=== PATIENT | male | born 1950 | race Hispanic/Latino ===

== ENCOUNTER 2018-10-06 06:53 | Emergency (ER) | payer MEDICARE ==
--- OUTSIDE RECORDS SUMMARY | 2018-10-06 06:57 | XMS REPORT ---
:1950 [facility] Address [address] [place] [address] Care Team Providers Name Role Phone Unavailable Unavailable Unavailable Payers Payer Name Policy Type Policy Number Effective Date Expiration Date Problems This patient has no known problems. Allergies, Adverse Reactions, Alerts Allergy Allergy Status Severity Reaction(s) Onset Inactive Treating Comments Name Type Date Date Clinician No Known DA Active U 2018-08 Allergies 00:00:0 0 Medications This patient has no known medications. Results Test Description Test Time Test Comments Text Results Atomic Results Result Comments COMPREHENSIVE METABOLIC PANEL 2018-09-27 14:09:00 Test Item Value Reference Range Comments SODIUM (test code=NA) 132 mEq/L 134-147 POTASSIUM (test code=K) 4.2 mEq/L 3.4-5.0 CHLORIDE (test code=CL) 102 mEq/L 100-108 CARBON DIOXIDE (test code=CO2) 24 mEq/L 21-33 ANION GAP (test code=GAP) 10 0-20 GLUCOSE (test code=GLU) 121 mg/dL 70-110 BLOOD UREA NITROGEN (test code=BUN) 12 mg/dL 7-18 GLOMERULAR FILTRATION RATE (test 74.1 80-90 Units of measure=ml/min/1.73 code=GFR) m2 CREATININE (test code=CREAT) 1.0 mg/dL 0.6-1.3 TOTAL PROTEIN (test code=PROT) 6.2 g/dL 6.4-8.2 ALBUMIN (test code=ALB) 2.30 g/dL 3.4-5.0 CALCIUM (test code=CA) 8.1 mg/dL 8.0-10.5 BILIRUBIN TOTAL (test code=BILT) 0.50 mg/dL 0.0-1.0 SGOT/AST (test code=AST) 46 IUnit/L 15-37 SGPT/ALT (test code=ALT) 76 IUnit/L 15-65 ALKALINE PHOSPHATASE TOTAL (test 128 IUnit/L 20-125 code=ALKP) COMPREHENSIVE METABOLIC [id number] 14:05:00 Test Item Value Reference Range Comments SODIUM (test code=NA) 132 mEq/L 134-147 POTASSIUM (test code=K) 4.2 mEq/L 3.4-5.0 CHLORIDE (test code=CL) 102 mEq/L 100-108 CARBON DIOXIDE (test code=CO2) 24 mEq/L 21-33 ANION GAP (test code=GAP) 10 0-20 GLUCOSE (test code=GLU) 121 mg/dL 70-110 BLOOD UREA NITROGEN (test 12 mg/dL 7-18 code=BUN) GLOMERULAR FILTRATION RATE 74.1 80-90 Units of (test code=GFR) measure=ml/min/1.73 m2 CREATININE (test code=CREAT) 1.0 mg/dL 0.6-1.3 TOTAL PROTEIN (test code=PROT) g/dL 6.4-8.2 ALBUMIN (test code=ALB) 2.30 g/dL 3.4-5.0 CALCIUM (test code=CA) 8.1 mg/dL 8.0-10.5 BILIRUBIN TOTAL (test mg/dL 0.0-1.0 code=BILT) SGOT/AST (test code=AST) 46 IUnit/L 15-37 SGPT/ALT (test code=ALT) 76 IUnit/L 15-65 ALKALINE PHOSPHATASE TOTAL IUnit/L 20-125 (test code=ALKP) CBC W/AUTO [id number] 13:55:00 Test Item Value Reference Range Comments WHITE BLOOD CELL (test code=WBC) 14.28 x10 3/uL 4.5-11.0 RED BLOOD CELL (test code=RBC) 4.54 x10 6/uL 4.00-5.60 HEMOGLOBIN (test code=HGB) 12.7 g/dL 12.5-16.9 HEMATOCRIT (test code=HCT) 39.6 % 37.5-50.7 MEAN CELL VOLUME (test code=MCV) 87.2 fL 81.0-99.0 MEAN CELL HGB (test code=MCH) 28.0 pg 27.0-33.0 MEAN CELL HGB CONCETRATION (test code=MCHC) 32.1 g/dL 33.0-37.0 RED CELL DISTRIBUTION WIDTH CV (test 13.0 % 11.5-14.5 code=RDW) RED CELL DISTRIBUTION WIDTH SD (test 41.3 fL 37.0-54.0 code=RDW-SD) PLATELET COUNT (test code=PLT) 378 x10 3/uL 150-400 MEAN PLATELET VOLUME (test code=MPV) 9.2 fL 7.0-9.0 NEUTROPHIL % (test code=NT%) 75.7 % 56.0-77.0 IMMATURE GRANULOCYTE % (test code=IG%) 1.1 % 0.0-2.0 LYMPHOCYTE % (test code=LY%) 10.8 % 14.0-32.0 MONOCYTE % (test code=MO%) 10.7 % 4.8-9.0 EOSINOPHIL % (test code=EO%) 1.1 % 0.3-3.7 BASOPHIL % (test code=BA%) 0.6 % 0.0-2.0 NUCLEATED RBC % (test code=NRBC%) 0.0 % 0-0 NEUTROPHIL # (test code=NT#) 10.82 x10 3/uL 2.0-7.6 IMMATURE GRANULOCYTE # (test code=IG#) 0.16 x10 3/uL 0.00-0.03 LYMPHOCYTE # (test code=LY#) 1.54 x10 3/uL 1.0-3.8 MONOCYTE # (test code=MO#) 1.53 x10 3/uL 0.1-0.8 EOSINOPHIL # (test code=EO#) 0.15 x10 3/uL 0.0-0.2 BASOPHIL # (test code=BA#) 0.08 x10 3/uL 0.0-0.2 NUCLEATED RBC # (test code=NRBC#) 0.00 x10 3/uL 0.0-0.1 MANUAL DIFF REQUIRED (test code=MDIFF) NO LACTIC ACID [id number] 14:05:00 Test Item Value Reference Range Comments LACTIC ACID POC (test 0.7 MMOL/L 0.90-1.70 Performed by certified code=LACTP) upset operator at [facility] PROTHROMBIN [id number] 13:52:00 Test Item Value Reference Range Comments PROTHROMBIN TIME PATIENT 12.9 SECONDS 9.3-12.9 (test code=PTP) INTERNATIONAL NORMAL RATIO 1.1 0.8-1.2 TARGET INR BY (test code=INR) INDICATION Indication INR1. Prophylaxis of venous thrombosis 2.0 - 3.0 (orthopedic surgery), Prophylaxis of venous thrombosis (other than high-risk surgery), Treatment of Deep Vein Thrombosis/Pulmonary Embolism, Prevention of systemic embolism - Tissue heart valves, Acute Myocardial Infarction (to prevent systemic embolism), Valvular heart disease, Atrial Fibrillation, Bileaflet mechanical valve in aortic position.2. Mechanical prosthetic valves (high risk), 2.5 - 3.5 Presence of Lupus Anticoagulant or Antiphospholipid Antibodies, Prevention of systemic embolism - Acute Myocardial Infarction (to prevent recurrent infarct). THROMBOPLASTIN TIME [id number] 13:52:00 Test Item Value Reference Range Comments THROMBOPLASTIN TIME PARTIAL 29.8 Seconds 25.0-39.5 Therapeutic Range: (test code=PTT) 50.4 - 88.3 Seconds Effective 09/14/2018 - XR HAND 3 + V [id number] 13:46:00 FAX: Gerber Casillas III [place]: St: REG FAX: Mariza Gallego [phone] --- Name: JONAS CASTELLANO [facility] : 1950 Age/S: 68/M [address] [place] [address] Unit #: [id number] Loc: [place] [address] Phys: Mariza Gallego Acct: [id number] Dis Date: Status: REG ER PHONE #: [phone] Exam Date: 09/25/2018 1319 FAX #: [phone] Reason: pain swelling hand EXAMS: CPT CODE: [id number] XR HAND 3 + [place] [id number] RIGHT HAND SERIES 09/25/2018 AT 1308 HOURS. CLINICAL HISTORY: Right hand pain and swelling. COMPARISONS: None. FINDINGS: 3 AP, lateral and oblique views of the right hand were obtained showing diffuse circumferential soft tissue swelling on a background of diffuse osteopenia and moderate to severe polyarticular osteoarthritis. No fracture, dislocation ordestructive bone lesions. No bony erosions. No soft tissue calcinosis, air or radiopaque foreign body. IMPRESSION: 1. Diffuse soft tissue edema and or cellulitis involving the right hand. 2. 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 SL: GUMEH at 2537 Reportedand signed by: Ham Xiong M.D. CC: Gerber Martin III, MD ; Mariza Gallego Technologist: Mary Castillo RT(R) Trnscrd Date/Time/By: 09/25/2018(0997) : By: [email or web address] Orig Print D/T: S: 09/25/2018 (1251) PAGE 1 Signed ReportBASIC METABOLIC [id number] 13:45:00 Test Item Value Reference Range Comments SODIUM (test code=NA) 136 mEq/L 134-147 POTASSIUM (test code=K) 3.9 mEq/L 3.4-5.0 CHLORIDE (test code=CL) 104 mEq/L 100-108 CARBON DIOXIDE (test code=CO2) 27 mEq/L 21-33 ANION GAP (test code=GAP) 9 0-20 GLUCOSE (test code=GLU) 158 mg/dL 70-110 BLOOD UREA NITROGEN (test 21 mg/dL 7-18 code=BUN) GLOMERULAR FILTRATION RATE 95.8 80-90 Units of measure=ml/min/1.73 (test code=GFR) m2 CREATININE (test code=CREAT) 0.8 mg/dL 0.6-1.3 CALCIUM (test code=CA) 8.7 mg/dL 8.0-10.5 URIC [id number] 13:45:00 Test Item Value Reference Range Comments URIC ACID (test code=URIC) 4.4 mg/dL 2.6-7.2 CBC W/AUTO [id number] 13:38:00 Test Item Value Reference Range Comments WHITE BLOOD CELL (test code=WBC) 11.82 x10 3/uL 4.5-11.0 RED BLOOD CELL (test code=RBC) 4.59 x10 6/uL 4.00-5.60 HEMOGLOBIN (test code=HGB) 12.7 g/dL 12.5-16.9 HEMATOCRIT (test code=HCT) 38.7 % 37.5-50.7 MEAN CELL VOLUME (test code=MCV) 84.3 fL 81.0-99.0 MEAN CELL HGB (test code=MCH) 27.7 pg 27.0-33.0 MEAN CELL HGB CONCETRATION (test code=MCHC) 32.8 g/dL 33.0-37.0 RED CELL DISTRIBUTION WIDTH CV (test 12.6 % 11.5-14.5 code=RDW) RED CELL DISTRIBUTION WIDTH SD (test 38.6 fL 37.0-54.0 code=RDW-SD) PLATELET COUNT (test code=PLT) 374 x10 3/uL 150-400 MEAN PLATELET VOLUME (test code=MPV) 9.4 fL 7.0-9.0 NEUTROPHIL % (test code=NT%) 74.1 % 56.0-77.0 IMMATURE GRANULOCYTE % (test code=IG%) 1.5 % 0.0-2.0 LYMPHOCYTE % (test code=LY%) 12.9 % 14.0-32.0 MONOCYTE % (test code=MO%) 9.6 % 4.8-9.0 EOSINOPHIL % (test code=EO%) 1.4 % 0.3-3.7 BASOPHIL % (test code=BA%) 0.5 % 0.0-2.0 NUCLEATED RBC % (test code=NRBC%) 0.0 % 0-0 NEUTROPHIL # (test code=NT#) 8.75 x10 3/uL 2.0-7.6 IMMATURE GRANULOCYTE # (test code=IG#) 0.18 x10 3/uL 0.00-0.03 LYMPHOCYTE # (test code=LY#) 1.52 x10 3/uL 1.0-3.8 MONOCYTE # (test code=MO#) 1.14 x10 3/uL 0.1-0.8 EOSINOPHIL # (test code=EO#) 0.17 x10 3/uL 0.0-0.2 BASOPHIL # (test code=BA#) 0.06 x10 3/uL 0.0-0.2 NUCLEATED RBC # (test code=NRBC#) 0.00 x10 3/uL 0.0-0.1 MANUAL DIFF REQUIRED (test code=MDIFF) NO
[2018-10-06] MEDS ORDERED: NA CHLORIDE 0.9% 0 ML ONE (07:46)
[2018-10-06 08:21] LABS: Absolute Lymphocytes (CBC) 1.1 K/uL (0.7-4.9); Absolute Monocytes 1.4 K/uL (0.1-1.3); Absolute Neutrophil 12.3 K/uL (1.8-8.0); Basophils % 0.5 % (0-1.3); Eosinophils % 0.1 % (0-4.4); Hematocrit 41.2 % (39.6-49.0); Lymphocytes % 7.5 % (15.3-44.8); MPV 7.9 fL (7.6-11.3); Monocytes % 9.2 % (3.3-12.3); RBC Red Blood Cell Count 4.92 M/uL (4.33-5.43)
[2018-10-06] MEDS ORDERED: NA CHLORIDE 0.9% 1,000 ML ONE ×2 (08:23→08:25)
[2018-10-06] MEDS ORDERED: ONDANSETRON 4 MG/2 ML VIAL ONE (08:36)
[2018-10-06 08:38] LABS: Protime INR 1.13
[2018-10-06 08:55] LABS: ALT/SGPT 77 U/L (12-78); AST/SGOT 36 U/L (15-37); Albumin 2.6 g/dL (3.4-5.0); Alkaline Phosphatase 146 U/L (45-117); BUN Blood Urea Nitrogen 19 mg/dL (7-18); Bicarbonate 25 mmol/L (21-32); Bilirubin Direct 0.2 mg/dL (0-0.2); Bilirubin Total 0.7 mg/dL (0.2-1.0); CKMB Creatine Kinase MB < 1.0 ng/mL (0.3-3.6); Creatine Phosphokinase 16 U/L (39-308); Glucose Level 93 mg/dL (74-106); Lipase 142 U/L (73-393); Potassium 4.4 mmol/L (3.5-5.1); Protein, Total 7.3 g/dL (6.4-8.2); Sodium Level 132 mmol/L (136-145); Troponin (Emerg Dept Use Only) < 0.02 ng/mL (0.0-0.045)
[2018-10-06 09:00] LABS: Urine Bacteria <20 /HPF (NONE SEEN); Urine Culture Reflex Order NOT NEEDED; Urine Mucus 3+ /HPF (NONE SEEN); Urine RBC <5 /HPF (NONE SEEN)
[2018-10-06 09:45] LABS: Urine Blood NEGATIVE (NEG); Urine Glucose NEGATIVE (NEG); Urine Protein 1+ (NEG); Urine pH 6.5 (5.0-7.0)
[2018-10-06] MEDS ORDERED: PIPER/TAZO/NS 3.375gm 3.375 GM/100 ML BAG ONE (10:03)
--- NOTE | 2018-10-06 10:29 | RAD REPORT ---
EXAM DESCRIPTION: Tessa Single View10/06/2018 7:55 am CLINICAL HISTORY: Weight loss COMPARISON: July 2017 FINDINGS: Mild bilateral reticular lung opacities. The heart is normal size IMPRESSION: Mild bilateral reticular lung opacities may indicate pneumonitis/pneumonia
--- NOTE | 2018-10-06 10:34 | RAD REPORT ---
EXAM DESCRIPTION: CT - Abdomen Pelvis W Contrast - 10/06/2018 10:11 am CLINICAL HISTORY: Abdominal pain, unexplained weight loss COMPARISON: None. TECHNIQUE: Biphasic, helical CT imaging of the abdomen and pelvis was performed following 100 ml non -ionic IV contrast. Oral contrast was given. All CT scans are performed using dose optimization technique as appropriate and may include automated exposure control or mA/KV adjustment according to patient size. FINDINGS: No large mass or consolidation. Reticulonodular opacities present in the lower right lung field. No pericardial effusion. [place] of the distal esophagus are thickened. Multiple lymph nodes are seen near the GE junction up to 2.7 cm in size. Several are centrally lucent. Liver size is normal. A 5 centimeter thin-walled homogeneous fluid attenuation mass in the medial rig ht lower lobe has the appearance of a benign incidental cyst. In the inferior most aspect right lobe there is a 15 millimeter rounded low-density mass not meeting strict cyst criteria. Spleen and pancreas show no suspicious findings. Gallbladder and biliary tree are also without suspic ious finding. Gallstones can be occult. Renal function is symmetric. There is mild left-sided hydronephrosis present without an obstructing c alculus, mass or other acute finding identifiable. No pyelonephritis or acute parenchymal process. No bladder abnormalities. Right adrenal mass is present 2.5 cm in size. This does not meet benign adeno ma diagnostic criteria. Stomach is only partially filled with contrast. No gross evidence for gastric wall mass. No dilated s mall bowel loops. [place] of the terminal ileum appear thickened. Patient has numerous lymph nodes in t he right lower quadrant and periappendiceal region up to 15 mm in size. Many of these are centrally h ypodense. In the midline abdomen (image 47/103) there is a 3.5 x 2.3 centimeter mass or large lymph n ode. Another 2.1 centimeter mass or lymph node is present in the left anterior abdomen mesenteric a ( image 43/103). These mesenteric lymph nodes have a similar imaging characteristics to the GE junction region lymph nodes. The dominant mid abdomen 3.5 centimeter mass does not have calcifications. No ca lcifications in the mesenteries. No free air, pneumatosis or free fluid. There is sigmoid diverticulosis without diverticulitis. Large fat only right inguinal hernia present. No suspicious bony findings. IMPRESSION: No bowel obstruction, free air or surgically emergent finding. Patient has multiple abnormal lymph nodes at the GE junction, central mesentery, right lower quadrant and periappendiceal region. Largest mass in the central mesenteric does not contain calcifications. [place] of the terminal ileum are thickened but no other bowel mass or focal abnormality. Appendix is n ormal in appearance. Distal esophagus de la cruz are thickened. Nonspecific reticulonodular opacities in the right lower lobe that have a infectious/inflammatory tiana earance. Malignancy is suspected rather than reactive lymphadenopathy. Carcinoid would be a possibility. Lymph carol is possible as well. A definitive primary malignancy is not identifiable.
--- NOTE | 2018-10-06 10:39 | EKG ---
Test Date: 2018-10-06 Test Time: 07:46:30 Jewel Bearing Turner: ROSA MEASUREMENT RESULTS: Intervals: Rate: 121 VT: 128 QRSD: 74 QT: 306 QTc: 434 [place]: P: 78 VT: 128 QRS: 24 T: 56 INTERPRETIVE STATEMENTS: Sinus tachycardia Otherwise normal ECG Compared to ECG 04/29/1998 17:39:00 ST (T wave) deviation no longer present Electronically Signed On 10-06-18 10:38:58 CDT by Javier Dolan
--- NOTE | 2018-10-06 11:33 | ER ---
Nurse's Notes [facility] Name: Manjit Delong Age: 68 yrs Sex: Male : 1950 Arrival Date: 10/06/2018 Time: 07:00 Bed 15 Private MD: Diagnosis: Weakness;Abnormal weight loss;Malignant etiology of unknown origin;Fever, unspecified Presentation: 10/06 07:11 Presenting complaint: Patient states: R arm pain x 1 month, decreased appetite and ss weight loss x 3 weeks. Pt reports a total weight loss of 20 lbs, recently. Has been seen in [place] [facility] and [place] [facility] and was told he has a low blood count and arthritis to his R arm. Transition of care: patient was not received from another setting of care. Onset of symptoms was August 2018. Risk Assessment: Do you want to hurt yourself or someone else? Patient reports no desire to harm self or others. Initial Sepsis Screen: Does the patient meet any 2 criteria? No. Patient's initial sepsis screen is negative. Does the patient have a suspected source of infection? No. Patient's initial sepsis screen is negative. Care prior to arrival: None. 07:11 Method Of Arrival: Ambulatory ss 07:11 Acuity: DARLYN 2 ph 07:12 Risk Assessment: Do you want to hurt yourself or someone else? Patient reports no ph desire to harm self or others. Historical: - Allergies: 07:13 No Known Allergies; ph - PMHx: 07:13 Hypertension; ph - PSHx: 07:13 None; ph - Immunization history:: Adult Immunizations up to date. - Social history:: Smoking status: Patient/guardian denies using tobacco, but has a distant history of tobacco abuse. - Ebola Screening: : No symptoms or risks identified at this time. Screenin:12 Abuse screen: Denies threats or abuse. Denies injuries from another. Nutritional ph screening: No deficits noted. Tuberculosis screening: No symptoms or risk factors identified. Fall Risk None identified. Assessment: 07:30 General: Appears in no apparent distress. comfortable, slender, well groomed, Behavior ph is calm, cooperative, appropriate for age, Reports fever for > 3 days, intermittent. Pain: Complains of pain in right hand. Neuro: Level of Consciousness is awake, alert, obeys commands, Oriented to person, place, time, situation, Reports numbness in dorsal aspect of distal phalanx of right index finger, dorsal aspect of middle phalanx of right index finger, dorsal aspect of proximal phalanx of right index finger, dorsal aspect of distal phalanx of right middle finger, dorsal aspect of middle phalanx of right middle finger, dorsal aspect of proximal phalanx of right middle finger and right index fingernail weakness in " all over" Denies dizziness, difficulty swallowing. Cardiovascular: Reports fatigue, lightheadedness, Denies chest pain, nausea, shortness of breath, vomiting, Capillary refill < 3 seconds in bilateral fingers Patient's skin is warm and dry. Respiratory: Airway is patent Respiratory effort is even, unlabored, Respiratory pattern is regular, symmetrical, Denies cough, shortness of breath. GI: Abdomen is flat, non-distended, Patient currently denies abdominal pain, diarrhea, nausea, vomiting. : Reports urinary frequency, Denies burning with urination. Derm: Skin is intact, Skin is pink, warm \\T\\ dry. Musculoskeletal: Circulation, motion, and sensation intact. Range of motion: intact in all extremities. 08:30 Reassessment: Patient appears in no apparent distress at this time. Patient and/or ph family updated on plan of care and expected duration. Pain level reassessed. Patient is alert, oriented x 3, equal unlabored respirations, skin warm/dry/pink. Pt completed PO contrast CT notified. 09:30 Reassessment: Patient appears in no apparent distress at this time. Patient and/or ph family updated on plan of care and expected duration. Pain level reassessed. Patient is alert, oriented x 3, equal unlabored respirations, skin warm/dry/pink. Pt resting quietly, awaiting CT scan, family at bedside. 10:30 Reassessment: Patient and/or family updated on plan of care and expected duration. Pain aj1 level reassessed. General: Appears in no apparent distress. comfortable, Behavior is calm, cooperative, appropriate for age. Neuro: Level of Consciousness is awake, alert, obeys commands. Cardiovascular: Patient's skin is warm and dry. Respiratory: Airway is patent Respiratory effort is even, unlabored, Respiratory pattern is regular, symmetrical. GI: Abdomen is flat, non-distended. Derm: Skin is pink, warm \\T\\ dry. normal. Musculoskeletal: Circulation, motion, and sensation intact. 11:30 Reassessment: Patient appears in no apparent distress at this time. No changes from aj1 previously documented assessment. Patient and/or family updated on plan of care and expected duration. Pain level reassessed. Patient is alert, oriented x 3, equal unlabored respirations, skin warm/dry/pink. 12:30 Reassessment: Patient states that he feels very hot, patient appears flushed. Notified aj1 Javier Funk NP that patient is presently flushed, febrile. Orders received. 13:30 Reassessment: Patient states that he is feeling a bit better since administration of aj1 Motrin. 14:22 Reassessment:. aj1 14:39 Reassessment: Patient and/or family updated on plan of care and expected duration. Pain aj1 level reassessed. General: Appears in no apparent distress. comfortable, Behavior is calm, cooperative, appropriate for age. Neuro: Level of Consciousness is awake, alert, obeys commands. Cardiovascular: Patient's skin is warm and dry. Respiratory: Airway is patent Respiratory effort is even, unlabored, Respiratory pattern is regular, symmetrical. GI: Abdomen is flat, non-distended. Derm: Skin is pink, warm \\T\\ dry. normal. Musculoskeletal: Circulation, motion, and sensation intact. 15:42 Reassessment: Patient appears in no apparent distress at this time. No changes from aj1 previously documented assessment. Patient and/or family updated on plan of care and expected duration. Pain level reassessed. Patient is alert, oriented x 3, equal unlabored respirations, skin warm/dry/pink. Vital Signs: 07:11 Weight 68.04 kg; Height 5 ft. 6 in. (167.64 cm); ss 07:23 BP 142 / 81; Pulse 122; Resp 20; Temp 99.6; Pulse Ox 98% on R/A; Weight 68.04 kg; ph 08:25 BP 144 / 71; Pulse 112; Resp 18; Temp 99.6(TE); Pulse Ox 98% on R/A; mh5 09:38 BP 140 / 72; Pulse 109; Resp 18; Temp 98.6(O); Pulse Ox 99% on R/A; mh5 10:42 BP 147 / 72; Pulse 112; Resp 17; Temp 98.9; Pulse Ox 97% on R/A; mh5 11:45 BP 144 / 69; Pulse 118; Resp 20; Pulse Ox 99% on R/A; aj1 12:24 BP 157 / 75; Pulse 122; Resp 20; Temp 102.6(O); Pulse Ox 99% on R/A; mh5 13:14 BP 153 / 67; Pulse 118; Resp 20; Temp 101.8(O); Pulse Ox 98% ; mh5 14:07 BP 135 / 73; Pulse 117; Resp 20; Temp 98.6; Pulse Ox 97% on R/A; aj1 15:42 BP 143 / 56; Pulse 102; Resp 20; Temp 98.4(O); Pulse Ox 98% on R/A; aj1 07:23 Body Mass Index 24.21 (68.04 kg, 167.64 cm) ph ED Course: 07:00 Patient arrived in ED. es 07:06 [facility]C [facility] snw 07:06 Jarrett Lei MD is Attending Physician. snw 07:11 Kathya Meeks, CARLENE is Primary Nurse. ph 07:11 Arm band placed on right wrist. ss 07:13 Triage completed. ss 07:24 Served as a staff auditor during rectal exam. ph 07:46 EKG done, by endo tech. reviewed by Annika DAVIDSON. at1 07:50 Inserted saline lock: 20 gauge in right antecubital area, using aseptic technique. mh5 Blood collected. 07:54 X-ray completed. Portable x-ray completed in exam room. Patient tolerated procedure kw well. 07:55 Chest Single View XRAY In Process Unspecified. EDMS 08:05 Initial lab(s) drawn, by ks, sent to lab. First set of blood cultures drawn by me, [facility] Second set of blood cultures drawn by me, T\\T\\S collected, blood band applied to patient. 08:15 Patient has correct armband on for positive identification. Placed in gown. Bed in low mh5 position. Call light in reach. Side rails up X 1. Adult w/ patient. Warm blanket given. Pulse ox on. NIBP on. 08:28 Liver (Hepatic) Function Sent. mh5 08:28 Creatine Phosphokinase Sent. mh5 08:28 CKMB Creatine Kinase MB Sent. mh5 08:28 Occult Blood--Ancillary Sent. mh5 08:28 Basic Metabolic Panel Sent. mh5 08:28 Blood Culture Sent. mh5 08:28 Type and Screen Sent. mh5 08:28 C-Reactive Protein Sent. mh5 08:29 T\\T\\S Sent. mh5 08:29 C-Reactive Protein Sent. 5 08:29 Bilirubin, Direct Sent. mh5 08:29 Basic Metabolic Panel Sent. mh5 08:29 Blood Culture Adult (2) Sent. 5 08:29 CBC with Diff Sent. 5 08:30 Ckmb Sent. 5 08:30 CPK Sent. 5 08:30 Lactate Sent. 5 08:30 Lipase Sent. 5 08:30 Procalcitonin Sent. 5 08:30 Protime (+inr) Sent. 5 08:31 Ptt, Activated Sent. 5 08:31 Troponin (emerg Dept Use Only) Sent. [facility] 10:00 CT completed. Patient moved to CT via wheelchair. jg6 10:11 CT Abd/Pelvis - W/Contrast In Process Unspecified. EDMS 11:30 Louisa Krishna MD is Hospitalizing Provider. snw 14:21 Report given to CARLENE Larsen at [facility]. aj1 15:42 Patient transferred, IV remains in place. aj1 Administered Medications: 08:20 Drug: NS 0.9% (30 ml/kg) 30 ml/kg Route: IV; Rate: bolus; Site: right antecubital; ph 10:38 Follow up: Response: No adverse reaction; IV Status: Completed infusion; IV Intake: ph 2000ml 08:31 Drug: Zofran 4 mg Route: IVP; Site: right antecubital; ph 10:37 Follow up: Response: No adverse reaction; Nausea is decreased ph 11:17 Drug: Zosyn 3.375 grams Route: IVPB; Infused Over: 60 mins; Site: right antecubital; aj1 12:15 Follow up: IV Status: Completed infusion; IV Intake: 100ml aj1 12:59 Drug: Motrin 600 mg Route: PO; aj1 14:40 Follow up: Response: No adverse reaction aj1 Point of Care Testing: Blood Glucose: 08:15 Blood Glucose: 104 mg/dL; [facility] Ranges: Intake: 10:38 IV: 2000ml; Total: 2000ml. ph 12:15 IV: 100ml; Total: 2100ml. aj1 Outcome: 11:33 Decision to Hospitalize by Provider. snw 14:14 ER care complete, transfer ordered by . snw 15:43 [facility]red by ground EMS to [facility]. aj1 15:43 Condition: stable 15:43 Discharge instructions given to patient, family, Instructed on the need for admit, Demonstrated understanding of instructions. 16:05 Patient left the ED. aj1 Signatures: Dispatcher [employer] EDGosia Burroughs RN RN aj1 Annika Funk, CURVE SAW OPERATOR-C CURVE SAW OPERATOR-Csnw Nikia Alarcon Shelby, RN RN Mary Sharif Amanda, pickling solution maker EKG Tat1 Kathya Meeks RN RN Keyana Chadwick [facility] Alonzo, Tamanna 6 Corrections: (The following items were deleted from the chart) 07:24 07:11 Acuity: DARLYN 3 ss ph
--- NOTE | 2018-10-06 11:34 | EDPHYS ---
Physician Documentation [facility] Name: Manjit Delong Age: 68 yrs Sex: Male : 1950 Arrival Date: 10/06/2018 Time: 07:00 Bed 15 Private MD: ED Physician Jarrett Lei HPI: 10/06 07:37 This 68 yrs old Male presents to ER via Ambulatory with complaints of snw Weakness, Decreased Appetite. 07:37 The patient presents to the emergency department with weakness of the entire body, snw generalized weakness, that is moderate. Onset: The symptoms/episode began/occurred gradually, 1 month(s) ago, and became worse and became persistent. Context: occurred at home. Associated signs and symptoms: Pertinent positives: paresthesias, to right shoulder, elbow, hand. Severity of symptoms: At their worst the symptoms were moderate. Current symptoms: malaise, fatigue. The patient has not experienced similar symptoms in the past. multiple different providers that have given medication for "skin infection" and then "arthritis", pt was told he was anemic. Historical: - Allergies: 07:13 No Known Allergies; ph - PMHx: 07:13 Hypertension; ph - PSHx: 07:13 None; ph - Immunization history:: Adult Immunizations up to date. - Social history:: Smoking status: Patient/guardian denies using tobacco, but has a distant history of tobacco abuse. - Ebola Screening: : No symptoms or risks identified at this time. ROS: 07:36 Eyes: Negative for injury, pain, redness, and discharge, ENT: Negative for injury, snw pain, and discharge, Neck: Negative for injury, pain, and swelling, Cardiovascular: Negative for chest pain, palpitations, and edema, Respiratory: Negative for shortness of breath, cough, wheezing, and pleuritic chest pain, Back: Negative for injury and pain, : Negative for injury, bleeding, discharge, and swelling, MS/Extremity: Negative for injury and deformity, Skin: Negative for injury, rash, and discoloration, Neuro: Negative for headache, weakness, numbness, tingling, and seizure, Psych: Negative for depression, anxiety, suicide ideation, homicidal ideation, and hallucinations. 07:36 Constitutional: Positive for body aches, fatigue, malaise, poor PO intake, weight loss. 07:36 Abdomen/GI: Positive for anorexia, 20# wt loss in 3wks. Exam: 07:32 Head/Face: Normocephalic, atraumatic. snw 07:32 ENT: Nares patent. No nasal discharge, no septal abnormalities noted. Tympanic membranes are normal and external auditory canals are clear. Oropharynx with no redness, swelling, or masses, exudates, or evidence of obstruction, uvula midline. Mucous membranes moist. Neck: Trachea midline, no thyromegaly or masses palpated, and no cervical lymphadenopathy. Supple, full range of motion without nuchal rigidity, or vertebral point tenderness. No Meningismus. Chest/axilla: Normal chest wall appearance and motion. Nontender with no deformity. No lesions are appreciated. 07:32 Respiratory: Lungs have equal breath sounds bilaterally, clear to auscultation and percussion. No rales, rhonchi or wheezes noted. No increased work of breathing, no retractions or nasal flaring. Abdomen/GI: Soft, non-tender, with normal bowel sounds. No distension or tympany. No guarding or rebound. No evidence of tenderness throughout. Back: No spinal tenderness. No costovertebral tenderness. Full range of motion. 07:32 MS/ Extremity: Pulses equal, no cyanosis. Neurovascular intact. Full, normal range of motion. Neuro: Awake and alert, GCS 15, oriented to person, place, time, and situation. Cranial nerves II-XII grossly intact. Motor strength 5/5 in all extremities. Sensory grossly intact. Cerebellar exam normal. Normal gait. 07:32 Constitutional: The patient appears alert, awake, anxious, frail, clothes too big 07:32 Eyes: Conjunctiva: normal, Sclera: icterus, is present, mild. 07:32 Cardiovascular: Rate: tachycardic, Heart sounds: normal, JVD: is noted on left, to 2 cm.. 07:32 Skin: Appearance: Color: dusky, pale. 07:32 Psych: Behavior/mood is pleasant, cooperative, anxious. 07:49 ECG was reviewed by the Attending Physician. snw Vital Signs: 07:11 Weight 68.04 kg; Height 5 ft. 6 in. (167.64 cm); ss 07:23 BP 142 / 81; Pulse 122; Resp 20; Temp 99.6; Pulse Ox 98% on R/A; Weight 68.04 kg; ph 08:25 BP 144 / 71; Pulse 112; Resp 18; Temp 99.6(TE); Pulse Ox 98% on R/A; mh5 09:38 BP 140 / 72; Pulse 109; Resp 18; Temp 98.6(O); Pulse Ox 99% on R/A; mh5 10:42 BP 147 / 72; Pulse 112; Resp 17; Temp 98.9; Pulse Ox 97% on R/A; mh5 11:45 BP 144 / 69; Pulse 118; Resp 20; Pulse Ox 99% on R/A; aj1 12:24 BP 157 / 75; Pulse 122; Resp 20; Temp 102.6(O); Pulse Ox 99% on R/A; mh5 13:14 BP 153 / 67; Pulse 118; Resp 20; Temp 101.8(O); Pulse Ox 98% ; mh5 14:07 BP 135 / 73; Pulse 117; Resp 20; Temp 98.6; Pulse Ox 97% on R/A; aj1 15:42 BP 143 / 56; Pulse 102; Resp 20; Temp 98.4(O); Pulse Ox 98% on R/A; aj1 07:23 Body Mass Index 24.21 (68.04 kg, 167.64 cm) ph MDM: 07:06 Patient medically screened. snw 11:33 Data reviewed: vital signs, nurses notes. Data interpreted: Pulse oximetry: on room air snw is 97 %. Interpretation: normal. Counseling: I had a detailed discussion with the patient and/or guardian regarding: the historical points, exam findings, and any diagnostic results supporting the discharge/admit diagnosis, lab results, radiology results, the need for further work-up and treatment in the hospital. Physician consultation: Citlaly Araujo MD was called at 11:33, was contacted at 11:33, regarding admission, to the medical/surgical unit. 12:09 ED course: Dr. Krishna has spoken with general surgery, GI specialist x 2, and Dr. Krishnamurthy. snw Request pt be transferred to higher level of care for EUS/FNA. 12:36 Physician consultation: Dr. Bruce was called at 12:36, was contacted at 12:36, snw regarding regarding transfer, to [facility]. 12:38 Physician consultation: Dr. Kamara was called at 12:38, was contacted at 12:38, [facility] regarding consult, patient's condition, Dr. Kamara kindly accepts consult. Hospitalist will call back shortly.. 10/06 07:28 Order name: Urine Culture [facility] 10/06 07:28 Order name: T\\T\\S [facility] 10/06 07:28 Order name: C-Reactive Protein [facility] 10/06 07:28 Order name: Bilirubin, Direct [facility] 10/06 07:28 Order name: Basic Metabolic Panel [facility] 10/06 07:28 Order name: Blood Culture Adult (2) [facility] 10/06 07:28 Order name: CBC with Diff [facility] 10/06 07:28 Order name: Ckmb [facility] 10/06 07:28 Order name: CPK [facility] 10/06 07:28 Order name: Lactate; Complete Time: 08:40 snw 10/06 07:28 Order name: LFT's [facility] 10/06 07:28 Order name: Lipase; Complete Time: 09:03 snw 10/06 07:28 Order name: Procalcitonin; Complete Time: 09:38 snw 10/06 07:28 Order name: Protime (+inr); Complete Time: 09:03 snw 10/06 07:28 Order name: Ptt, Activated; Complete Time: 09:03 snw 10/06 07:28 Order name: Troponin (emerg Dept Use Only); Complete Time: 09:03 snw 10/06 07:28 Order name: Urine Microscopic Only; Complete Time: 09:03 snw 10/06 07:29 Order name: Urine Culture [facility] 10/06 07:29 Order name: Type and Screen; Complete Time: 09:38 EDMS 10/06 07:29 Order name: C-Reactive Protein; Complete Time: 09:03 EDMS 10/06 07:29 Order name: Basic Metabolic Panel; Complete Time: 09:03 EDMS 10/06 07:29 Order name: Blood Culture [facility] 10/06 07:29 Order name: CBC with Automated Diff; Complete Time: 08:28 EDMS 10/06 07:29 Order name: Occult Blood--Ancillary; Complete Time: 09:38 bd 10/06 07:29 Order name: CKMB Creatine Kinase MB; Complete Time: 09:03 EDMS 10/06 07:29 Order name: Creatine Phosphokinase; Complete Time: 09:03 EDMS 10/06 07:30 Order name: Liver (Hepatic) Function; Complete Time: 09:03 EDMS 10/06 07:46 Order name: Urine Dipstick--Ancillary (enter results); Complete Time: 09:46 bd 08 08:13 Order name: Glucose, Ancillary Testing; Complete Time: 08:21 EDMS 10/06 07:28 Order name: Chest Single View XRAY; Complete Time: 10:31 snw 10/06 07:28 Order name: Cardiac monitoring; Complete Time: 07:40 snw 10/06 07:28 Order name: EKG - Nurse/Tech; Complete Time: 08:08 snw 10/06 07:28 Order name: IV Saline Lock - Large Bore; Complete Time: 08:08 snw 10/06 07:28 Order name: Labs collected and sent; Complete Time: 08:08 snw 10/06 07:28 Order name: O2 Per Protocol; Complete Time: 07:40 snw 10/06 07:28 Order name: O2 Sat Monitoring; Complete Time: 07:40 snw 10/06 07:28 Order name: Urine Dipstick-Ancillary (obtain specimen); Complete Time: 07:40 snw 10/06 07:28 Order name: CT Abd/Pelvis - W/Contrast; Complete Time: 10:41 snw 08 10:10 Order name: EKG Electrocardiogram EDMS 10/06 12:33 Order name: Flu; Complete Time: 13:41 snw EC:49 Rate is 121 beats/min. Rhythm is regular. QRS Wink is Normal. AL interval is normal. snw QRS interval is normal. QT interval is normal. No Q waves. T waves are Normal. No ST changes noted. Clinical impression: Sinus tachycardia and with biphasic p wave. Administered Medications: 08:20 Drug: NS 0.9% (30 ml/kg) 30 ml/kg Route: IV; Rate: bolus; Site: right antecubital; ph 10:38 Follow up: Response: No adverse reaction; IV Status: Completed infusion; IV Intake: ph 2000ml 08:31 Drug: Zofran 4 mg Route: IVP; Site: right antecubital; ph 10:37 Follow up: Response: No adverse reaction; Nausea is decreased ph 11:17 Drug: Zosyn 3.375 grams Route: IVPB; Infused Over: 60 mins; Site: right antecubital; [facility] 12:15 Follow up: IV Status: Completed infusion; IV Intake: 100ml [facility] 12:59 Drug: Motrin 600 mg Route: PO; aj 14:40 Follow up: Response: No adverse reaction aj Point of Care Testing: Blood Glucose: 08:15 Blood Glucose: 104 mg/dL; mh5 Ranges: Critical Glucose Levels:Adult <50 mg/dl or >400 mg/dl <40 mg/dl or >180 mg/dl Disposition: 10/07 06:56 Co-signature as Attending Physician, Jarrett Lei MD I agree with the assessment and kdr plan of care. Disposition: 10/06/18 14:14 Transfer ordered to [facility]. Diagnosis are Weakness, Abnormal weight loss, Malignant etiology of unknown origin, Fever, unspecified. - Reason for transfer: Higher level of care. - Accepting physician is Dr. Bruce. - Condition is Stable. - Problem is new. - Symptoms have worsened. Signatures: Dispatcher [employer] [facility] Gosia Smith RN RN aj1 Jarrett Lei MD MD [facility] Annika Funk, LINEN ATTENDANT-C LINEN ATTENDANT-Csnw Emerita Forte RN RN Kathya Meeks RN RN ph Corrections: (The following items were deleted from the chart) 10/06 07:30 07:29 Bilirubin Direct ordered. [facility] 12:09 11:33 Hospitalization Ordered by Louisa Krishna MD for Inpatient Admission. Preliminary snw diagnosis is Weakness; Abnormal weight loss; Inflammatory disease of abdomen - + CT findings for malignant etiology. Bed requested for Telemetry/MedSurg (Inpatient). Status is Inpatient Admission. Condition is Stable. Problem is new. Symptoms are unchanged. UTI on Admission? No. snw 14:22 13:25 Physician consultation: Dr. Bruce was called at 13:25, was contacted at 13:25, [facility] regarding regarding transfer, Dr. Bruce kindly accepts pt in transfer sn 16:05 14:14 10/06/2018 14:14 Transfer ordered to [facility]. Diagnosis is aj1 Weakness; Abnormal weight loss; Malignant etiology of unknown origin; Fever, unspecified. Reason for transfer: Higher level of care. Accepting physician is Dr. Bruce. Condition is Stable. Problem is new. Symptoms have worsened. snw
--- NOTE | 2018-10-06 12:43 | P.CNS ---
Date of Consult: 10/06/18 Consultation Requested by ER for hospitalization. 68-year-old male with significant history presented to the ED complaining of having some generalized weakness on intentional weight loss just not feeling well for past 3 weeks. Patient stated that over time he has been having worsening of his symptoms and thus decided to come to the ER. In the ER patient had extensive workup done which included CBC CMP abdominal CT and chest x-ray. CBC was consistent with elevated white count [id number] along with elevated CRP of 276. Patient also was tachycardic with a heart rate of 120. Patient abdominal CT was consistent with marked lymphadenopathy in the distal esophagus area along with the mesenteric [place]. Abdominal CT was concerning for carcinoid tumor versus lymphoma rather than infectious etiology. ED the consulted hospital is an general surgery for admission the patient for medical management and surgical procedure. After reviewing the case thoroughly looking at all the imaging and lab work and discussing the case with GI, general surgery , oncology patient at this time will require tissue biopsy for starting medical management for carcinoid tumor versus lymphoma. Abdominal CT did not have any lymph nodes that were able to be biopsied in the colon are a colonoscopy at this time would not be beneficial for diagnosis. Patient however can't get and notes biopsy that were present in the distal esophagus area and requires EUS- FNA the biopsy and get a tissue diagnosis for the patient. At that time PA in the ER was notified regarding the need to transfer the patient to a higher level of care for further treatment. Patient can have a colonoscopy done along with the [place] at the tertiary care centers well. ED physician was also notified that patient did also have lab work done there to achieve the final diagnosis. At this time for the consultation with GI, general surgery, oncology hospitalist team recommends the patient be transferred to a tertiary center for further care to 1st get a tissue biopsy if an appropriate diagnosis for medical management. If the patient seen in the ER for and okay with the tertiary center patient can have workup done outpatient however we will leave it up to the tertiary care doctor to make that decision.
[2018-10-06] MEDS ORDERED: IBUPROFEN 400 MG TAB ONE (13:00)
[2018-10-06] MEDS ORDERED: IBUPROFEN 200 MG TAB PO ONE ×2 (13:01→13:07)
== END 2018-10-06 16:05 | disposition short-term general hospital (02) ==
LOC: ER 06:53
DX: C80.1 Malignant (primary) neoplasm, unspecified (principal); R63.4 Abnormal weight loss; R50.9 Fever, unspecified; I10 Essential (primary) hypertension
CPT/HCPCS: 96365; 96367; 93005; 87040 ×2; 87088; 85025; 80048; 36415; 86900; 86850; 82550; 85610; 86901; 82962; 80076; 83605; 85730; 82272; 84484; 82553; 83690; 84145; 86140; 87804 ×2; 74177; 71045; 96375; 99285; 96366; Q9967; J2543; J7030 ×2; J2405; 81003; 81015; 87086

== ENCOUNTER 2024-06-14 10:02 | Inpatient (IN) | payer MEDICARE, OTHER ==
--- OUTSIDE RECORDS SUMMARY | 2024-06-14 10:12 | XMS REPORT | Continuity of Care Document ---
Author Name Unknown Address [address] [facility] [address] [place] [address] [facility] thconnect Address [address] [facility] [place] [address] Care Team Providers Care Charting Clerk Name Role Phone Nodal_J Attending Clinician Unavailable Michael_Carlos Attending Clinician Unavailable EMMETT ANDREW Attending Clinician Unavailabl e Nodal_J Admitting Clinician Unavailable Michael_Carlos Admitting Clinician Unavailable GINNY SMITH Admitting Clinician Unavailab le Payers Payer Name Policy Type Policy Number Effective Date Expirati on Date Source [facility] (MEDICARE REPLACEMENT HMO) [id number] 2020 00:00:00 Problems Condition Name Condition Details Condition Category Status Onset Date Resolution Date Last Treatment Date Treating Clinician Comments Source Esophageal thickening Esophageal thickening Disease Active 10-06 00:00: 00 [facility] Lymphadeno mandi, abdominal Lymphadeno mandi, abdominal Disease Active 10-06 00:00: 00 [facility] Fever of unknown origin (FUO) Fever of unknown origin (FUO) Disease Active 10-06 00:00: 00 [facility] Arthralgia of right hand Arthralgia of right hand Disease Active 10-06 00:00: 00 [facility] Allergies, Adverse Reactions, Alerts Allergy Name Allergy Type Status Severity Reaction(s) Onset Date Inactive Date Treating Clinician Comments Source No Known Allergie s DA Active U 09-25 00:00: 00 [facility] NO KNOWN ALLERGIE S Allergy Active [facility] Social History Social Habit Start Date Stop Date Quantity Comments Source Tobacco use and exposure 2018-10-15 00:00:00 2018-10-15 00:00:00 Former user [facility] Sex Assigned At 1950 00:00:00 1950 00:00:00 [facility] Smoking Status Start Date Stop Date Source Former smoker 2018-10-15 00:00:00 2018-10-15 00:00:00 [facility] Medications Ordered Medication Name Filled Medication Name Start Date Stop Date Current Medication? Ordering Clinician Indication Dosage Frequency Signature (SIG) Comments Components Source acetaminoph en (TYLENOL) 325 MG tablet 10-28 21:58: 09 Yes 650mg Take 650 mg by mouth every 6 (six) hours as needed for Pain. [facility] Encounters Start Date/Time End Date/Time Encounter Type Admission Type Attending Clinicians Care Facility Care Department Encounter ID Source 2022-04-03 11:42:10 2022-04-03 11:42:10 Outpatient [facility] [id number] [facility] 2021-12-17 11:06:00 2021-12-17 11:06:00 [place]odal[place] [facility] [place] [id number] 2021-12-17 00:00:00 2021-12-17 00:00:00 [place]patient [place]odal[place] [facility] [id number] 2021-12-13 07:13:00 2021-12-13 07:13:00 Outpatient Trevino[facility]M [facility] [id number] [facility] 2021-07-12 06:55:00 2021-07-12 06:55:00 [place] [facility] [place] [id number] Results Test Description Test Time Test Comments Results Result Co mments Source HEMOGLOBIN [id number] 03:35:35* Test Item Value Reference Range Interpretation Comme nts HEMOGLOBIN A1c (test code = 99499) 5.7 % 4.2-5.6 H LIPID [id number] 03:34:08* Test Item Value Reference Range Interpretation Comme nts CHOLESTEROL (test code = 2210) 213 MG/DL <200 H TRIGLYCERIDES (test code = 2232) 116 MG/DL <150 HDL CHOLESTEROL (test code = 2220) 45 MG/DL >39 CALC LDL CHOL (test code = 7) 145 MG/DL <100 H NOTE: CALCULATED LDL IS BASED ON PADMINI-BUITRAGO METHOD WHICHINCLUDES ADJUSTABLE TRIGLYCERIDE:VLDL CHOLESTEROL RATIO.THIS FACTOR VARIES BY MEASURED TRIGLYCERIDE AND NON-HDLCHOLESTEROL CONCENTRATIONS WITH INCREASED CALCULATED LDL SEENIN HIGHER TRIGLYCERIDE OR LOWER NON-HDL SPECIMENS. FOR MOREINFORMATION, SEE CLIENT ANNOUNCEMENT AT [email or web address] RISK RATIO LDL/HDL (test code = 2237) 3.22 RATIO <3.55 COMPREHENSIVE METABOLIC [id number] 03:34:08* Test Item Value Reference Range Interpretation Comme nts GLUCOSE (test code = 2216) 98 MG/DL 70-99 BUN (test code = 2207) 25 MG/DL 8-23 H CREATININE (test code = 2213) 1.29 MG/DL 0.80-1.40 eGFR (2020 CKD-EPI) (test code = 40031) 59 ML/MIN/1.73 >60 L CALC BUN/CREAT (test code = 2235) 19 RATIO 6-28 SODIUM (test code = 2230) 141 MEQ/L 133-146 POTASSIUM (test code = 2228) 4.4 MEQ/L 3.5-5.4 CHLORIDE (test code = 2215) 105 MEQ/L 95-107 CARBON DIOXIDE (test code = 2206) 21 MEQ/L 19-31 CALCIUM (test code = 220) 9.2 MG/DL 8.5-10.5 PROTEIN, TOTAL (test code = 2228) 6.9 G/DL 6.1-8.3 ALBUMIN (test code = 2200) 4.5 G/DL 3.5-5.2 CALC GLOBULIN (test code = 2240) 2.4 G/DL 1.9-3.7 CALC A/G RATIO (test code = 2234) 1.9 RATIO 1.0-2.6 BILIRUBIN, TOTAL (test code = 2207) 0.6 MG/DL See_Comment [Automated me ssage] The system which generated this result transmitted reference range: <=1.2. The reference range was not used to interpret this result as normal/abnormal. ALKALINE PHOSPHATASE (test code = 2204) 65 U/L 40-125 AST (test code = 2218) 13 U/L 9-50 ALT (test code = 2219) 15 U/L 5-50 HIV 1/2 4TH GEN, RFLX [id number] 03:18:56* Test Item Value Reference Range Interpretation Comme nts HIV 1/2 4TH GEN, RFLX CONF ( test code = 3514) NON-REACTIVE NON-REACTIVE HEPATITIS PANEL, [id number] 03:18:56* Test Item Value Reference Range Interpretation Comme nts HEPATITIS A IgM (test code = 25871) NON-REACTIVE NON-REACTIVE HEPATITIS B CORE IgM (test code = 4644) NON-REACTIVE NON-REACTIVE HEPATITIS B SURF AG (test code = 2739) NON-REACTIVE NON-REACTIVE HEPATITIS C ANTIBODY (test code = 4675) NON-REACTIVE NON-REACTIVE INTERPRETATION HEPATITIS A: (test code = 2552) (NOTE) Hepatitis A sero logy shows no evidence of acute hepatitis A. INTERPRETATION HEPATITIS B: (test code = 97346) (NOTE) Hepatitis B sero logy shows no evidence of acute hepatitis B andno indication of exposure to hepatitis B virus in the previous giancarlo eight months. INTERPRETATION HEPATITIS C: (test code = 27153) (NOTE) Hepatitis C sero logy shows no evidence of exposure to hepatitisC virus at this time. It can take up to 12 months after exposure tothe hepatitis C virus for antibodies to become detectable in the blood in certain patients. UNLESS OTHERWISE INDICATED, ALL TESTING PERFORMED [facility] [address] [place] [address] CERTIFIED SURGICAL FIRST ASSISTANT: SHELDON ALVAREZ M.D. CLIA NUMBER [id number] [facility] [place]. [id number] CBC W/AUTO DIFF WITH [id number] 02:35:43* Test Item Value Reference Range Interpretation Comme nts WBC (test code = 1001) 7.8 K/UL 3.5-11.0 RBC (test code = 1002) 5.33 M/UL 4.50-6.10 HEMOGLOBIN (test code = 1003) 15.1 G/DL 13.5-17.0 HEMATOCRIT (test code = 1004) 44.2 % 40.0-51.0 MCV (test code = 1005) 82.9 fL 80.0-99.0 MCH (test code = 1006) 28.3 PG 25.0-33.0 MCHC (test code = 1007) 34.2 G/DL 31.0-36.0 RDW (test code = 1038) 12.8 % 11.5-15.0 NEUTROPHILS (test code = 1008) 68.1 % LYMPHOCYTES (test code = 1010) 17.6 % MONOCYTES (test code = 1011) 7.7 % EOSINOPHILS (test code = 1012) 4.8 % BASOPHILS (test code = 1013) 1.3 % IMMATURE GRANULOCYTES (test code = 1036) 0.5 % NUCLEATED RBCS (test code = 1065) 0.0 /100 WBC'S See_Comment [Automated [employer]] The system which generated this result transmitted reference range: 0.0. The reference range was not used to interpret this result as normal/abnormal. PLATELET COUNT (test code = 1015) 272 K/UL 130-400 ABSOLUTE NEUTROPHILS (test code = 1066) 5.34 K/UL 1.50-7.50 ABSOLUTE LYMPHOCYTES (test code = 1067) 1.38 K/UL 1.00-4.00 ABSOLUTE MONOCYTES (test code = 1068) 0.60 K/UL 0.20-1.00 ABSOLUTE EOSINOPHILS (test code = 1040) 0.38 K/UL 0.00-0.50 ABSOLUTE BASOPHILS (test code = 1069) 0.10 K/UL 0.00-0.20 ABS IMMATURE GRANULOCYTES (test code = 1020) 0.04 K/UL 0.00-0.10 ABS NUCLEATED RBCS (test code = 67489) 0.00 K/UL 0.00-0.11 AFB CULTURE + [id number] 20:26:00* Test Item Value Reference Range Interpretation Comme nts CULTURE (BEAKER) (test code = 1095) A Same organism trevizo s been isolated from cultures(s) of the same body site collected on a prior date. Repeat identification and susceptibility testing performed only after consultation with the clinical microbiology laboratory.Refer to previous culture ofMycobacterium tuberculosis complex AFB SMEAR (BEAKER) (test code = 994) 1+ acid fast bacilli seen AFB CULTURE + [id number] 20:25:00* Test Item Value Reference Range Interpretation Comments CULTURE (BEAKER) (test code = 1095) MYCOBACTERIUM TUBERCULOSIS COMPLEX AA Mycobacterium tuberculosis complexIdentification and susceptibility performed by:[facility], [facility], [facility] [address] Isoniazid (test code = 61) S AFB SMEAR (BEAKER) (test code = 994) 1+ acid fast bacilli seen Organism Identified by [employer] [facility] MALDI-TOFThe [employer] MALDI-TOF is approved by the U.S. Food and Drug Administration (FDA). It's performance characteristics have been determined by the [facility].[employer] MS results should be interpreted in relation to the patient's clinical picture, other diagnostic findings, and epidemiological data.AFB CULTURE + [id number] 11:39:00* Test Item Value Reference Range Interpretation Comme nts CULTURE (BEAKER) (test code = 1095) No acid-fast bacilli isolated in 42 days AFB SMEAR (BEAKER) (test code = 994) No acid fast bacilli seen AFB CULTURE + [id number] 11:39:00* Test Item Value Reference Range Interpretation Comme nts CULTURE (BEAKER) (test code = 1095) No acid-fast bacilli isolated in 42 days AFB SMEAR (BEAKER) (test code = 994) No acid fast bacilli seen BLOOD CULTURE, AFB [id number] 11:28:00* Test Item Value Reference Range Interpretation Comme nts CULTURE (BEAKER) (test code = 1095) No acid-fast bacilli isolated in 42 days FUNGUS CULTURE + [id number] 18:55:00* Test Item Value Reference Range Interpretation Comme nts CULTURE (BEAKER) (test code = 1095) No fungus isolated in 28 days FUNGUS SMEAR (BEAKER) (test code = 1406) No fungi seen BRUCELLA [id number] 14:20:00* Test Item Value Reference Range Interpretation Comme nts CULTURE (BEAKER) (test code = 1095) No Brucella species isolated FUNGUS CULTURE, BLOOD (ISOLATOR)2018-10-29 08:09:00* Test Item Value Reference Range Interpretation Comme nts CULTURE (BEAKER) (test code = 1095) No fungus isolated BASIC METABOLIC [id number] 06:38:00* Test Item Value Reference Range Interpretation Comme nts SODIUM (BEAKER) (test code = 381) 130 meq/L 136-145 L POTASSIUM (BEAKER) (test code = 379) 4.3 meq/L 3.5-5.1 CHLORIDE (BEAKER) (test code = 382) 101 meq/L 98-107 CO2 (BEAKER) (test code = 355) 23 meq/L 22-29 BLOOD UREA NITROGEN (BEAKER) (test code = 354) 15 mg/dL 7-21 CREATININE (BEAKER) (test code = 358) 0.63 mg/dL 0.57-1.25 GLUCOSE RANDOM (BEAKER) (test code = 652) 96 mg/dL 70-105 CALCIUM (BEAKER) (test code = 697) 7.7 mg/dL 8.4-10.2 L EGFR (BEAKER) (test code = 1092) 126 mL/min/1.73 sq m ESTIMATED GFR IS NOT ACCURATE CREATININE CLEARANCE IN PREDICTING GLOMERULAR FILTRATION RATE. ESTIMATED GFR IS NOT APPLICABLE FOR DIALYSIS PATIENTS. HEPATIC FUNCTION [id number] 06:35:00* Test Item Value Reference Range Interpretation Comme nts TOTAL PROTEIN (BEAKER) (test code = 770) 4.9 gm/dL 6.0-8.3 L ALBUMIN (BEAKER) (test code = 1145) 2.3 g/dL 3.5-5.0 L BILIRUBIN TOTAL (BEAKER) (te st code = 377) 0.5 mg/dL 0.2-1.2 BILIRUBIN DIRECT (BEAKER) (t est code = 706) 0.3 mg/dL 0.1-0.5 ALKALINE PHOSPHATASE (BEAKER ) (test code = 346) 210 U/L 40-150 H AST (SGOT) (BEAKER) (test co de = 353) 22 U/L 5-34 ALT (SGPT) (BEAKER) (test co de = 347) 53 U/L 6-55 CBC W/PLT COUNT & AUTO [id number] 06:19:00* Test Item Value Reference Range Interpretation Comme nts WHITE BLOOD CELL COUNT (BEAK ER) (test code = 775) 5.2 K/ L 3.5-10.5 RED BLOOD CELL COUNT (BEAKER ) (test code = 761) 3.63 M/ L 4.63-6.08 L HEMOGLOBIN (BEAKER) (test co de = 410) 9.6 GM/DL 13.7-17.5 L HEMATOCRIT (BEAKER) (test co de = 411) 31.7 % 40.1-51.0 L MEAN CORPUSCULAR VOLUME (BAO KER) (test code = 753) 87.3 fL 79.0-92.2 MEAN CORPUSCULAR HEMOGLOBIN (BEAKER) (test code = 751) 26.4 pg 25.7-32.2 MEAN CORPUSCULAR HEMOGLOBIN CONC (BEAKER) (test code = 752) 30.3 GM/DL 32.3-36.5 L RED CELL DISTRIBUTION WIDTH (BEAKER) (test code = 412) 14.3 % 11.6-14.4 PLATELET COUNT (BEAKER) (shaunna t code = 756) 314 K/CU MM 150-450 MEAN PLATELET VOLUME (BEAKER ) (test code = 754) 8.9 fL 9.4-12.4 L NUCLEATED RED BLOOD CELLS (BEAKER) (test code = 413) 0 /100 WBC 0-0 NEUTROPHILS RELATIVE PERCENT (BEAKER) (test code = 429) 66 % LYMPHOCYTES RELATIVE PERCENT (BEAKER) (test code = 430) 18 % MONOCYTES RELATIVE PERCENT (BEAKER) (test code = 431) 10 % EOSINOPHILS RELATIVE PERCENT (BEAKER) (test code = 432) 1 % BASOPHILS RELATIVE PERCENT (BEAKER) (test code = 437) 1 % NEUTROPHILS ABSOLUTE COUNT (BEAKER) (test code = 670) 3.41 K/ L 1.78-5.38 LYMPHOCYTES ABSOLUTE COUNT (BEAKER) (test code = 414) 0.93 K/ L 1.32-3.57 L MONOCYTES ABSOLUTE COUNT (BE IVA) (test code = 415) 0.54 K/ L 0.30-0.82 EOSINOPHILS ABSOLUTE COUNT (BEAKER) (test code = 416) 0.03 K/ L 0.04-0.54 L BASOPHILS ABSOLUTE COUNT (BE IVA) (test code = 417) 0.05 K/ L 0.01-0.08 IMMATURE GRANULOCYTES-RELATI VE PERCENT (BEAKER) (test code = 2801) 4 % 0-1 H HEPATITIS PANEL, [id number] 04:47:00* Test Item Value Reference Range Interpretation Comme nts HEPATITIS A IGM ANTIBODY (BE IVA) (test code = 498) Nonreactive Nonreactive HEPATITIS B CORE IGM ANTIBOD Y (BEAKER) (test code = 645) Nonreactive Nonreactive HEPATITIS C ANTIBODY (BEAKER ) (test code = 367) Nonreactive Nonreactive HEPATITIS B SURFACE ANTIGEN (2) (BEAKER) (test code = 2585) Nonreactive Nonreactive HEPATIC FUNCTION [id number] 04:25:00* Test Item Value Reference Range Interpretation Comme nts TOTAL PROTEIN (BEAKER) (test code = 770) 4.9 gm/dL 6.0-8.3 L ALBUMIN (BEAKER) (test code = 1145) 2.3 g/dL 3.5-5.0 L BILIRUBIN TOTAL (BEAKER) (te st code = 377) 0.6 mg/dL 0.2-1.2 BILIRUBIN DIRECT (BEAKER) (t est code = 706) 0.3 mg/dL 0.1-0.5 ALKALINE PHOSPHATASE (BEAKER ) (test code = 346) 243 U/L 40-150 H AST (SGOT) (BEAKER) (test co de = 353) 27 U/L 5-34 ALT (SGPT) (BEAKER) (test co de = 347) 62 U/L 6-55 H MISCELLANEOUS LAB [id number] 20:55:00* Test Item Value Reference Range Interpretation Comme nts SCAN RESULT (test code = 7501101) MTB DNA Detected SPIN/CONCENTRATION [id number] 16:12:00* Test Item Value Reference Range Interpretation Comme nts CONCENTRATION CHARGED (BEAKE R) (test code = 2657) Done SPIN/CONCENTRATION [id number] 11:59:00* Test Item Value Reference Range Interpretation Comme nts CONCENTRATION CHARGED (BEAKE R) (test code = 2657) Done CBC W/PLT COUNT & AUTO [id number] 11:32:00* Test Item Value Reference Range Interpretation Comme nts WHITE BLOOD CELL COUNT (BEAK ER) (test code = 775) 7.0 K/ L 3.5-10.5 RED BLOOD CELL COUNT (BEAKER ) (test code = 761) 3.49 M/ L 4.63-6.08 L HEMOGLOBIN (BEAKER) (test co de = 410) 9.4 GM/DL 13.7-17.5 L HEMATOCRIT (BEAKER) (test co de = 411) 29.9 % 40.1-51.0 L MEAN CORPUSCULAR VOLUME (BAO KER) (test code = 753) 85.7 fL 79.0-92.2 MEAN CORPUSCULAR HEMOGLOBIN (BEAKER) (test code = 751) 26.9 pg 25.7-32.2 MEAN CORPUSCULAR HEMOGLOBIN CONC (BEAKER) (test code = 752) 31.4 GM/DL 32.3-36.5 L RED CELL DISTRIBUTION WIDTH (BEAKER) (test code = 412) 14.2 % 11.6-14.4 PLATELET COUNT (BEAKER) (shaunna t code = 756) 271 K/CU MM 150-450 MEAN PLATELET VOLUME (BEAKER ) (test code = 754) 9.2 fL 9.4-12.4 L NUCLEATED RED BLOOD CELLS (BEAKER) (test code = 413) 0 /100 WBC 0-0 (CELLAVISION MANUAL DIFF)2018-10-26 11:32:00* Test Item Value Reference Range Interpretation Comme nts NEUTROPHILS - REL (CELLAVISION)(BEAKER) (test code = 2816) 85 % LYMPHOCYTES - REL (CELLAVISION)(BEAKER) (test code = 2817) 7 % MONOCYTES - REL (CELLAVISION)(BEAKER) (test code = 2818) 6 % EOSINOPHILS - REL (CELLAVISION)(BEAKER) (test code = 2819) 1 % MYELOCYTES - REL (CELLAVISION)(BEAKER) (test code = 2822) 1 % 0-0 H NEUTROPHILS - ABS (CELLAVISION)(BEAKER) (test code = 2830) 5.95 K/ul 1.78-5.38 H LYMPHOCYTES - ABS (CELLAVISION)(BEAKER) (test code = 2831) 0.49 K/ul 1.32-3.57 L MONOCYTES - ABS (CELLAVISION)(BEAKER) (test code = 2832) 0.42 K/uL 0.30-0.82 EOSINOPHILS - ABS (CELLAVISION)(BEAKER) (test code = 2834) 0.07 K/uL 0.04-0.54 MYELOCYTES-ABS (CELLAVISION)(BEAKER) (test code = 2837) 0.07 K/uL 0.00-0.00 H TOTAL COUNTED (BEAKER) (test code = 1351) 100 WBC MORPHOLOGY (BEAKER) (shaunna t code = 487) Normal PLT MORPHOLOGY (BEAKER) (shaunna t code = 486) Normal ANISOCYTOSIS (BEAKER) (test code = 961) 1+ few MICROCYTES (BEAKER) (test co de = 965) 1+ few ARTIFACT (CELLAVISION)(BEAKE R) (test code = 3432) Present PLATELET CONCENTRATION (CELLAVISION)(BEAKER) (test code = 3438) Adequate Received comment: User comments: Slide comments:BASIC METABOLIC [id number] 06:42:00* Test Item Value Reference Range Interpretation Comme nts SODIUM (BEAKER) (test code = 381) 131 meq/L 136-145 L POTASSIUM (BEAKER) (test code = 379) 4.4 meq/L 3.5-5.1 CHLORIDE (BEAKER) (test code = 382) 101 meq/L 98-107 CO2 (BEAKER) (test code = 355) 21 meq/L 22-29 L BLOOD UREA NITROGEN (BEAKER) (test code = 354) 19 mg/dL 7-21 CREATININE (BEAKER) (test code = 358) 0.69 mg/dL 0.57-1.25 GLUCOSE RANDOM (BEAKER) (test code = 652) 88 mg/dL 70-105 CALCIUM (BEAKER) (test code = 697) 7.9 mg/dL 8.4-10.2 L EGFR (BEAKER) (test code = 1092) 114 mL/min/1.73 sq m ESTIMATED GFR IS NOT ACCURATE CREATININE CLEARANCE IN PREDICTING GLOMERULAR FILTRATION RATE. ESTIMATED GFR IS NOT APPLICABLE FOR DIALYSIS PATIENTS. [id number] 06:37:00* Test Item Value Reference Range Interpretation Comme nts MAGNESIUM (BEAKER) (test cod e = 627) 1.7 mg/dL 1.6-2.6 BASIC METABOLIC [id number] 07:43:00* Test Item Value Reference Range Interpretation Comme nts SODIUM (BEAKER) (test code = 381) 130 meq/L 136-145 L POTASSIUM (BEAKER) (test code = 379) 4.3 meq/L 3.5-5.1 CHLORIDE (BEAKER) (test code = 382) 101 meq/L 98-107 CO2 (BEAKER) (test code = 355) 23 meq/L 22-29 BLOOD UREA NITROGEN (BEAKER) (test code = 354) 20 mg/dL 7-21 CREATININE (BEAKER) (test code = 358) 0.61 mg/dL 0.57-1.25 GLUCOSE RANDOM (BEAKER) (test code = 652) 96 mg/dL 70-105 CALCIUM (BEAKER) (test code = 697) 7.8 mg/dL 8.4-10.2 L EGFR (BEAKER) (test code = 1092) 131 mL/min/1.73 sq m ESTIMATED GFR IS NOT ACCURATE CREATININE CLEARANCE IN PREDICTING GLOMERULAR FILTRATION RATE. ESTIMATED GFR IS NOT APPLICABLE FOR DIALYSIS PATIENTS. [id number] 07:38:00* Test Item Value Reference Range Interpretation Comme nts MAGNESIUM (BEAKER) (test cod e = 627) 1.6 mg/dL 1.6-2.6 HEPATIC FUNCTION [id number] 07:38:00* Test Item Value Reference Range Interpretation Comme nts TOTAL PROTEIN (BEAKER) (test code = 770) 4.7 gm/dL 6.0-8.3 L ALBUMIN (BEAKER) (test code = 1145) 2.2 g/dL 3.5-5.0 L BILIRUBIN TOTAL (BEAKER) (te st code = 377) 0.5 mg/dL 0.2-1.2 BILIRUBIN DIRECT (BEAKER) (t est code = 706) 0.3 mg/dL 0.1-0.5 ALKALINE PHOSPHATASE (BEAKER ) (test code = 346) 263 U/L 40-150 H AST (SGOT) (BEAKER) (test co de = 353) 72 U/L 5-34 H ALT (SGPT) (BEAKER) (test co de = 347) 103 U/L 6-55 H CBC W/PLT COUNT & AUTO [id number] 07:09:00* Test Item Value Reference Range Interpretation Comme nts WHITE BLOOD CELL COUNT (BEAK ER) (test code = 775) 7.7 K/ L 3.5-10.5 RED BLOOD CELL COUNT (BEAKER ) (test code = 761) 3.54 M/ L 4.63-6.08 L HEMOGLOBIN (BEAKER) (test co de = 410) 9.3 GM/DL 13.7-17.5 L HEMATOCRIT (BEAKER) (test co de = 411) 30.1 % 40.1-51.0 L MEAN CORPUSCULAR VOLUME (BAO KER) (test code = 753) 85.0 fL 79.0-92.2 MEAN CORPUSCULAR HEMOGLOBIN (BEAKER) (test code = 751) 26.3 pg 25.7-32.2 MEAN CORPUSCULAR HEMOGLOBIN CONC (BEAKER) (test code = 752) 30.9 GM/DL 32.3-36.5 L RED CELL DISTRIBUTION WIDTH (BEAKER) (test code = 412) 13.8 % 11.6-14.4 PLATELET COUNT (BEAKER) (shaunna t code = 756) 247 K/CU MM 150-450 MEAN PLATELET VOLUME (BEAKER ) (test code = 754) 9.5 fL 9.4-12.4 NUCLEATED RED BLOOD CELLS (BEAKER) (test code = 413) 0 /100 WBC 0-0 NEUTROPHILS RELATIVE PERCENT (BEAKER) (test code = 429) 71 % LYMPHOCYTES RELATIVE PERCENT (BEAKER) (test code = 430) 15 % MONOCYTES RELATIVE PERCENT (BEAKER) (test code = 431) 8 % EOSINOPHILS RELATIVE PERCENT (BEAKER) (test code = 432) 1 % BASOPHILS RELATIVE PERCENT (BEAKER) (test code = 437) 1 % NEUTROPHILS ABSOLUTE COUNT (BEAKER) (test code = 670) 5.47 K/ L 1.78-5.38 H LYMPHOCYTES ABSOLUTE COUNT (BEAKER) (test code = 414) 1.12 K/ L 1.32-3.57 L MONOCYTES ABSOLUTE COUNT (BE IVA) (test code = 415) 0.63 K/ L 0.30-0.82 EOSINOPHILS ABSOLUTE COUNT (BEAKER) (test code = 416) 0.05 K/ L 0.04-0.54 BASOPHILS ABSOLUTE COUNT (BE IVA) (test code = 417) 0.06 K/ L 0.01-0.08 IMMATURE GRANULOCYTES-RELATI VE PERCENT (BEAKER) (test code = 2801) 4 % 0-1 H BLOOD [id number] 02:00:00* Test Item Value Reference Range Interpretation Comme nts CULTURE (BEAKER) (test code = 1095) No growth in 5 days SPIN/CONCENTRATION [id number] 12:34:00* Test Item Value Reference Range Interpretation Comme nts CONCENTRATION CHARGED (BEAKE R) (test code = 2657) Done HEPATIC FUNCTION [id number] 10:54:00* Test Item Value Reference Range Interpretation Comme nts TOTAL PROTEIN (BEAKER) (test code = 770) 5.8 gm/dL 6.0-8.3 L Specimen sligh tly hemolyzed ALBUMIN (BEAKER) (test code = 1145) 2.6 g/dL 3.5-5.0 L Specimen slightl y hemolyzed BILIRUBIN TOTAL (BEAKER) (test code = 377) 1.0 mg/dL 0.2-1.2 Specimen slightl y hemolyzed BILIRUBIN DIRECT (BEAKER) (test code = 706) 0.7 mg/dL 0.1-0.5 H Specimen slightl y hemolyzed ALKALINE PHOSPHATASE (BEAKER) (test code = 346) 322 U/L 40-150 H AST (SGOT) (BEAKER) (test code = 353) 94 U/L 5-34 H Specimen sligh tly hemolyzed ALT (SGPT) (BEAKER) (test code = 347) 119 U/L 6-55 H Specimen sligh tly hemolyzed CBC W/PLT COUNT & AUTO [id number] 08:50:00* Test Item Value Reference Range Interpretation Comme nts WHITE BLOOD CELL COUNT (BEAK ER) (test code = 775) 8.8 K/ L 3.5-10.5 RED BLOOD CELL COUNT (BEAKER ) (test code = 761) 3.75 M/ L 4.63-6.08 L HEMOGLOBIN (BEAKER) (test co de = 410) 10.1 GM/DL 13.7-17.5 L HEMATOCRIT (BEAKER) (test co de = 411) 31.4 % 40.1-51.0 L MEAN CORPUSCULAR VOLUME (BAO KER) (test code = 753) 83.7 fL 79.0-92.2 MEAN CORPUSCULAR HEMOGLOBIN (BEAKER) (test code = 751) 26.9 pg 25.7-32.2 MEAN CORPUSCULAR HEMOGLOBIN CONC (BEAKER) (test code = 752) 32.2 GM/DL 32.3-36.5 L RED CELL DISTRIBUTION WIDTH (BEAKER) (test code = 412) 14.3 % 11.6-14.4 PLATELET COUNT (BEAKER) (shaunna t code = 756) 270 K/CU MM 150-450 MEAN PLATELET VOLUME (BEAKER ) (test code = 754) 10.3 fL 9.4-12.4 NUCLEATED RED BLOOD CELLS (BEAKER) (test code = 413) 0 /100 WBC 0-0 NEUTROPHILS RELATIVE PERCENT (BEAKER) (test code = 429) 81 % LYMPHOCYTES RELATIVE PERCENT (BEAKER) (test code = 430) 9 % MONOCYTES RELATIVE PERCENT (BEAKER) (test code = 431) 6 % EOSINOPHILS RELATIVE PERCENT (BEAKER) (test code = 432) 1 % BASOPHILS RELATIVE PERCENT (BEAKER) (test code = 437) 1 % NEUTROPHILS ABSOLUTE COUNT (BEAKER) (test code = 670) 7.12 K/ L 1.78-5.38 H LYMPHOCYTES ABSOLUTE COUNT (BEAKER) (test code = 414) 0.79 K/ L 1.32-3.57 L MONOCYTES ABSOLUTE COUNT (BE IVA) (test code = 415) 0.56 K/ L 0.30-0.82 EOSINOPHILS ABSOLUTE COUNT (BEAKER) (test code = 416) 0.04 K/ L 0.04-0.54 BASOPHILS ABSOLUTE COUNT (BE IVA) (test code = 417) 0.04 K/ L 0.01-0.08 IMMATURE GRANULOCYTES-RELATI VE PERCENT (BEAKER) (test code = 2801) 3 % 0-1 H [id number] 02:38:00* Test Item Value Reference Range Interpretation Comme nts MAGNESIUM (BEAKER) (test cod e = 627) 1.7 mg/dL 1.6-2.6 BASIC METABOLIC [id number] 02:38:00* Test Item Value Reference Range Interpretation Comme nts SODIUM (BEAKER) (test code = 381) 131 meq/L 136-145 L POTASSIUM (BEAKER) (test code = 379) 4.5 meq/L 3.5-5.1 CHLORIDE (BEAKER) (test code = 382) 98 meq/L 98-107 CO2 (BEAKER) (test code = 355) 26 meq/L 22-29 BLOOD UREA NITROGEN (BEAKER) (test code = 354) 26 mg/dL 7-21 H CREATININE (BEAKER) (test code = 358) 0.65 mg/dL 0.57-1.25 GLUCOSE RANDOM (BEAKER) (test code = 652) 98 mg/dL 70-105 CALCIUM (BEAKER) (test code = 697) 8.0 mg/dL 8.4-10.2 L EGFR (BEAKER) (test code = 1092) 122 mL/min/1.73 sq m ESTIMATED GFR IS NOT ACCURATE CREATININE CLEARANCE IN PREDICTING GLOMERULAR FILTRATION RATE. ESTIMATED GFR IS NOT APPLICABLE FOR DIALYSIS PATIENTS. [id number] 07:10:00* Test Item Value Reference Range Interpretation Comme nts MAGNESIUM (BEAKER) (test cod e = 627) 1.7 mg/dL 1.6-2.6 BASIC METABOLIC [id number] 07:10:00* Test Item Value Reference Range Interpretation Comme nts SODIUM (BEAKER) (test code = 381) 129 meq/L 136-145 L POTASSIUM (BEAKER) (test code = 379) 4.3 meq/L 3.5-5.1 CHLORIDE (BEAKER) (test code = 382) 99 meq/L 98-107 CO2 (BEAKER) (test code = 355) 23 meq/L 22-29 BLOOD UREA NITROGEN (BEAKER) (test code = 354) 25 mg/dL 7-21 H CREATININE (BEAKER) (test code = 358) 0.62 mg/dL 0.57-1.25 GLUCOSE RANDOM (BEAKER) (test code = 652) 97 mg/dL 70-105 CALCIUM (BEAKER) (test code = 697) 8.0 mg/dL 8.4-10.2 L EGFR (BEAKER) (test code = 1092) 129 mL/min/1.73 sq m ESTIMATED GFR IS NOT ACCURATE CREATININE CLEARANCE IN PREDICTING GLOMERULAR FILTRATION RATE. ESTIMATED GFR IS NOT APPLICABLE FOR DIALYSIS PATIENTS. CBC W/PLT COUNT & AUTO [id number] 07:08:00* Test Item Value Reference Range Interpretation Comme nts WHITE BLOOD CELL COUNT (BEAK ER) (test code = 775) 11.1 K/ L 3.5-10.5 H RED BLOOD CELL COUNT (BEAKER ) (test code = 761) 3.72 M/ L 4.63-6.08 L HEMOGLOBIN (BEAKER) (test co de = 410) 10.0 GM/DL 13.7-17.5 L HEMATOCRIT (BEAKER) (test co de = 411) 31.1 % 40.1-51.0 L MEAN CORPUSCULAR VOLUME (BAO KER) (test code = 753) 83.6 fL 79.0-92.2 MEAN CORPUSCULAR HEMOGLOBIN (BEAKER) (test code = 751) 26.9 pg 25.7-32.2 MEAN CORPUSCULAR HEMOGLOBIN CONC (BEAKER) (test code = 752) 32.2 GM/DL 32.3-36.5 L RED CELL DISTRIBUTION WIDTH (BEAKER) (test code = 412) 14.0 % 11.6-14.4 PLATELET COUNT (BEAKER) (shaunna t code = 756) 238 K/CU MM 150-450 MEAN PLATELET VOLUME (BEAKER ) (test code = 754) 9.8 fL 9.4-12.4 NUCLEATED RED BLOOD CELLS (BEAKER) (test code = 413) 0 /100 WBC 0-0 NEUTROPHILS RELATIVE PERCENT (BEAKER) (test code = 429) 82 % LYMPHOCYTES RELATIVE PERCENT (BEAKER) (test code = 430) 9 % MONOCYTES RELATIVE PERCENT (BEAKER) (test code = 431) 6 % EOSINOPHILS RELATIVE PERCENT (BEAKER) (test code = 432) 1 % BASOPHILS RELATIVE PERCENT (BEAKER) (test code = 437) 0 % NEUTROPHILS ABSOLUTE COUNT (BEAKER) (test code = 670) 9.10 K/ L 1.78-5.38 H LYMPHOCYTES ABSOLUTE COUNT (BEAKER) (test code = 414) 0.97 K/ L 1.32-3.57 L MONOCYTES ABSOLUTE COUNT (BE IVA) (test code = 415) 0.70 K/ L 0.30-0.82 EOSINOPHILS ABSOLUTE COUNT (BEAKER) (test code = 416) 0.06 K/ L 0.04-0.54 BASOPHILS ABSOLUTE COUNT (BE IVA) (test code = 417) 0.05 K/ L 0.01-0.08 IMMATURE GRANULOCYTES-RELATI VE PERCENT (BEAKER) (test code = 2801) 2 % 0-1 H SPIN/CONCENTRATION [id number] 14:01:00* Test Item Value Reference Range Interpretation Comme nts CONCENTRATION CHARGED (BEAKE R) (test code = 2657) Done BASIC METABOLIC [id number] 05:22:00* Test Item Value Reference Range Interpretation Comme nts SODIUM (BEAKER) (test code = 381) 128 meq/L 136-145 L POTASSIUM (BEAKER) (test code = 379) 4.0 meq/L 3.5-5.1 CHLORIDE (BEAKER) (test code = 382) 98 meq/L 98-107 CO2 (BEAKER) (test code = 355) 22 meq/L 22-29 BLOOD UREA NITROGEN (BEAKER) (test code = 354) 30 mg/dL 7-21 H CREATININE (BEAKER) (test code = 358) 0.71 mg/dL 0.57-1.25 GLUCOSE RANDOM (BEAKER) (test code = 652) 103 mg/dL 70-105 CALCIUM (BEAKER) (test code = 697) 7.9 mg/dL 8.4-10.2 L EGFR (BEAKER) (test code = 1092) 110 mL/min/1.73 sq m ESTIMATED GFR IS NOT ACCURATE CREATININE CLEARANCE IN PREDICTING GLOMERULAR FILTRATION RATE. ESTIMATED GFR IS NOT APPLICABLE FOR DIALYSIS PATIENTS. [id number] 05:18:00* Test Item Value Reference Range Interpretation Comme nts MAGNESIUM (BEAKER) (test cod e = 627) 1.6 mg/dL 1.6-2.6 CBC W/PLT COUNT & AUTO [id number] 05:10:00* Test Item Value Reference Range Interpretation Comme nts WHITE BLOOD CELL COUNT (BEAK ER) (test code = 775) 12.8 K/ L 3.5-10.5 H RED BLOOD CELL COUNT (BEAKER ) (test code = 761) 3.58 M/ L 4.63-6.08 L HEMOGLOBIN (BEAKER) (test co de = 410) 9.6 GM/DL 13.7-17.5 L HEMATOCRIT (BEAKER) (test co de = 411) 29.2 % 40.1-51.0 L MEAN CORPUSCULAR VOLUME (BAO KER) (test code = 753) 81.6 fL 79.0-92.2 MEAN CORPUSCULAR HEMOGLOBIN (BEAKER) (test code = 751) 26.8 pg 25.7-32.2 MEAN CORPUSCULAR HEMOGLOBIN CONC (BEAKER) (test code = 752) 32.9 GM/DL 32.3-36.5 RED CELL DISTRIBUTION WIDTH (BEAKER) (test code = 412) 13.9 % 11.6-14.4 PLATELET COUNT (BEAKER) (shaunna t code = 756) 229 K/CU MM 150-450 MEAN PLATELET VOLUME (BEAKER ) (test code = 754) 9.7 fL 9.4-12.4 NUCLEATED RED BLOOD CELLS (BEAKER) (test code = 413) 0 /100 WBC 0-0 NEUTROPHILS RELATIVE PERCENT (BEAKER) (test code = 429) 88 % LYMPHOCYTES RELATIVE PERCENT (BEAKER) (test code = 430) 6 % MONOCYTES RELATIVE PERCENT (BEAKER) (test code = 431) 5 % EOSINOPHILS RELATIVE PERCENT (BEAKER) (test code = 432) 0 % BASOPHILS RELATIVE PERCENT (BEAKER) (test code = 437) 0 % NEUTROPHILS ABSOLUTE COUNT (BEAKER) (test code = 670) 11.18 K/ L 1.78-5.38 H LYMPHOCYTES ABSOLUTE COUNT (BEAKER) (test code = 414) 0.76 K/ L 1.32-3.57 L MONOCYTES ABSOLUTE COUNT (BE IVA) (test code = 415) 0.57 K/ L 0.30-0.82 EOSINOPHILS ABSOLUTE COUNT (BEAKER) (test code = 416) 0.05 K/ L 0.04-0.54 BASOPHILS ABSOLUTE COUNT (BE IVA) (test code = 417) 0.03 K/ L 0.01-0.08 IMMATURE GRANULOCYTES-RELATI VE PERCENT (BEAKER) (test code = 2801) 1 % 0-1 TISSUE [id number] 17:07:00Surgical Pathology Report Case: [id number] Authorizing Provider: Estrella Pena Collected: 10/15/2018 1450 MD Grant Ordering Location: [address] Received: 10/18/2018 0808 Service Pathologist: Bassam Wiley MD Specimens: A) - Small Bowel, NOS, biopsy B) - Ulcer, esophageal ulcer C) - Biopsy, Mid-esophagus, BIOPSY NODULAR AREA Special stains for acid fast bacilli (AFB and NICKY stains) performed on blocks B1 and C1 (esophageal ulcer and mid esophageal nodular area respectively) are POSITIVE FOR ACID FAST BACILLI. Special stain for fungal organism (GMS) performed on block C1 is negative.This result was reported to Drs. Lucina Burns and Karen Gasca on 10/21/2018. Addendum electronically signed by Bassam Wiley MD on 10/21/2018 at 5:07 PMPART A SMALL INTESTINE, BIOPSY:SMALL INTESTINAL MUCOSA WITH FOCAL ACTIVE INFLAMMATION AND AREAS OF GASTRIC METAPLASIA.THE VILLOUS ARCHITECTURE IS PREDOMINANTLY PRESERVED.NO GRANULOMAS, DYSPLASIA, OR INVASIVE CARCINOMASEEN.PART B ESOPHAGEAL ULCER BIOPSY:SEVERE ACTIVE ESOPHAGITIS WITH ULCERATION.NEGATIVE FOR DYSPLASIA OR INVASIVE CARCINOMA.SPECIAL STAINS FOR FUNGAL ORGANISMS (GMS, PAS) ARE NEGATIVE.IMMUNOSTAINS FORCMV, HSV1, AND HSV2 ARE NEGATIVE.PART C MID-ESOPHAGEAL BIOPSY:SEVERE ACTIVE ESOPHAGITIS WITH ULCERATION.NEGATIVE FOR DYSPLASIA OR INVASIVE CARCINOMA.IMMUNOSTAINS FOR CMV, HSV1, AND HSV2 ARE NEGATIVE.Signing Pathologist Direct Phone Line: [phone] signed by Bassam Wiley MD on 10/20/2018 at 3:02 PMImmunohistochemical studies for cam 5.2 performed on blocks B1 and C1 arepositive in the normal epithelial layer. Immunostains for CD20 and CD3 performed on block B1 demonstrate a polymorphous mixture of B and T cells. Special stain for fungal organisms is pending for part C, an addendum report will follow. There is no morphologic evidence of malignancy in any of the biopsy specimens in this case. Intradepartmental consultation: Dr. Lal [id number], [id number], [id number], [id number]: EGD with EUSPre and postop diagnosis: abnormal findings of gastrointestinal tract.A. Small bowel, NOS biopsy; B. Esophageal ulcer; C. Mid esophagus biopsy, nodular areaThe specimen is received in three parts labeled with the patient's name (Manjit Delong) and accession number [id number] which corresponds to the accompanying requisition. Specimen A is received in a biohazard bag in a specimen container and in formalin labeled "small bowel, NOS" and consists of three irregular fr agments of fajardo tissue measuring 0.4 x 0.3 x 0.1 cm in aggregate which are submitted in toto in one cassette. Specimen B is received in the same biohazard bag in a specimen container and in formalin labeled "ulcer" and consists of multiple irregular fragments of fajardo-white tissue measuring 0.6 x 0.5 x 0.1 cm in aggregate which are submitted in toto in one cassette. Specimen C is .received in the same biohazard bag in a specimen container and in formalin labeled "biopsy mid esophagus" and consistsof two irregular fragments of fajardo tissue measuring 0.5 x 0.3 x 0.1 cm in aggregate which are submitted in toto in one cassette. AG/pl Performed. The interpretation of this case included the use of immunohistochemistry or special stains.BLOCK B1- PAS, GMS, CMV, HSV1, HSV2, CMV, CAM 5.2, CD20, [id number] C1- CAM 5.2, HSV1, HSV2, CMV, GMSControl Slides Examined: In-house known positive controls were evaluated along with the test tissue. These control slides run alongside of the patients sample show a ppropriate staining. Internal positive and negative controls when available are evaluated Immunohistochemistry technical testing was performed at [facility], Pathology Laboratory where it was developed and its performance characteristics were determined. It has not been cleared or approved by the U.S. Food and Drug Administration. The FDA has determined that such clearance or approval is not necessary. The test is used for clinical purposes. It should not be regarded as investigational or for research. This laboratory is certified under the Clinical Laboratory Improvement Amendments of 1988 (CLIA-88) as qualified to perform high complexity clinical laboratory testing.CBC W/PLT COUNT & AUTO [id number] 05:01:00* Test Item Value Reference Range Interpretation Comme nts WHITE BLOOD CELL COUNT (BEAK ER) (test code = 775) 14.8 K/ L 3.5-10.5 H RED BLOOD CELL COUNT (BEAKER ) (test code = 761) 3.64 M/ L 4.63-6.08 L HEMOGLOBIN (BEAKER) (test co de = 410) 9.7 GM/DL 13.7-17.5 L HEMATOCRIT (BEAKER) (test co de = 411) 30.2 % 40.1-51.0 L MEAN CORPUSCULAR VOLUME (BAO KER) (test code = 753) 83.0 fL 79.0-92.2 MEAN CORPUSCULAR HEMOGLOBIN (BEAKER) (test code = 751) 26.6 pg 25.7-32.2 MEAN CORPUSCULAR HEMOGLOBIN CONC (BEAKER) (test code = 752) 32.1 GM/DL 32.3-36.5 L RED CELL DISTRIBUTION WIDTH (BEAKER) (test code = 412) 13.9 % 11.6-14.4 PLATELET COUNT (BEAKER) (shaunna t code = 756) 226 K/CU MM 150-450 MEAN PLATELET VOLUME (BEAKER ) (test code = 754) 9.7 fL 9.4-12.4 NUCLEATED RED BLOOD CELLS (BEAKER) (test code = 413) 0 /100 WBC 0-0 NEUTROPHILS RELATIVE PERCENT (BEAKER) (test code = 429) 91 % LYMPHOCYTES RELATIVE PERCENT (BEAKER) (test code = 430) 5 % MONOCYTES RELATIVE PERCENT (BEAKER) (test code = 431) 3 % EOSINOPHILS RELATIVE PERCENT (BEAKER) (test code = 432) 0 % BASOPHILS RELATIVE PERCENT (BEAKER) (test code = 437) 0 % NEUTROPHILS ABSOLUTE COUNT (BEAKER) (test code = 670) 13.44 K/ L 1.78-5.38 H LYMPHOCYTES ABSOLUTE COUNT (BEAKER) (test code = 414) 0.69 K/ L 1.32-3.57 L MONOCYTES ABSOLUTE COUNT (BE IVA) (test code = 415) 0.45 K/ L 0.30-0.82 EOSINOPHILS ABSOLUTE COUNT (BEAKER) (test code = 416) 0.00 K/ L 0.04-0.54 L BASOPHILS ABSOLUTE COUNT (BE IVA) (test code = 417) 0.04 K/ L 0.01-0.08 IMMATURE GRANULOCYTES-RELATI VE PERCENT (BEAKER) (test code = 2801) 1 % 0-1 CBC W/PLT COUNT & AUTO [id number] 06:09:00* Test Item Value Reference Range Interpretation Comme nts WHITE BLOOD CELL COUNT (BEAK ER) (test code = 775) 16.9 K/ L 3.5-10.5 H RED BLOOD CELL COUNT (BEAKER ) (test code = 761) 3.90 M/ L 4.63-6.08 L HEMOGLOBIN (BEAKER) (test co de = 410) 10.4 GM/DL 13.7-17.5 L HEMATOCRIT (BEAKER) (test co de = 411) 32.3 % 40.1-51.0 L MEAN CORPUSCULAR VOLUME (BAO KER) (test code = 753) 82.8 fL 79.0-92.2 MEAN CORPUSCULAR HEMOGLOBIN (BEAKER) (test code = 751) 26.7 pg 25.7-32.2 MEAN CORPUSCULAR HEMOGLOBIN CONC (BEAKER) (test code = 752) 32.2 GM/DL 32.3-36.5 L RED CELL DISTRIBUTION WIDTH (BEAKER) (test code = 412) 13.7 % 11.6-14.4 PLATELET COUNT (BEAKER) (shaunna t code = 756) 248 K/CU MM 150-450 MEAN PLATELET VOLUME (BEAKER ) (test code = 754) 10.0 fL 9.4-12.4 NUCLEATED RED BLOOD CELLS (BEAKER) (test code = 413) 0 /100 WBC 0-0 NEUTROPHILS RELATIVE PERCENT (BEAKER) (test code = 429) 89 % LYMPHOCYTES RELATIVE PERCENT (BEAKER) (test code = 430) 5 % MONOCYTES RELATIVE PERCENT (BEAKER) (test code = 431) 4 % EOSINOPHILS RELATIVE PERCENT (BEAKER) (test code = 432) 0 % BASOPHILS RELATIVE PERCENT (BEAKER) (test code = 437) 0 % NEUTROPHILS ABSOLUTE COUNT (BEAKER) (test code = 670) 15.02 K/ L 1.78-5.38 H LYMPHOCYTES ABSOLUTE COUNT (BEAKER) (test code = 414) 0.82 K/ L 1.32-3.57 L MONOCYTES ABSOLUTE COUNT (BE IVA) (test code = 415) 0.69 K/ L 0.30-0.82 EOSINOPHILS ABSOLUTE COUNT (BEAKER) (test code = 416) 0.00 K/ L 0.04-0.54 L BASOPHILS ABSOLUTE COUNT (BE IVA) (test code = 417) 0.03 K/ L 0.01-0.08 IMMATURE GRANULOCYTES-RELATI VE PERCENT (BEAKER) (test code = 2801) 2 % 0-1 H U/S, ABDOMINAL, [id number] 03:56:00Reason for exam:->evaluation for hepatosplenomegalyFINAL REPORT Ultrasound of the Abdomen, complete Clinical History: evaluation for hepatosplenomegaly Discussion: Sonographic evaluation of the abdomen was performed. There is no prior study for direct comparison. Liver: 15 cm in length at the right midclavicular line. Mildly coarse liver echotexture. 4.5 x 3.9 x 4.4 cm simple cyst in the right hepatic lobe. Main portal vein is patent measuring 1 cm in diameter with hepatopetal flow. Biliary tree: Common duct 4 mm. No intrahepatic biliary ductal dilatation. Gallbladder: Small layering sludge. Tiny echogenic foci measuring up to 3 mm along the gallbladder wall, which may represent adherent sludge and/or polyps. No wall thickening. No pericholecystic fluid. Negative sonographic Pittman's sign. Pancreas: Partially visualized, unremarkable. Ascites: None seen Spleen: 10.1 cm in length. Kidneys: Right kidney 8.9 x 5.6 x 5.1 cm with cortical thickness of 1.2 cm. Left kidney 10.9 x 6.5 x 5.4 cm with cortical thickness of 1.5 cm. Normal cortical echogenicity. 6 mm echogenic focus in the left lower pole which may representa calyceal stone or parenchymal calcification. No hydrocephalus. IVC/Aorta: Segments partially seen. Unremarkable. Miscellaneous: Bilateral pleural effusions. Impression: Normal size spleen and liver.Mild coarse liver echotexture which may represent parenchymal disease. Correlate with LFTs.Small layering gallbladder sludge. Tiny echogenic foci along the gallbladder wall which may represent adherent sludge and/or polyps.Subcentimeter left renal calyceal stone or dystrophic parenchymal calcification.Bilateral pleural effusions. Signed: Doug Garcia MDRepparkland health center Verified Date/Time: 10/20/2018 03:56:51 Reading Location: [place] [id number] CT Body Reading Room RHEUMATOID FACTOR AB, REFLEX TO [id number] 11:58:00* Test Item Value Reference Range Interpretation Comme nts RHEUMATOID FACTOR (BEAKER) ( test code = 573) Negative ANTI-NUCLEAR ANTIBODY (EAN)2018-10-19 11:42:00* Test Item Value Reference Range Interpretation Comme nts ANTI-NUCLEAR ANTIBODY (EAN) (BEAKER) (test code = 418) Negative Negative Test performed by IFA method.Test performed by IFA method.[id number] 11:12:00 * Test Item Value Reference Range Interpretation Comme nts RPR SCREEN (BEAKER) (test co de = 420) Nonreactive Nonreactive BASIC METABOLIC [id number] 04:43:00* Test Item Value Reference Range Interpretation Comme nts SODIUM (BEAKER) (test code = 381) 128 meq/L 136-145 L POTASSIUM (BEAKER) (test code = 379) 3.4 meq/L 3.5-5.1 L CHLORIDE (BEAKER) (test code = 382) 98 meq/L 98-107 CO2 (BEAKER) (test code = 355) 21 meq/L 22-29 L BLOOD UREA NITROGEN (BEAKER) (test code = 354) 20 mg/dL 7-21 CREATININE (BEAKER) (test code = 358) 0.78 mg/dL 0.57-1.25 GLUCOSE RANDOM (BEAKER) (test code = 652) 108 mg/dL 70-105 H CALCIUM (BEAKER) (test code = 697) 7.8 mg/dL 8.4-10.2 L EGFR (BEAKER) (test code = 1092) 99 mL/min/1.73 sq m ESTIMATED GFR IS NOT ACCURATE CREATININE CLEARANCE IN PREDICTING GLOMERULAR FILTRATION RATE. ESTIMATED GFR IS NOT APPLICABLE FOR DIALYSIS PATIENTS. [id number] 04:31:00* Test Item Value Reference Range Interpretation Comme nts MAGNESIUM (BEAKER) (test cod e = 627) 1.7 mg/dL 1.6-2.6 CBC W/PLT COUNT & AUTO [id number] 04:12:00* Test Item Value Reference Range Interpretation Comme nts WHITE BLOOD CELL COUNT (BEAK ER) (test code = 775) 19.9 K/ L 3.5-10.5 H RED BLOOD CELL COUNT (BEAKER ) (test code = 761) 3.54 M/ L 4.63-6.08 L HEMOGLOBIN (BEAKER) (test co de = 410) 9.5 GM/DL 13.7-17.5 L HEMATOCRIT (BEAKER) (test co de = 411) 29.2 % 40.1-51.0 L MEAN CORPUSCULAR VOLUME (BAO KER) (test code = 753) 82.5 fL 79.0-92.2 MEAN CORPUSCULAR HEMOGLOBIN (BEAKER) (test code = 751) 26.8 pg 25.7-32.2 MEAN CORPUSCULAR HEMOGLOBIN CONC (BEAKER) (test code = 752) 32.5 GM/DL 32.3-36.5 RED CELL DISTRIBUTION WIDTH (BEAKER) (test code = 412) 13.4 % 11.6-14.4 PLATELET COUNT (BEAKER) (shaunna t code = 756) 211 K/CU MM 150-450 MEAN PLATELET VOLUME (BEAKER ) (test code = 754) 10.2 fL 9.4-12.4 NUCLEATED RED BLOOD CELLS (BEAKER) (test code = 413) 0 /100 WBC 0-0 NEUTROPHILS RELATIVE PERCENT (BEAKER) (test code = 429) 88 % LYMPHOCYTES RELATIVE PERCENT (BEAKER) (test code = 430) 4 % MONOCYTES RELATIVE PERCENT (BEAKER) (test code = 431) 4 % EOSINOPHILS RELATIVE PERCENT (BEAKER) (test code = 432) 0 % BASOPHILS RELATIVE PERCENT (BEAKER) (test code = 437) 0 % NEUTROPHILS ABSOLUTE COUNT (BEAKER) (test code = 670) 17.57 K/ L 1.78-5.38 H LYMPHOCYTES ABSOLUTE COUNT (BEAKER) (test code = 414) 0.76 K/ L 1.32-3.57 L MONOCYTES ABSOLUTE COUNT (BE IVA) (test code = 415) 0.81 K/ L 0.30-0.82 EOSINOPHILS ABSOLUTE COUNT (BEAKER) (test code = 416) 0.00 K/ L 0.04-0.54 L BASOPHILS ABSOLUTE COUNT (BE IVA) (test code = 417) 0.06 K/ L 0.01-0.08 IMMATURE GRANULOCYTES-RELATI VE PERCENT (BEAKER) (test code = 2801) 4 % 0-1 H [id number] 16:16:00* Test Item Value Reference Range Interpretation Comme nts FERRITIN (BEAKER) (test code = 361) 6393 ng/mL 5-275 H BASIC METABOLIC [id number] 07:50:00* Test Item Value Reference Range Interpretation Comme nts SODIUM (BEAKER) (test code = 381) 130 meq/L 136-145 L POTASSIUM (BEAKER) (test code = 379) 3.4 meq/L 3.5-5.1 L CHLORIDE (BEAKER) (test code = 382) 98 meq/L 98-107 CO2 (BEAKER) (test code = 355) 21 meq/L 22-29 L BLOOD UREA NITROGEN (BEAKER) (test code = 354) 15 mg/dL 7-21 CREATININE (BEAKER) (test code = 358) 0.72 mg/dL 0.57-1.25 GLUCOSE RANDOM (BEAKER) (test code = 652) 98 mg/dL 70-105 CALCIUM (BEAKER) (test code = 697) 7.5 mg/dL 8.4-10.2 L EGFR (BEAKER) (test code = 1092) 108 mL/min/1.73 sq m ESTIMATED GFR IS NOT ACCURATE CREATININE CLEARANCE IN PREDICTING GLOMERULAR FILTRATION RATE. ESTIMATED GFR IS NOT APPLICABLE FOR DIALYSIS PATIENTS. [id number] 07:47:00* Test Item Value Reference Range Interpretation Comme nts MAGNESIUM (BEAKER) (test cod e = 627) 1.9 mg/dL 1.6-2.6 CBC (HEMOGRAM ONLY)2018-10-18 05:57:00* Test Item Value Reference Range Interpretation Comme nts WHITE BLOOD CELL COUNT (BEAK ER) (test code = 775) 22.4 K/ L 3.5-10.5 H RED BLOOD CELL COUNT (BEAKER ) (test code = 761) 4.09 M/ L 4.63-6.08 L HEMOGLOBIN (BEAKER) (test co de = 410) 10.9 GM/DL 13.7-17.5 L HEMATOCRIT (BEAKER) (test co de = 411) 33.9 % 40.1-51.0 L MEAN CORPUSCULAR VOLUME (BAO KER) (test code = 753) 82.9 fL 79.0-92.2 MEAN CORPUSCULAR HEMOGLOBIN (BEAKER) (test code = 751) 26.7 pg 25.7-32.2 MEAN CORPUSCULAR HEMOGLOBIN CONC (BEAKER) (test code = 752) 32.2 GM/DL 32.3-36.5 L RED CELL DISTRIBUTION WIDTH (BEAKER) (test code = 412) 13.4 % 11.6-14.4 PLATELET COUNT (BEAKER) (shaunna t code = 756) 259 K/CU MM 150-450 MEAN PLATELET VOLUME (BEAKER ) (test code = 754) 10.0 fL 9.4-12.4 NUCLEATED RED BLOOD CELLS (BEAKER) (test code = 413) 0 /100 WBC 0-0 LACTIC ACID, [id number] 18:24:00* Test Item Value Reference Range Interpretation Comme nts LACTATE BLOOD VENOUS (2) (BE IVA) (test code = 2872) 1.5 mmol/L 0.5-2.2 MR, EXTREMITY, UPPER, [id number] 08:29:00Reason for exam:->hand and wrist pain and swelling, synovitis, persistent fevers, lymphadenopathyFINAL REPORT MRI right hand with and without contrast. INDICATION: hand and wrist pain and swelling, synovitis, persistent fevers, lymphadenopathy COMPARISON: Radiograph dated October 09, 2018 TECHNIQUE: Multiplanar multisequence MRI examination of the right hand was performed withand without intravenous gadolinium. FINDINGS: Exam is mildly motion degraded. No evidence of acute f racture, or malalignment. Mild degenerative changes are noted at the right wrist and hand, no evidence of significant joint effusion. There are small foci of possible enhancing erosions in the carpalbones, not optimally evaluated on this exam. Marrow signal is otherwise normal. There is prominent enhancement of the flexor tenosynovium, without significant fluid collection. This is most prominentat the level of the wrist, and metacarpal, but also extending to the first and fifth fingers. The tendons appear normal, no evidence of disruption. Additionally, there is prominent synovial and periarticular soft tissue enhancement of the first interphalangeal joint, and fifth DIP joint. Hand muscul ature demonstrates normal bulk. There is patchy subcutaneous and muscle edema without clear drainable collection. IMPRESSION: Prominent flexor tenosynovial thickening and enhancement, extending alongthe first and fifth fingers. There are suspected small erosions in the carpal bones, superimposed on degenerative change. Nonspecific synovial and periarticular soft tissue enhancement is noted at the first interphalangeal joint, and fifth DIP joint. This constellation of findings may reflect inflammatory arthropathy, such as rheumatoid arthritis; indolent infection may also be considered in the appropriate clinical setting. Patchy soft tissue edema of the right wrist and hand. No large joint effusion or drainable collection identified. Motion degraded exam. Signed: Halima, Abi MDReport VerifiedDate/Time: 10/17/2018 08:29:29 Reading Location: [facility] C013V Neuro Reading Room TITIS C [id number] 06:24:00* Test Item Value Reference Range Interpretation Comme nts HEPATITIS C ANTIBODY (BEAKER ) (test code = 367) Nonreactive Nonreactive BASIC METABOLIC [id number] 06:18:00* Test Item Value Reference Range Interpretation Comme nts SODIUM (BEAKER) (test code = 381) 130 meq/L 136-145 L POTASSIUM (BEAKER) (test code = 379) 3.7 meq/L 3.5-5.1 CHLORIDE (BEAKER) (test code = 382) 98 meq/L 98-107 CO2 (BEAKER) (test code = 355) 24 meq/L 22-29 BLOOD UREA NITROGEN (BEAKER) (test code = 354) 21 mg/dL 7-21 CREATININE (BEAKER) (test code = 358) 0.79 mg/dL 0.57-1.25 GLUCOSE RANDOM (BEAKER) (test code = 652) 107 mg/dL 70-105 H CALCIUM (BEAKER) (test code = 697) 7.7 mg/dL 8.4-10.2 L EGFR (BEAKER) (test code = 1092) 97 mL/min/1.73 sq m ESTIMATED GFR IS NOT ACCURATE CREATININE CLEARANCE IN PREDICTING GLOMERULAR FILTRATION RATE. ESTIMATED GFR IS NOT APPLICABLE FOR DIALYSIS PATIENTS. [id number] 06:16:00* Test Item Value Reference Range Interpretation Comme nts MAGNESIUM (BEAKER) (test cod e = 627) 1.6 mg/dL 1.6-2.6 CBC (HEMOGRAM ONLY)2018-10-17 05:51:00* Test Item Value Reference Range Interpretation Comme nts WHITE BLOOD CELL COUNT (BEAK ER) (test code = 775) 15.3 K/ L 3.5-10.5 H RED BLOOD CELL COUNT (BEAKER ) (test code = 761) 3.69 M/ L 4.63-6.08 L HEMOGLOBIN (BEAKER) (test co de = 410) 10.0 GM/DL 13.7-17.5 L HEMATOCRIT (BEAKER) (test co de = 411) 30.6 % 40.1-51.0 L MEAN CORPUSCULAR VOLUME (BAO KER) (test code = 753) 82.9 fL 79.0-92.2 MEAN CORPUSCULAR HEMOGLOBIN (BEAKER) (test code = 751) 27.1 pg 25.7-32.2 MEAN CORPUSCULAR HEMOGLOBIN CONC (BEAKER) (test code = 752) 32.7 GM/DL 32.3-36.5 RED CELL DISTRIBUTION WIDTH (BEAKER) (test code = 412) 13.4 % 11.6-14.4 PLATELET COUNT (BEAKER) (shaunna t code = 756) 282 K/CU MM 150-450 MEAN PLATELET VOLUME (BEAKER ) (test code = 754) 9.7 fL 9.4-12.4 NUCLEATED RED BLOOD CELLS (BEAKER) (test code = 413) 0 /100 WBC 0-0 RESPIRATORY PANEL [id number] 09:06:00* Test Item Value Reference Range Interpretation Comme nts HUMAN METAPNEUMOVIRUS (BEAKER) (test code = 2683) Not detected Not detected, Equivocal RHINOVIRUS (BEAKER) (test code = 2684) Not detected Not detected, Equivocal INFLUENZA A (BEAKER) (test code = 2685) Not detected Not detected, Equivocal INFLUENZA A (NO SUBTYPE) (test code = 3606) Not detected, Equivocal INFLUENZA A SUBTYPE H1 (BEAKER) (test code = 2686) Not detected, Equivocal INFLUENZA A SUBTYPE H3 (BEAKER) (test code = 2687) Not detected, Equivocal INFLUENZA A SUBTYPE H1-2009 (BEAKER) (test code = 3198) Not detected, Equivocal INFLUENZA B (BEAKER) (test code = 2688) Not detected Not detected, Equivocal RESPIRATORY SYNCYTIAL VIRUS (BEAKER) (test code = 3199) Not detected Not detected, Equivocal PARAINFLUENZA VIRUS 1 (BEAKER) (test code = 2691) Not detected Not detected, Equivocal PARAINFLUENZA VIRUS 2 (BEAKER) (test code = 2692) Not detected Not detected, Equivocal PARAINFLUENZA VIRUS 3 (BEAKER) (test code = 2693) Not detected Not detected, Equivocal PARAINFLUENZA VIRUS 4 (BEAKER) (test code = 3200) Not detected Not detected, Equivocal ADENOVIRUS (BEAKER) (test code = 4984) Not detected Not detected, Equivocal CORONAVIRUS 229E (BEAKER) (test code = 3201) Not detected Not detected, Equivocal CORONAVIRUS HKU1 (BEAKER) (test code = 3202) Not detected Not detected, Equivocal CORONAVIRUS NL63 (BEAKER) (test code = 3203) Not detected Not detected, Equivocal CORONAVIRUS OC43 (BEAKER) (test code = 3204) Not detected Not detected, Equivocal BORDETELLA PERTUSSIS (BEAKER) (test code = 3205) Not detected Not detected, Equivocal CHLAMYDOPHILA PNEUMONIAE (BEAKER) (test code = 3206) Not detected Not detected, Equivocal MYCOPLASMA PNEUMONIAE (BEAKER) (test code = 3207) Not detected Not detected, Equivocal Other viruses and bacteria not targeted by this PCR panel cannot be excluded; therefore clinical correlation and follow up of serology, culture results, and other molecular studies is required. The results are not intended to be used as the sole means for clinical diagnosis or patient management decisions. This sample was tested at the [facility] Molecular Diagnostics Laboratory using the [employer] FilmArray Respiratory Panel. It is FDA cleared and has been verified and approved by the [facility] Molecular[facility] for clinical use on nasopharyngeal swab specimens.The performance of the FilmArray RP has not been established in individuals who received influenza vaccine. Recent administration of a nasal influenza vaccine may cause false positive results for Influenza A and/orInfluenza B.POCT-GLUCOSE [id number] 04:39:00* Test Item Value Reference Range Interpretation Comme [facility] POC-GLUCOSE METER (BEAKER) (test code = 1538) 148 mg/dL 70-110 H TESTED AT [facility] [address] [address] BASIC METABOLIC [id number] 04:34:00* Test Item Value Reference Range Interpretation Comme nts SODIUM (BEAKER) (test code = 381) 133 meq/L 136-145 L POTASSIUM (BEAKER) (test code = 379) 3.9 meq/L 3.5-5.1 CHLORIDE (BEAKER) (test code = 382) 101 meq/L 98-107 CO2 (BEAKER) (test code = 355) 22 meq/L 22-29 BLOOD UREA NITROGEN (BEAKER) (test code = 354) 17 mg/dL 7-21 CREATININE (BEAKER) (test code = 358) 0.68 mg/dL 0.57-1.25 GLUCOSE RANDOM (BEAKER) (test code = 652) 145 mg/dL 70-105 H CALCIUM (BEAKER) (test code = 697) 7.7 mg/dL 8.4-10.2 L EGFR (BEAKER) (test code = 1092) 116 mL/min/1.73 sq m ESTIMATED GFR IS NOT ACCURATE CREATININE CLEARANCE IN PREDICTING GLOMERULAR FILTRATION RATE. ESTIMATED GFR IS NOT APPLICABLE FOR DIALYSIS PATIENTS. [id number] 04:27:00* Test Item Value Reference Range Interpretation Comme nts MAGNESIUM (BEAKER) (test cod e = 627) 2.4 mg/dL 1.6-2.6 CBC (HEMOGRAM ONLY)2018-10-16 04:13:00* Test Item Value Reference Range Interpretation Comme nts WHITE BLOOD CELL COUNT (BEAK ER) (test code = 775) 15.0 K/ L 3.5-10.5 H RED BLOOD CELL COUNT (BEAKER ) (test code = 761) 3.86 M/ L 4.63-6.08 L HEMOGLOBIN (BEAKER) (test co de = 410) 10.4 GM/DL 13.7-17.5 L HEMATOCRIT (BEAKER) (test co de = 411) 32.2 % 40.1-51.0 L MEAN CORPUSCULAR VOLUME (BAO KER) (test code = 753) 83.4 fL 79.0-92.2 MEAN CORPUSCULAR HEMOGLOBIN (BEAKER) (test code = 751) 26.9 pg 25.7-32.2 MEAN CORPUSCULAR HEMOGLOBIN CONC (BEAKER) (test code = 752) 32.3 GM/DL 32.3-36.5 RED CELL DISTRIBUTION WIDTH (BEAKER) (test code = 412) 13.2 % 11.6-14.4 PLATELET COUNT (BEAKER) (shaunna t code = 756) 294 K/CU MM 150-450 MEAN PLATELET VOLUME (BEAKER ) (test code = 754) 9.8 fL 9.4-12.4 NUCLEATED RED BLOOD CELLS (BEAKER) (test code = 413) 0 /100 WBC 0-0 TISSUE [id number] 15:15:00Surgical Pathology Report Case: [id number] Authorizing Provider: Angel Burns MD Collected: 10/12/2018 1817 Ordering Location: [address] Received: 10/13/2018 0802 Service Pathologist: Ness Arzola MD Specimen: Supraclavicular SUPRACLAVICULAR LYMPH NODE, CORE BIOPSY: - MOSTLY FIBRINOPURULENT EXUDATES WITH SCANT LYMPHOID TISSUE - NEGATIVE FOR GRANULOMA - AE1/AE3 KERATIN IMMUNOSTAIN NEGATIVE - AFB AND GMS SPECIAL STAINS NEGATIVE FOR FUNGAL ORGANISM OR ACID FAST BACILLICC/pl Signing Pathologist Direct Phone Line: [phone] signed by Ness Arzola MD on 10/15/2018at 3:15 PMThe lymph node biopsy shows mostly fibrinopurulent exudates. The biopsy material may not be market survey representative of the entire lesion. Recommend additional studies if clinically indicated. [id number], [id number] C6Ugemtzhoa: core biopsyPre and postop diagnosis: Not providedLeft supraclavicular lymph node biopsy of lymph node measuring 4 x 4 cm approximately The specimen is received in one part labeled with the patient's name, Manjit Delong and accession number [id number] which corresponds to the accompanying requisition. The specimen is is received in a biohazard bag in a specimen container and in formalin labeled "supraclavicualr lymph node, left" and consists of three main cores of fajardo-white tissue ranging from 0.6 cm in length x 0.1 cm in diameter to 1.1 cm in length x 0.1 cm in diameter along with multiple irregular fragments of fajardo-white tissue measuring 0.3 x 0.3 x 0.1 cm in aggregate. The specimen is submitted in toto in one cassette. AG/pl The supraclavicular lymph node core biopsy consists of mainly small pieces of fibrinopurulent exudates admixed with small piece of lymphoid tissue and inflamed granulation tissue. The AE1/AE3 stain is negative, not supporting for metastatic carcinoma. AFB and GMS stains are all negative for acid fast bacilli and fungal organism.The interpretation of this case included the use of immunohistochemistry or special stains.Control Slides Examined: In-house known positive controls were evaluated along with the test tissue. These control slides run alongside of the patients sample show appropriate staining. Internal positive and negative controls when available are evaluated Immunohistochemistry technical testing was performed at [facility], Pathology Laboratory where it was developed and its performance characteristics were determined. It has not been cleared or approved by the U.S. Food and Drug Administration. The FDA has determined that such clearance or approval is not necessary. The test is used for clinical purposes. It should not be regarded as investigational or for research. This laboratory is certified under the Clinical Laboratory Improvement Amendments of 1988 (CLIA-88) as qualified to perform high complexity clinical laboratory testing.BODY FLUID CULTURE + GRAM [id number] 12:50:00* Test Item Value Reference Range Interpretation Comme nts CULTURE (BEAKER) (test code = 1095) No growth GRAM STAIN RESULT (BEAKER) (test code = 1123) <1+ WBCs GRAM STAIN RESULT (BEAKER) (test code = 53630) No organisms seen BASIC METABOLIC [id number] 06:19:00* Test Item Value Reference Range Interpretation Comme nts SODIUM (BEAKER) (test code = 381) 129 meq/L 136-145 L POTASSIUM (BEAKER) (test code = 379) 3.3 meq/L 3.5-5.1 L CHLORIDE (BEAKER) (test code = 382) 93 meq/L 98-107 L CO2 (BEAKER) (test code = 355) 25 meq/L 22-29 BLOOD UREA NITROGEN (BEAKER) (test code = 354) 16 mg/dL 7-21 CREATININE (BEAKER) (test code = 358) 0.74 mg/dL 0.57-1.25 GLUCOSE RANDOM (BEAKER) (test code = 652) 108 mg/dL 70-105 H CALCIUM (BEAKER) (test code = 697) 7.9 mg/dL 8.4-10.2 L EGFR (BEAKER) (test code = 1092) 105 mL/min/1.73 sq m ESTIMATED GFR IS NOT ACCURATE CREATININE CLEARANCE IN PREDICTING GLOMERULAR FILTRATION RATE. ESTIMATED GFR IS NOT APPLICABLE FOR DIALYSIS PATIENTS. [id number] 06:18:00* Test Item Value Reference Range Interpretation Comme nts MAGNESIUM (BEAKER) (test cod e = 627) 1.8 mg/dL 1.6-2.6 CBC (HEMOGRAM ONLY)2018-10-15 05:52:00* Test Item Value Reference Range Interpretation Comme nts WHITE BLOOD CELL COUNT (BEAK ER) (test code = 775) 16.7 K/ L 3.5-10.5 H RED BLOOD CELL COUNT (BEAKER ) (test code = 761) 3.95 M/ L 4.63-6.08 L HEMOGLOBIN (BEAKER) (test co de = 410) 10.7 GM/DL 13.7-17.5 L HEMATOCRIT (BEAKER) (test co de = 411) 32.7 % 40.1-51.0 L MEAN CORPUSCULAR VOLUME (BAO KER) (test code = 753) 82.8 fL 79.0-92.2 MEAN CORPUSCULAR HEMOGLOBIN (BEAKER) (test code = 751) 27.1 pg 25.7-32.2 MEAN CORPUSCULAR HEMOGLOBIN CONC (BEAKER) (test code = 752) 32.7 GM/DL 32.3-36.5 RED CELL DISTRIBUTION WIDTH (BEAKER) (test code = 412) 13.1 % 11.6-14.4 PLATELET COUNT (BEAKER) (shaunna t code = 756) 357 K/CU MM 150-450 MEAN PLATELET VOLUME (BEAKER ) (test code = 754) 9.4 fL 9.4-12.4 NUCLEATED RED BLOOD CELLS (BEAKER) (test code = 413) 0 /100 WBC 0-0 EBV VIRAL [id number] 13:27:00* Test Item Value Reference Range Interpretation Comme nts EBV VIRAL LOAD - NEGATIVE (BEAKER) (test code = 2559) Negative or below the linear range of the assay (<500 copies/mL) This assay was performed by real-time PCR for the detection of the Kevin-Ponce virus (EBV) gene EBNA-1. The test is composed of (1) DNA extraction from patient specimen, and (2) real-time PCR amplification and detection with DHAB-7-kwrqwbma primers and probes. A well-conserved region of the EBNA-1gene is targeted, along with an internal control sequence used to confirm PCR amplification. Asympto matic carriers and viral genetic variation, among other factors, can affect the accuracy of nucleicacid testing; therefore, results should be interpreted in light of clinical data.This test was developed and its performance characteristics determined by the [facility] Pathology Depar tment, Section of Molecular Pathology. It has not been cleared or approved by the U.S. Food and Drug Administration (FDA), since FDA approval is not required for clinical use of the test. Validation was done as required by The Clinical Laboratory Improvement Amendments of 1988.PERIPHERAL BLOOD SMEAR - PATHOLOGIST [id number] 08:56:00* Test Item Value Reference Range Interpretation Comme nts WBC MORPHOLOGY (BEAKER) (test code = 2847) Toxic Granulation PERIPHERAL SMR REVIEW (BEAKER) (test code = 5641) Cell counts confirmed. [id number] (BEAKER) (test code = 2849) Amy Oneal M.D. (electronic signature) [id number] 05:03:00* Test Item Value Reference Range Interpretation Comme nts MAGNESIUM (BEAKER) (test code = 627) 1.6 mg/dL 1.6-2.6 Specimen sligh tly hemolyzed BASIC METABOLIC [id number] 05:03:00* Test Item Value Reference Range Interpretation Comme nts SODIUM (BEAKER) (test code = 381) 129 meq/L 136-145 L POTASSIUM (BEAKER) (test code = 379) 3.7 meq/L 3.5-5.1 Specimen sligh tly hemolyzed CHLORIDE (BEAKER) (test code = 382) 95 meq/L 98-107 L CO2 (BEAKER) (test code = 355) 24 meq/L 22-29 BLOOD UREA NITROGEN (BEAKER) (test code = 354) 14 mg/dL 7-21 CREATININE (BEAKER) (test code = 358) 0.64 mg/dL 0.57-1.25 Specimen sligh tly hemolyzed GLUCOSE RANDOM (BEAKER) (test code = 652) 96 mg/dL 70-105 CALCIUM (BEAKER) (test code = 697) 8.0 mg/dL 8.4-10.2 L EGFR (BEAKER) (test code = 1092) 124 mL/min/1.73 sq m ESTIMATED GFR IS NOT ACCURATE CREATININE CLEARANCE IN PREDICTING GLOMERULAR FILTRATION RATE. ESTIMATED GFR IS NOT APPLICABLE FOR DIALYSIS PATIENTS. CMV PCR, [id number] 18:52:00* Test Item Value Reference Range Interpretation Comme nts CMV VIRAL LOAD - NEGATIVE (BEAKER) (test code = 2558) Negative or below the linear range of the assay (<375 copies/mL) Cytomegalovirus (CMV) infection can cause significant disease in immunosuppressed patients. However, it is common for CMV to manifest as a limited infection which is of no clinical significance in immunosuppressed patients or in healthy individuals.Viral load measurements are helpful to identify clinical CMV infection and to guide the pre-emptive management of antiviral therapy. For treatment of CMV infection due to reactivation in transplant recipients, a threshold between 4,000 and 5,000 copies/mL is suggested. For treatment of primary CMV infection, a lower threshold can be used.CMV infection may also be monitored using weekly serial measurements. Serial measurements of CMV DNA viral load can be evaluated by identifying a 10- fold change, as well as assessing the CMV DNA viral load and the clinical context for each patient.The plasma CMV DNA viral load was detected using quantitative polymerase chain reaction and fluorescent monitoring of a specific hybridized probe. Genetic variation and other factors can affect the accuracy of nucleic acid testing. Therefore, the results should be interpreted in light of clinical data. A negative result may not exclude the presence of CMV disea se.This test was developed and its performance characteristics determined by the [facility] Pathology Department, Section of Molecular Pathology. It has not been cleared or approved bythe U.S. Food and Drug Administration (FDA), since FDA approval is not required for clinical use ofthe test. Validation was done as required by The Clinical Laboratory Improvement Amendments of 1988.U/S, BIOPSY, THORAX/NECK, SOFT [id number] 18:07:00Reason for exam:->core biopsy of L supraclavicular lymph node seen on CT- path, bacterial, fungal, afb cultures. Discussed with surgery and ENT and recommend core biopsy by IR prior to excisional biopsyFINAL REPORT INDICATION:68-year-old male with left supraclavicular lymphadenopathy. Request for image guided percutaneous biopsy. COMPARISON:Chest CT October 08, 2018 TECHNIQUE:Ultrasound-guided core biopsy of left supraclavicular lymphadenopathy. FINDINGS: The procedure was explained to the patient and informed consent was signed. The patient was positioned supine and preliminary images confirmed a safe window to left supraclavicular valerie mass. Timeout was performed. The patie nt's skin was prepped and draped in standard sterile fashion. 2% lidocaine was used for local anesthesia. Using ultrasound guidance, a 18-gauge biopsy device was advanced into the left supraclavicular valerie mass. A core biopsy was obtained and placed in sterile saline to be sent to microbiology. Anadditional two core biopsies were acquired and placed in sterile saline. Lastly, an additional two core biopsies were acquired and placed in formalin for pathologic. Patient tolerated procedure well and was transferred back to his hospital room. IMPRESSION: Ultrasound-guided core biopsy of left supraclavicular lymphadenopathy. Core sent to microbiology in sterile saline and to pathology in formalin. Signed: João Vergara MDReport Verified Date/Time: 10/13/2018 18:07:34 Reading Location: [facility] [id number] Ortho Consult Reading Room (MANUAL DIFFERENTIAL)2018-10-13 17:03:00* Test Item Value Reference Range Interpretation Comme nts NEUTROPHILS - REL (DIFF) (BE IVA) (test code = 1359) 87 % LYMPHOCYTES - REL (DIFF) (BE IVA) (test code = 1360) 2 % MONOCYTES - REL (DIFF) (BEAK ER) (test code = 1361) 3 % BASOPHILS - REL (DIFF) (BEAK ER) (test code = 1363) 1 % BANDS - REL (DIFF) (BEAKER) (test code = 1348) 7 % 0-10 NEUTROPHILS - ABS (DIFF) (BE IVA) (test code = 1365) 12.70 K/ L 1.80-8.00 H LYMPHOCYTES - ABS (DIFF) (BE IVA) (test code = 1366) 0.29 K/ L 1.48-4.50 L MONOCYTES - ABS (DIFF) (BEAK ER) (test code = 1367) 0.44 K/ L 0.00-1.30 BASOPHILS - ABS (DIFF) (BEAK ER) (test code = 1369) 0.15 K/ L 0.00-0.20 BANDS-ABS (DIFF) (BEAKER) (t est code = 1349) 1.0 K/ L 0.0-0.8 H TOTAL COUNTED (BEAKER) (test code = 1351) 100 BANDS + SEGMENTED NEUTROPHIL S (BEAKER) (test code = 1352) 13.72 WBC MORPHOLOGY (BEAKER) (shaunna t code = 487) Normal PLT MORPHOLOGY (BEAKER) (shaunna t code = 486) Normal POIKILOCYTES (BEAKER) (test code = 966) 1+ few OSMOLALITY, [id number] 11:03:00* Test Item Value Reference Range Interpretation Comme nts OSMOLALITY, SERUM (BEAKER) ( test code = 615) 265 mOsm/kg 275-295 L [id number] 10:12:00* Test Item Value Reference Range Interpretation Comme nts CORTISOL, TOTAL (BEAKER) (te st code = 2755) 20.7 ug/dL 3.7-19.4 H [id number] 06:17:00* Test Item Value Reference Range Interpretation Comme nts MAGNESIUM (BEAKER) (test cod e = 627) 1.7 mg/dL 1.6-2.6 BASIC METABOLIC [id number] 06:17:00* Test Item Value Reference Range Interpretation Comme nts SODIUM (BEAKER) (test code = 381) 129 meq/L 136-145 L POTASSIUM (BEAKER) (test code = 379) 3.7 meq/L 3.5-5.1 CHLORIDE (BEAKER) (test code = 382) 95 meq/L 98-107 L CO2 (BEAKER) (test code = 355) 21 meq/L 22-29 L BLOOD UREA NITROGEN (BEAKER) (test code = 354) 15 mg/dL 7-21 CREATININE (BEAKER) (test code = 358) 0.65 mg/dL 0.57-1.25 GLUCOSE RANDOM (BEAKER) (test code = 652) 85 mg/dL 70-105 CALCIUM (BEAKER) (test code = 697) 8.3 mg/dL 8.4-10.2 L EGFR (BEAKER) (test code = 1092) 122 mL/min/1.73 sq m ESTIMATED GFR IS NOT ACCURATE CREATININE CLEARANCE IN PREDICTING GLOMERULAR FILTRATION RATE. ESTIMATED GFR IS NOT APPLICABLE FOR DIALYSIS PATIENTS. CBC W/PLT COUNT & AUTO [id number] 05:59:00* Test Item Value Reference Range Interpretation Comme nts WHITE BLOOD CELL COUNT (BEAK ER) (test code = 775) 14.6 K/ L 3.5-10.5 H RED BLOOD CELL COUNT (BEAKER ) (test code = 761) 4.17 M/ L 4.63-6.08 L HEMOGLOBIN (BEAKER) (test co de = 410) 11.3 GM/DL 13.7-17.5 L HEMATOCRIT (BEAKER) (test co de = 411) 34.7 % 40.1-51.0 L MEAN CORPUSCULAR VOLUME (BAO KER) (test code = 753) 83.2 fL 79.0-92.2 MEAN CORPUSCULAR HEMOGLOBIN (BEAKER) (test code = 751) 27.1 pg 25.7-32.2 MEAN CORPUSCULAR HEMOGLOBIN CONC (BEAKER) (test code = 752) 32.6 GM/DL 32.3-36.5 RED CELL DISTRIBUTION WIDTH (BEAKER) (test code = 412) 13.1 % 11.6-14.4 PLATELET COUNT (BEAKER) (shaunna t code = 756) 420 K/CU MM 150-450 MEAN PLATELET VOLUME (BEAKER ) (test code = 754) 9.5 fL 9.4-12.4 NUCLEATED RED BLOOD CELLS (BEAKER) (test code = 413) 0 /100 WBC 0-0 NEUTROPHILS RELATIVE PERCENT (BEAKER) (test code = 429) 87 % LYMPHOCYTES RELATIVE PERCENT (BEAKER) (test code = 430) 5 % MONOCYTES RELATIVE PERCENT (BEAKER) (test code = 431) 7 % EOSINOPHILS RELATIVE PERCENT (BEAKER) (test code = 432) 0 % BASOPHILS RELATIVE PERCENT (BEAKER) (test code = 437) 0 % NEUTROPHILS ABSOLUTE COUNT (BEAKER) (test code = 670) 12.71 K/ L 1.78-5.38 H LYMPHOCYTES ABSOLUTE COUNT (BEAKER) (test code = 414) 0.71 K/ L 1.32-3.57 L MONOCYTES ABSOLUTE COUNT (BE IVA) (test code = 415) 0.98 K/ L 0.30-0.82 H EOSINOPHILS ABSOLUTE COUNT (BEAKER) (test code = 416) 0.01 K/ L 0.04-0.54 L BASOPHILS ABSOLUTE COUNT (BE IVA) (test code = 417) 0.06 K/ L 0.01-0.08 IMMATURE GRANULOCYTES-RELATI VE PERCENT (BEAKER) (test code = 2801) 1 % 0-1 OSMOLALITY, [id number] 14:47:00* Test Item Value Reference Range Interpretation Comme nts OSMOLALITY URINE (BEAKER) (t est code = 614) 915 mOsm/kg 40-1,400 BLOOD [id number] 08:01:00* Test Item Value Reference Range Interpretation Comme nts CULTURE (BEAKER) (test code = 1095) No growth in 5 days CBC W/PLT COUNT & AUTO [id number] 07:26:00* Test Item Value Reference Range Interpretation Comme nts WHITE BLOOD CELL COUNT (BEAK ER) (test code = 775) 15.3 K/ L 3.5-10.5 H RED BLOOD CELL COUNT (BEAKER ) (test code = 761) 4.10 M/ L 4.63-6.08 L HEMOGLOBIN (BEAKER) (test co de = 410) 11.1 GM/DL 13.7-17.5 L HEMATOCRIT (BEAKER) (test co de = 411) 34.8 % 40.1-51.0 L MEAN CORPUSCULAR VOLUME (BAO KER) (test code = 753) 84.9 fL 79.0-92.2 MEAN CORPUSCULAR HEMOGLOBIN (BEAKER) (test code = 751) 27.1 pg 25.7-32.2 MEAN CORPUSCULAR HEMOGLOBIN CONC (BEAKER) (test code = 752) 31.9 GM/DL 32.3-36.5 L RED CELL DISTRIBUTION WIDTH (BEAKER) (test code = 412) 13.1 % 11.6-14.4 PLATELET COUNT (BEAKER) (shaunna t code = 756) 393 K/CU MM 150-450 MEAN PLATELET VOLUME (BEAKER ) (test code = 754) 9.5 fL 9.4-12.4 NUCLEATED RED BLOOD CELLS (BEAKER) (test code = 413) 0 /100 WBC 0-0 NEUTROPHILS RELATIVE PERCENT (BEAKER) (test code = 429) 85 % LYMPHOCYTES RELATIVE PERCENT (BEAKER) (test code = 430) 6 % MONOCYTES RELATIVE PERCENT (BEAKER) (test code = 431) 8 % EOSINOPHILS RELATIVE PERCENT (BEAKER) (test code = 432) 0 % BASOPHILS RELATIVE PERCENT (BEAKER) (test code = 437) 1 % NEUTROPHILS ABSOLUTE COUNT (BEAKER) (test code = 670) 12.94 K/ L 1.78-5.38 H LYMPHOCYTES ABSOLUTE COUNT (BEAKER) (test code = 414) 0.92 K/ L 1.32-3.57 L MONOCYTES ABSOLUTE COUNT (BE IVA) (test code = 415) 1.18 K/ L 0.30-0.82 H EOSINOPHILS ABSOLUTE COUNT (BEAKER) (test code = 416) 0.02 K/ L 0.04-0.54 L BASOPHILS ABSOLUTE COUNT (BE IVA) (test code = 417) 0.07 K/ L 0.01-0.08 IMMATURE GRANULOCYTES-RELATI VE PERCENT (BEAKER) (test code = 2801) 1 % 0-1 URINALYSIS W/ [id number] 07:05:00* Test Item Value Reference Range Interpretation Comme nts COLOR (BEAKER) (test code = 470) Yellow CLARITY (BEAKER) (test code = 469) Clear SPECIFIC GRAVITY UA (BEAKER) (test code = 468) 1.031 1.001-1.035 PH UA (BEAKER) (test code = 467) 6.5 5.0-8.0 PROTEIN UA (BEAKER) (test code = 464) 50 mg/dL Negative A GLUCOSE UA (BEAKER) (test code = 365) Negative Negative KETONES UA (BEAKER) (test code = 371) 80 mg/dL Negative A BILIRUBIN UA (BEAKER) (test code = 462) Negative Negative BLOOD UA (BEAKER) (test code = 461) Negative Negative NITRITE UA (BEAKER) (test code = 465) Negative Negative LEUKOCYTE ESTERASE UA (BEAKER) (test code = 466) Negative Negative UROBILINOGEN UA (BEAKER) (test code = 463) 4.0 mg/dL 0.2-1.0 H RBC UA (BEAKER) (test code = 519) 2 /HPF WBC UA (BEAKER) (test code = 520) 1 /HPF BACTERIA (BEAKER) (test code = 517) Occasional MUCUS (BEAKER) (test code = 7654) Few SOURCE(BEAKER) (test code = 2795) Urine, Clean Catch BASIC METABOLIC [id number] 07:02:00* Test Item Value Reference Range Interpretation Comme nts SODIUM (BEAKER) (test code = 381) 128 meq/L 136-145 L POTASSIUM (BEAKER) (test code = 379) 4.0 meq/L 3.5-5.1 Specimen sligh tly hemolyzed CHLORIDE (BEAKER) (test code = 382) 96 meq/L 98-107 L CO2 (BEAKER) (test code = 355) 21 meq/L 22-29 L BLOOD UREA NITROGEN (BEAKER) (test code = 354) 14 mg/dL 7-21 CREATININE (BEAKER) (test code = 358) 0.61 mg/dL 0.57-1.25 Specimen sligh tly hemolyzed GLUCOSE RANDOM (BEAKER) (test code = 652) 85 mg/dL 70-105 CALCIUM (BEAKER) (test code = 697) 8.2 mg/dL 8.4-10.2 L EGFR (BEAKER) (test code = 1092) 131 mL/min/1.73 sq m ESTIMATED GFR IS NOT ACCURATE CREATININE CLEARANCE IN PREDICTING GLOMERULAR FILTRATION RATE. ESTIMATED GFR IS NOT APPLICABLE FOR DIALYSIS PATIENTS. CREATININE, RANDOM [id number] 06:51:00* Test Item Value Reference Range Interpretation Comme nts CREATININE URINE (BEAKER) (t est code = 375) 165.7 mg/dL Reference Range: No NormalsSODIUM, RANDOM [id number] 06:51:00* Test Item Value Reference Range Interpretation Comme nts SODIUM URINE (BEAKER) (test code = 243) 129 meq/L Reference Range: No [id number] 06:48:00* Test Item Value Reference Range Interpretation Comme nts MAGNESIUM (BEAKER) (test code = 627) 1.6 mg/dL 1.6-2.6 Specimen sligh tly hemolyzed TISSUE [id number] 17:00:00Surgical Pathology Report Case: [id number] Authorizing Provider: aJsper Pathak, Collected: 10/07/2018 [id number] Ordering Location: [address] Received: 10/07/2018 1233 Service Pa thologist: Bassam Wiley MD Specimens: A) - Duodenal, biopsy B) - Biopsy, Gastric C) - Biopsy, Esophagus, esophageal mass PART A DUODENAL BIOPSY:DUODENAL MUCOSA WITH ULCERATION AND REGENERATIVE CHANGES.THE VILLOUS ARCHITECTURE IS PREDOMINANTLY PRESERVED.NO INCREASED EPITHELIAL LYMPHOCYTES, GRANULOMAS, DYSPLASIA OR INVASIVE CARCINOMA SEEN.SPECIAL STAINS FOR FUNGAL ORGANISMS (GMS, PAS) ARE NEGATIVE.IMMUNOSTAINS FOR CMV, HSV1, AND HSV2 ARE NEGATIVE.PART B GASTRIC BIOPSY:ACTIVE CHRONIC GASTRITIS WITH ULCERATION AND REGENERATIVE CHANGES.HELICOBACTER LIKE ORGANISMS ARE IDENTIFIED BY WARTHIN STARRY STAIN.IMMUNOSTAINS FOR CMV, HSV1, AND HSV2 ARE NEGATIVE.NEGATIVE FOR INTESTINAL METAPLASIA, DYSPLASIA, OR INVASIVE CARCINOMA.PART C ESOPHAGEAL BIOPSY FOR SUSPECTED MASS:PREDOMINANTLY DENUDED SQUAMOUS MUCOSA WITH GRANULATION TISSUE WITH FIBRINOPURULENT DEBRIS.IMMUNOSTAIN FOR CMV, HSV1, HSV2 ARE NEGATIVE.SPECIAL STAINS FOR FUNGAL ORGANISMS (GMS, PAS) ARE NEGATIVE.SPECIAL STAINS FOR ACID FAST BACILLI (AFB) ARE NEGATIVE.NO MORPHOLOGIC OR IMMUNOPHENOTYPIC EVIDENCE OF MALIGNANCY.SEE DIAGNOSTIC COMMENT. Signing Pathologist Direct Phone Line: [phone] signed by Bassam Wiley MD on 10/11/2018 at 5:00 PMPART C: Histological sections demonstrate portions of squamous mucosa with granulation tissue and marked fibropurulent exudate. Immunohistochemical studies for Cam 5.2 performed on block C1 highlight the epithelial layer. Immunohistochemical studies for CD20/PAX5 demonstrate scattered B cells. CD3 and CD5 highlight scattered T cells. There is no abnormal expression of CD20 and CD5. CD30 immunostain is negative.There is no morphologic or immunophenotypic evidence of a malignancy in the tissue studies, however the sampled material may not be fully market survey representative. The studies for infectious agents are negative on histology, however correlation with microbiological studies is recommended. If there is a strong clinical concern for a malignancy, additionaltissue based studies may be necessary. [id number], [id number], [id number], [id number] findings on imaging test. Esophageal massDuodenum; stomach, esophagusAll specimens are received with patient information, date of and medical record number matching the requisition form. Part A: Received in formalin labeled as "duodenal biopsy" are multiple pink-fajardo soft tissue ranging from 0.2 to 0.4 cm. The specimen is submitted in toto in one cassette. Part B : Received in formalin labeled as "gastric biopsy" are multiple pieces of pink-fajardo soft tissue ranging from 0.1 to 0.3 cm, submitted in toto in one cassette. Part C labeled as "esophageal mass biopsy" are four pieces of white-fajardo soft tissue ranging from 0.2 to 0.3 cm, submitted in toto in one cassette. [place]/plPerformed. The interpretation of this case included the use of immunohistochemistry or special stains.BLOCK A1- GMS, PAS, CMV, HSV1, [id number] B1- WARTHIN STARRY, CMV, HSV1, [id number] C1- GMS, PAS, CMV, HSV1, HSV2, CD30, PAX5, CD20, CD5, CD3, CAM 5.2Control Slides Examined: In-house known positive controls were evaluated along with the test tissue. These control slides run alongside of the patients sample show appropriate staining.Internal positive and negative controls when available are evaluated Immunohistochemistry technicaltesting was performed at [facility] Pathology Laboratory where it was developed and its performance characteristics were determined. It has not been cleared or approved by the U.S. Food and Drug Administration. The FDA has determined that such clearance or approval is not necessary. The test is used for clinical purposes. It should not be regarded as investigational or for research. This laboratory is certified under the Clinical Laboratory Improvement Amendments of 1988 (CLIA-88) as qualified to perform high complexity clinical laboratory testing.CRYPTOCOCCAL [id number] 14:31:00* Test Item Value Reference Range Interpretation Comme nts CRYPTOCOCCAL ANTIGEN, SERUM (BEAKER) (test code = 1828) Negative Negative, Interference FL, ESOPH, SWALLOW FUNCTION, WITH CINE OR [id number] 10:04:00Reason for exam:->evidence of chronic aspiration on CT, hx of lower esophageal mass (likely cancer)FINAL REPORT Modified barium swallow. CLINICAL HISTORY: evidence of chronic aspiration on CT, hx of lower esophageal mass (likely cancer). COMPARISON STUDY: None available. FINDINGS: Under the direction of patient's speech pathologist, the patient ingested thin barium, thick barium, barium-coated crackers and barium pur\\XE9\\e. No evidence of laryngeal penetration or aspiration seen with any of the consistencies. Please refer to the speech pathology notes for further discussion. Fluoroscopy time: 2.6 minutes. One image. Signed: Tera Gonsalez MDReport Verified Date/Time: 0 10/11/2018 10:04:52 Reading Location: [address] Reading Room BASIC METABOLIC [id number] 07:40:00* Test Item Value Reference Range Interpretation Comme nts SODIUM (BEAKER) (test code = 381) 128 meq/L 136-145 L POTASSIUM (BEAKER) (test code = 379) 4.0 meq/L 3.5-5.1 CHLORIDE (BEAKER) (test code = 382) 97 meq/L 98-107 L CO2 (BEAKER) (test code = 355) 21 meq/L 22-29 L BLOOD UREA NITROGEN (BEAKER) (test code = 354) 15 mg/dL 7-21 CREATININE (BEAKER) (test code = 358) 0.65 mg/dL 0.57-1.25 GLUCOSE RANDOM (BEAKER) (test code = 652) 91 mg/dL 70-105 CALCIUM (BEAKER) (test code = 697) 7.9 mg/dL 8.4-10.2 L EGFR (BEAKER) (test code = 1092) 122 mL/min/1.73 sq m ESTIMATED GFR IS NOT ACCURATE CREATININE CLEARANCE IN PREDICTING GLOMERULAR FILTRATION RATE. ESTIMATED GFR IS NOT APPLICABLE FOR DIALYSIS PATIENTS. [id number] 07:37:00* Test Item Value Reference Range Interpretation Comme nts MAGNESIUM (BEAKER) (test cod e = 627) 1.7 mg/dL 1.6-2.6 CBC W/PLT COUNT & AUTO [id number] 07:33:00* Test Item Value Reference Range Interpretation Comme nts WHITE BLOOD CELL COUNT (BEAK ER) (test code = 775) 14.1 K/ L 3.5-10.5 H RED BLOOD CELL COUNT (BEAKER ) (test code = 761) 3.99 M/ L 4.63-6.08 L HEMOGLOBIN (BEAKER) (test co de = 410) 10.9 GM/DL 13.7-17.5 L HEMATOCRIT (BEAKER) (test co de = 411) 33.9 % 40.1-51.0 L MEAN CORPUSCULAR VOLUME (BAO KER) (test code = 753) 85.0 fL 79.0-92.2 MEAN CORPUSCULAR HEMOGLOBIN (BEAKER) (test code = 751) 27.3 pg 25.7-32.2 MEAN CORPUSCULAR HEMOGLOBIN CONC (BEAKER) (test code = 752) 32.2 GM/DL 32.3-36.5 L RED CELL DISTRIBUTION WIDTH (BEAKER) (test code = 412) 13.0 % 11.6-14.4 PLATELET COUNT (BEAKER) (shaunna t code = 756) 350 K/CU MM 150-450 MEAN PLATELET VOLUME (BEAKER ) (test code = 754) 9.4 fL 9.4-12.4 NUCLEATED RED BLOOD CELLS (BEAKER) (test code = 413) 0 /100 WBC 0-0 NEUTROPHILS RELATIVE PERCENT (BEAKER) (test code = 429) 83 % LYMPHOCYTES RELATIVE PERCENT (BEAKER) (test code = 430) 6 % MONOCYTES RELATIVE PERCENT (BEAKER) (test code = 431) 10 % EOSINOPHILS RELATIVE PERCENT (BEAKER) (test code = 432) 0 % BASOPHILS RELATIVE PERCENT (BEAKER) (test code = 437) 1 % NEUTROPHILS ABSOLUTE COUNT (BEAKER) (test code = 670) 11.60 K/ L 1.78-5.38 H LYMPHOCYTES ABSOLUTE COUNT (BEAKER) (test code = 414) 0.85 K/ L 1.32-3.57 L MONOCYTES ABSOLUTE COUNT (BE IVA) (test code = 415) 1.38 K/ L 0.30-0.82 H EOSINOPHILS ABSOLUTE COUNT (BEAKER) (test code = 416) 0.03 K/ L 0.04-0.54 L BASOPHILS ABSOLUTE COUNT (BE IVA) (test code = 417) 0.07 K/ L 0.01-0.08 IMMATURE GRANULOCYTES-RELATI VE PERCENT (BEAKER) (test code = 2801) 1 % 0-1 HIV-1 ANTIGEN WITH HIV-1/2 [id number] 06:26:00* Test Item Value Reference Range Interpretation Comme nts HIV-1 ANTIGEN WITH HIV 1\\T\\2 ANTIBODY (2) (BEAKER) (test code = 2586) Nonreactive Nonreactive [id number] 06:01:00* Test Item Value Reference Range Interpretation Comme nts MAGNESIUM (BEAKER) (test cod e = 627) 1.6 mg/dL 1.6-2.6 BASIC METABOLIC [id number] 06:01:00* Test Item Value Reference Range Interpretation Comme nts SODIUM (BEAKER) (test code = 381) 132 meq/L 136-145 L POTASSIUM (BEAKER) (test code = 379) 3.8 meq/L 3.5-5.1 CHLORIDE (BEAKER) (test code = 382) 99 meq/L 98-107 CO2 (BEAKER) (test code = 355) 21 meq/L 22-29 L BLOOD UREA NITROGEN (BEAKER) (test code = 354) 14 mg/dL 7-21 CREATININE (BEAKER) (test code = 358) 0.66 mg/dL 0.57-1.25 GLUCOSE RANDOM (BEAKER) (test code = 652) 97 mg/dL 70-105 CALCIUM (BEAKER) (test code = 697) 8.4 mg/dL 8.4-10.2 EGFR (BEAKER) (test code = 1092) 120 mL/min/1.73 sq m ESTIMATED GFR IS NOT ACCURATE CREATININE CLEARANCE IN PREDICTING GLOMERULAR FILTRATION RATE. ESTIMATED GFR IS NOT APPLICABLE FOR DIALYSIS PATIENTS. HEPATIC FUNCTION [id number] 06:01:00* Test Item Value Reference Range Interpretation Comme nts TOTAL PROTEIN (BEAKER) (test code = 770) 5.6 gm/dL 6.0-8.3 L ALBUMIN (BEAKER) (test code = 1145) 2.6 g/dL 3.5-5.0 L BILIRUBIN TOTAL (BEAKER) (te st code = 377) 0.5 mg/dL 0.2-1.2 BILIRUBIN DIRECT (BEAKER) (t est code = 706) 0.3 mg/dL 0.1-0.5 ALKALINE PHOSPHATASE (BEAKER ) (test code = 346) 109 U/L 40-150 AST (SGOT) (BEAKER) (test co de = 353) 37 U/L 5-34 H ALT (SGPT) (BEAKER) (test co de = 347) 52 U/L 6-55 LACTATE DEHYDROGENASE (LDH)2018-10-10 06:01:00* Test Item Value Reference Range Interpretation Comme nts LACTATE DEHYDROGENASE (BEAKE R) (test code = 635) 237 U/L 125-220 H CBC W/PLT COUNT & AUTO [id number] 05:32:00* Test Item Value Reference Range Interpretation Comme nts WHITE BLOOD CELL COUNT (BEAK ER) (test code = 775) 13.8 K/ L 3.5-10.5 H RED BLOOD CELL COUNT (BEAKER ) (test code = 761) 4.12 M/ L 4.63-6.08 L HEMOGLOBIN (BEAKER) (test co de = 410) 11.2 GM/DL 13.7-17.5 L HEMATOCRIT (BEAKER) (test co de = 411) 34.4 % 40.1-51.0 L MEAN CORPUSCULAR VOLUME (BAO KER) (test code = 753) 83.5 fL 79.0-92.2 MEAN CORPUSCULAR HEMOGLOBIN (BEAKER) (test code = 751) 27.2 pg 25.7-32.2 MEAN CORPUSCULAR HEMOGLOBIN CONC (BEAKER) (test code = 752) 32.6 GM/DL 32.3-36.5 RED CELL DISTRIBUTION WIDTH (BEAKER) (test code = 412) 12.8 % 11.6-14.4 PLATELET COUNT (BEAKER) (shaunna t code = 756) 373 K/CU MM 150-450 MEAN PLATELET VOLUME (BEAKER ) (test code = 754) 9.5 fL 9.4-12.4 NUCLEATED RED BLOOD CELLS (BEAKER) (test code = 413) 0 /100 WBC 0-0 NEUTROPHILS RELATIVE PERCENT (BEAKER) (test code = 429) 84 % LYMPHOCYTES RELATIVE PERCENT (BEAKER) (test code = 430) 6 % MONOCYTES RELATIVE PERCENT (BEAKER) (test code = 431) 9 % EOSINOPHILS RELATIVE PERCENT (BEAKER) (test code = 432) 0 % BASOPHILS RELATIVE PERCENT (BEAKER) (test code = 437) 0 % NEUTROPHILS ABSOLUTE COUNT (BEAKER) (test code = 670) 11.67 K/ L 1.78-5.38 H LYMPHOCYTES ABSOLUTE COUNT (BEAKER) (test code = 414) 0.81 K/ L 1.32-3.57 L MONOCYTES ABSOLUTE COUNT (BE IVA) (test code = 415) 1.19 K/ L 0.30-0.82 H EOSINOPHILS ABSOLUTE COUNT (BEAKER) (test code = 416) 0.02 K/ L 0.04-0.54 L BASOPHILS ABSOLUTE COUNT (BE IVA) (test code = 417) 0.05 K/ L 0.01-0.08 IMMATURE GRANULOCYTES-RELATI VE PERCENT (BEAKER) (test code = 2801) 1 % 0-1 RAD, HAND, 3 VIEWS, [id number] 11:21:00Reason for exam:->index and middle finger swellingFINAL REPORT Three views of the right hand without comparison. IMPRESSION: There is diffuse soft tissue swelling without fracture or traumatic malalignment visualized. 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 There is no bony e rosion or destruction. No radiopaque foreign body is seen. Signed: Nate Phipps MDReport Verified Date/Time: 10/09/2018 11:21:36 Reading Location: [facility] B1 C013X Ortho Consult Reading Room Electronicallysigned by: NATE PHIPPS M.D. on 10/09/2018 11:21 AMCBC W/PLT COUNT & AUTO [id number] 06:23:00* Test Item Value Reference Range Interpretation Comme nts WHITE BLOOD CELL COUNT (BEAK ER) (test code = 775) 15.8 K/ L 3.5-10.5 H RED BLOOD CELL COUNT (BEAKER ) (test code = 761) 4.06 M/ L 4.63-6.08 L HEMOGLOBIN (BEAKER) (test co de = 410) 11.1 GM/DL 13.7-17.5 L HEMATOCRIT (BEAKER) (test co de = 411) 34.8 % 40.1-51.0 L MEAN CORPUSCULAR VOLUME (BAO KER) (test code = 753) 85.7 fL 79.0-92.2 MEAN CORPUSCULAR HEMOGLOBIN (BEAKER) (test code = 751) 27.3 pg 25.7-32.2 MEAN CORPUSCULAR HEMOGLOBIN CONC (BEAKER) (test code = 752) 31.9 GM/DL 32.3-36.5 L RED CELL DISTRIBUTION WIDTH (BEAKER) (test code = 412) 12.8 % 11.6-14.4 PLATELET COUNT (BEAKER) (shaunna t code = 756) 335 K/CU MM 150-450 MEAN PLATELET VOLUME (BEAKER ) (test code = 754) 9.6 fL 9.4-12.4 NUCLEATED RED BLOOD CELLS (BEAKER) (test code = 413) 0 /100 WBC 0-0 NEUTROPHILS RELATIVE PERCENT (BEAKER) (test code = 429) 86 % LYMPHOCYTES RELATIVE PERCENT (BEAKER) (test code = 430) 5 % MONOCYTES RELATIVE PERCENT (BEAKER) (test code = 431) 8 % EOSINOPHILS RELATIVE PERCENT (BEAKER) (test code = 432) 0 % BASOPHILS RELATIVE PERCENT (BEAKER) (test code = 437) 0 % NEUTROPHILS ABSOLUTE COUNT (BEAKER) (test code = 670) 13.48 K/ L 1.78-5.38 H LYMPHOCYTES ABSOLUTE COUNT (BEAKER) (test code = 414) 0.81 K/ L 1.32-3.57 L MONOCYTES ABSOLUTE COUNT (BE IVA) (test code = 415) 1.32 K/ L 0.30-0.82 H EOSINOPHILS ABSOLUTE COUNT (BEAKER) (test code = 416) 0.03 K/ L 0.04-0.54 L BASOPHILS ABSOLUTE COUNT (BE VIA) (test code = 417) 0.04 K/ L 0.01-0.08 IMMATURE GRANULOCYTES-RELATI VE PERCENT (BEAKER) (test code = 2801) 1 % 0-1 [id number] 05:53:00* Test Item Value Reference Range Interpretation Comme nts PHOSPHORUS (BEAKER) (test co de = 604) 2.4 mg/dL 2.3-4.7 [id number] 05:53:00* Test Item Value Reference Range Interpretation Comme nts MAGNESIUM (BEAKER) (test cod e = 627) 1.4 mg/dL 1.6-2.6 L BASIC METABOLIC [id number] 05:53:00* Test Item Value Reference Range Interpretation Comme nts SODIUM (BEAKER) (test code = 381) 130 meq/L 136-145 L POTASSIUM (BEAKER) (test code = 379) 4.0 meq/L 3.5-5.1 CHLORIDE (BEAKER) (test code = 382) 100 meq/L 98-107 CO2 (BEAKER) (test code = 355) 18 meq/L 22-29 L BLOOD UREA NITROGEN (BEAKER) (test code = 354) 13 mg/dL 7-21 CREATININE (BEAKER) (test code = 358) 0.69 mg/dL 0.57-1.25 GLUCOSE RANDOM (BEAKER) (test code = 652) 83 mg/dL 70-105 CALCIUM (BEAKER) (test code = 697) 8.5 mg/dL 8.4-10.2 EGFR (BEAKER) (test code = 1092) 114 mL/min/1.73 sq m ESTIMATED GFR IS NOT ACCURATE CREATININE CLEARANCE IN PREDICTING GLOMERULAR FILTRATION RATE. ESTIMATED GFR IS NOT APPLICABLE FOR DIALYSIS PATIENTS. LACTIC ACID, [id number] 05:52:00* Test Item Value Reference Range Interpretation Comme nts LACTATE BLOOD VENOUS (2) (BE IVA) (test code = 2872) 0.9 mmol/L 0.5-2.2 PROTHROMBIN [id number] 05:23:00* Test Item Value Reference Range Interpretation Comme nts PROTIME (BEAKER) (test code = 759) 15.2 seconds 11.7-14.7 H INR (BEAKER) (test code = 370) 1.3 <=5.9 RECOMMENDED COUMADIN/WARFARIN INR THERAPY RANGESSTANDARD DOSE: 2.0 - 3.0 Includes: PROPHYLAXIS for venous thrombosis, systemic embolization; TREATMENT for venous thrombosis and/or pulmonary embolus.HIGH RISK: Target INR is 2.5-3.5 for patients with mechanical heart valves.CT, CHEST, WITH [id number] 08:56:00FINAL REPORT INDICATION: Esophageal cancer. Staging CT exam. COMPARISON:None. TECHNIQUE: Chest CT exam WITH intravenous contrast. The exam was performed according to our department dose-optimization protocol, which includes automated exposure control, adjustments of mA and kV according to patient size. Iterative reconstructions are also sometimes employed. FINDINGS:There is circumferential wall thickening of the lower third of the esophagus over a 6 cm segment with wall thickness measuring 8 mm. There is mediastinal, right hilar, and left supraclavicular lymphadenopathy. Two contiguous lower periesophageal lymph nodes (coronal image 54) measure 4.5 x 2.4 cm. Several smaller periesophageal and paratracheal lymph nodes extend from the level of the diaphragmatic alicja to the thoracic inlet. Right hilar enlarged lymph node measures 2.5 x 2.5 cm coronal plane. Left supraclavicular valerie mass measures 4.3 x 3.7 cm. Three enlarged anterior mediastinal (prevascular) lymph n odes one of which is coarsely calcified. The largest measures 2.2 x 1.7 cm. Lungs demonstrate innumerable micronodules predominantly posteriorly in the right upper lobe and right superior segment. There is a tiny left pleural effusion. No suspicious pleural nodularity. Central airways are clear. Heart is normal in size and there is no pericardial effusion. In the right adrenal gland there is a 2.3 x 1.8 x 1.6 cm heterogeneously enhancing nodule. No suspicious osseous lesion is demonstrated. Sternoclavicular degenerative change severe on the right where there is extensive subchondral sclerosis. IMPRESSION: Lower esophageal mass with mediastinal, right hilar, and left supraclavicular metastatic disease. Right adrenal heterogeneous nodule highly suspicious for additional metastasis. Pulmonary micronodules predominantly in the posterior right upper lobe and right superior segment, favor chronic aspiration pneumonitis over metastases. Signed: João Vergara MDReport Verified Date/Time: 10/08/2018 08:56:39 Reading Location: [facility] C013X Ortho Consult Reading Room [id number] 07:41:00* Test Item Value Reference Range Interpretation Comme nts PHOSPHORUS (BEAKER) (test co de = 604) 2.3 mg/dL 2.3-4.7 [id number] 07:41:00* Test Item Value Reference Range Interpretation Comme nts MAGNESIUM (BEAKER) (test cod e = 627) 1.6 mg/dL 1.6-2.6 BASIC METABOLIC [id number] 07:41:00* Test Item Value Reference Range Interpretation Comme nts SODIUM (BEAKER) (test code = 381) 129 meq/L 136-145 L POTASSIUM (BEAKER) (test code = 379) 4.1 meq/L 3.5-5.1 CHLORIDE (BEAKER) (test code = 382) 99 meq/L 98-107 CO2 (BEAKER) (test code = 355) 22 meq/L 22-29 BLOOD UREA NITROGEN (BEAKER) (test code = 354) 12 mg/dL 7-21 CREATININE (BEAKER) (test code = 358) 0.71 mg/dL 0.57-1.25 GLUCOSE RANDOM (BEAKER) (test code = 652) 92 mg/dL 70-105 CALCIUM (BEAKER) (test code = 697) 8.1 mg/dL 8.4-10.2 L EGFR (BEAKER) (test code = 1092) 110 mL/min/1.73 sq m ESTIMATED GFR IS NOT ACCURATE CREATININE CLEARANCE IN PREDICTING GLOMERULAR FILTRATION RATE. ESTIMATED GFR IS NOT APPLICABLE FOR DIALYSIS PATIENTS. PROTHROMBIN [id number] 07:04:00* Test Item Value Reference Range Interpretation Comme nts PROTIME (BEAKER) (test code = 759) 15.0 seconds 11.7-14.7 H INR (BEAKER) (test code = 370) 1.2 <=5.9 RECOMMENDED COUMADIN/WARFARIN INR THERAPY RANGESSTANDARD DOSE: 2.0 - 3.0 Includes: PROPHYLAXIS for venous thrombosis, systemic embolization; TREATMENT for venous thrombosis and/or pulmonary embolus.HIGH RISK: Target INR is 2.5-3.5 for patients with mechanical heart valves.LACTIC ACID, [id number] 06:47:00 * Test Item Value Reference Range Interpretation Comme nts LACTATE BLOOD VENOUS (2) (BEAKER) (test code = 2872) 1.0 mmol/L 0.5-2.2 Specimen moderat pete hemolyzed [id number] 00:17:00* Test Item Value Reference Range Interpretation Comme nts PROCALCITONIN (BEAKER) (test code = 3036) 0.27 ng/mL <0.05 H SEPSIS RISK (ng/mL)Low: 0.05-0.50Intermediate: 0.51-2.00High: >=2.01LACTIC ACID, [id number] 23:54:00* Test Item Value Reference Range Interpretation Comme nts LACTATE BLOOD VENOUS (2) (BE IVA) (test code = 2872) 0.8 mmol/L 0.5-2.2 LACTIC ACID, [id number] 21:54:00* Test Item Value Reference Range Interpretation Comme nts LACTATE BLOOD VENOUS (2) (BE IVA) (test code = 2872) 1.1 mmol/L 0.5-2.2 URINALYSIS W/ REFLEX URINE [id number] 15:32:00* Test Item Value Reference Range Interpretation Comme nts COLOR (BEAKER) (test code = 470) Yellow CLARITY (BEAKER) (test code = 469) Clear SPECIFIC GRAVITY UA (BEAKER) (test code = 468) 1.027 1.001-1.035 PH UA (BEAKER) (test code = 467) 6.0 5.0-8.0 PROTEIN UA (BEAKER) (test co de = 464) 50 mg/dL Negative A GLUCOSE UA (BEAKER) (test co de = 365) Negative Negative KETONES UA (BEAKER) (test co de = 371) 100 mg/dL Negative A BILIRUBIN UA (BEAKER) (test code = 462) Positive Negative A BLOOD UA (BEAKER) (test code = 461) Negative Negative NITRITE UA (BEAKER) (test co de = 465) Negative Negative LEUKOCYTE ESTERASE UA (BEAKE R) (test code = 466) Trace Negative A UROBILINOGEN UA (BEAKER) (te st code = 463) 4.0 mg/dL 0.2-1.0 H RBC UA (BEAKER) (test code = 519) 1 /HPF WBC UA (BEAKER) (test code = 520) 5 /HPF MUCUS (BEAKER) (test code = 1574) Many HYALINE CASTS (BEAKER) (test code = 514) 2 /LPF SOURCE(BEAKER) (test code = 2795) T4, [id number] 08:09:00* Test Item Value Reference Range Interpretation Comme nts FREE T4 (BEAKER) (test code = 655) 0.89 ng/dL 0.70-1.48 [id number] 07:31:00* Test Item Value Reference Range Interpretation Comme nts FERRITIN (BEAKER) (test code = 361) 2569 ng/mL 5-275 H TSH/FREE T4 IF [id number] 07:31:00* Test Item Value Reference Range Interpretation Comme nts THYROID STIMULATING HORMONE (BEAKER) (test code = 772) 5.37 uIU/mL 0.35-4.94 H VITAMIN B12 AND [id number] 07:11:00* Test Item Value Reference Range Interpretation Comme nts VITAMIN B12 (BEAKER) (test c ode = 774) 1102 pg/mL 213-816 H FOLATE (BEAKER) (test code = 362) 9.6 ng/mL >=7.0 IRON, TIBC, % SAT. (WITHOUT FERRITIN)2018-10-07 06:43:00* Test Item Value Reference Range Interpretation Comme nts IRON (BEAKER) (test code = 547) 16.0 ug/dL 40.0-160.0 L TOTAL IRON BINDING CAPACITY (BEAKER) (test code = 769) 146 ug/dL 250-450 L IRON % SATURATION (2) (BEAKE R) (test code = 2590) 11 % 20-55 L [id number] 06:40:00* Test Item Value Reference Range Interpretation Comme nts PHOSPHORUS (BEAKER) (test co de = 604) 2.6 mg/dL 2.3-4.7 [id number] 06:40:00* Test Item Value Reference Range Interpretation Comme nts MAGNESIUM (BEAKER) (test cod e = 627) 1.7 mg/dL 1.6-2.6 BASIC METABOLIC [id number] 06:40:00* Test Item Value Reference Range Interpretation Comme nts SODIUM (BEAKER) (test code = 381) 134 meq/L 136-145 L POTASSIUM (BEAKER) (test code = 379) 4.3 meq/L 3.5-5.1 CHLORIDE (BEAKER) (test code = 382) 103 meq/L 98-107 CO2 (BEAKER) (test code = 355) 19 meq/L 22-29 L BLOOD UREA NITROGEN (BEAKER) (test code = 354) 15 mg/dL 7-21 CREATININE (BEAKER) (test code = 358) 0.73 mg/dL 0.57-1.25 GLUCOSE RANDOM (BEAKER) (test code = 652) 90 mg/dL 70-105 CALCIUM (BEAKER) (test code = 697) 8.8 mg/dL 8.4-10.2 EGFR (BEAKER) (test code = 1092) 107 mL/min/1.73 sq m ESTIMATED GFR IS NOT ACCURATE CREATININE CLEARANCE IN PREDICTING GLOMERULAR FILTRATION RATE. ESTIMATED GFR IS NOT APPLICABLE FOR DIALYSIS PATIENTS. CBC W/PLT COUNT & AUTO [id number] 06:36:00* Test Item Value Reference Range Interpretation Comme nts WHITE BLOOD CELL COUNT (BEAK ER) (test code = 775) 17.2 K/ L 3.5-10.5 H RED BLOOD CELL COUNT (BEAKER ) (test code = 761) 4.53 M/ L 4.63-6.08 L HEMOGLOBIN (BEAKER) (test co de = 410) 12.5 GM/DL 13.7-17.5 L HEMATOCRIT (BEAKER) (test co de = 411) 39.2 % 40.1-51.0 L MEAN CORPUSCULAR VOLUME (BAO KER) (test code = 753) 86.5 fL 79.0-92.2 MEAN CORPUSCULAR HEMOGLOBIN (BEAKER) (test code = 751) 27.6 pg 25.7-32.2 MEAN CORPUSCULAR HEMOGLOBIN CONC (BEAKER) (test code = 752) 31.9 GM/DL 32.3-36.5 L RED CELL DISTRIBUTION WIDTH (BEAKER) (test code = 412) 13.0 % 11.6-14.4 PLATELET COUNT (BEAKER) (shaunna t code = 756) 357 K/CU MM 150-450 MEAN PLATELET VOLUME (BEAKER ) (test code = 754) 9.5 fL 9.4-12.4 NUCLEATED RED BLOOD CELLS (BEAKER) (test code = 413) 0 /100 WBC 0-0 NEUTROPHILS RELATIVE PERCENT (BEAKER) (test code = 429) 83 % LYMPHOCYTES RELATIVE PERCENT (BEAKER) (test code = 430) 8 % MONOCYTES RELATIVE PERCENT (BEAKER) (test code = 431) 9 % EOSINOPHILS RELATIVE PERCENT (BEAKER) (test code = 432) 0 % BASOPHILS RELATIVE PERCENT (BEAKER) (test code = 437) 0 % NEUTROPHILS ABSOLUTE COUNT (BEAKER) (test code = 670) 14.18 K/ L 1.78-5.38 H LYMPHOCYTES ABSOLUTE COUNT (BEAKER) (test code = 414) 1.33 K/ L 1.32-3.57 MONOCYTES ABSOLUTE COUNT (BE IVA) (test code = 415) 1.47 K/ L 0.30-0.82 H EOSINOPHILS ABSOLUTE COUNT (BEAKER) (test code = 416) 0.01 K/ L 0.04-0.54 L BASOPHILS ABSOLUTE COUNT (BE IVA) (test code = 417) 0.06 K/ L 0.01-0.08 IMMATURE GRANULOCYTES-RELATI VE PERCENT (BEAKER) (test code = 2801) 1 % 0-1 PROTHROMBIN TIME/[id number] 06:15:00* Test Item Value Reference Range Interpretation Comme nts PROTIME (BEAKER) (test code = 759) 14.3 seconds 11.7-14.7 INR (BEAKER) (test code = 370) 1.2 <=5.9 RECOMMENDED COUMADIN/WARFARIN INR THERAPY RANGESSTANDARD DOSE: 2.0 - 3.0 Includes: PROPHYLAXIS for venous thrombosis, systemic embolization; TREATMENT for venous thrombosis and/or pulmonary embolus.HIGH RISK: Target INR is 2.5-3.5 for patients with mechanical heart valves.COMPREHENSIVE METABOLIC PANEL 2018-09-27 14:09:00* Test Item Value Reference Range Interpretation Comme nts SODIUM (test code = NA) 132 mEq/L 134-147 L POTASSIUM (test code = K) 4.2 mEq/L 3.4-5.0 N CHLORIDE (test code = CL) 102 mEq/L 100-108 N CARBON DIOXIDE (test code = CO2) 24 mEq/L 21-33 N ANION GAP (test code = GAP) 10 0-20 N GLUCOSE (test code = GLU) 121 mg/dL 70-110 H BLOOD UREA NITROGEN (test code = BUN) 12 mg/dL 7-18 N GLOMERULAR FILTRATION RATE (test code = GFR) 74.1 80-90 L Units of measure = ml/min/1.73 m2 CREATININE (test code = CREAT) 1.0 mg/dL 0.6-1.3 N TOTAL PROTEIN (test code = PROT) 6.2 g/dL 6.4-8.2 L ALBUMIN (test code = ALB) 2.30 g/dL 3.4-5.0 L CALCIUM (test code = CA) 8.1 mg/dL 8.0-10.5 N BILIRUBIN TOTAL (test code = BILT) 0.50 mg/dL 0.0-1.0 N SGOT/AST (test code = AST) 46 IUnit/L 15-37 H SGPT/ALT (test code = ALT) 76 IUnit/L 15-65 H ALKALINE PHOSPHATASE TOTAL (test code = ALKP) 128 IUnit/L 20-125 H COMPREHENSIVE METABOLIC [id number] 14:05:00* Test Item Value Reference Range Interpretation Comme nts SODIUM (test code = NA) 132 mEq/L 134-147 L POTASSIUM (test code = K) 4.2 mEq/L 3.4-5.0 N CHLORIDE (test code = CL) 102 mEq/L 100-108 N CARBON DIOXIDE (test code = CO2) 24 mEq/L 21-33 N ANION GAP (test code = GAP) 10 0-20 N GLUCOSE (test code = GLU) 121 mg/dL 70-110 H BLOOD UREA NITROGEN (test code = BUN) 12 mg/dL 7-18 N GLOMERULAR FILTRATION RATE (test code = GFR) 74.1 80-90 L Units of measure = ml/min/1.73 m2 CREATININE (test code = CREAT) 1.0 mg/dL 0.6-1.3 N TOTAL PROTEIN (test code = PROT) g/dL 6.4-8.2 ALBUMIN (test code = ALB) 2.30 g/dL 3.4-5.0 L CALCIUM (test code = CA) 8.1 mg/dL 8.0-10.5 N BILIRUBIN TOTAL (test code = BILT) mg/dL 0.0-1.0 SGOT/AST (test code = AST) 46 IUnit/L 15-37 H SGPT/ALT (test code = ALT) 76 IUnit/L 15-65 H ALKALINE PHOSPHATASE TOTAL (test code = ALKP) IUnit/L 20-125 CBC W/AUTO [id number] 13:55:00* Test Item Value Reference Range Interpretation Comme nts WHITE BLOOD CELL (test code = WBC) 14.28 x10 3/uL 4.5-11.0 H RED BLOOD CELL (test code = RBC) 4.54 x10 6/uL 4.00-5.60 N HEMOGLOBIN (test code = HGB) 12.7 g/dL 12.5-16.9 N HEMATOCRIT (test code = HCT) 39.6 % 37.5-50.7 N MEAN CELL VOLUME (test code = MCV) 87.2 fL 81.0-99.0 N MEAN CELL HGB (test code = MCH) 28.0 pg 27.0-33.0 N MEAN CELL HGB CONCETRATION (test code = MCHC) 32.1 g/dL 33.0-37.0 L RED CELL DISTRIBUTION WIDTH CV (test code = RDW) 13.0 % 11.5-14.5 N RED CELL DISTRIBUTION WIDTH SD (test code = RDW-SD) 41.3 fL 37.0-54.0 N PLATELET COUNT (test code = PLT) 378 x10 3/uL 150-400 N MEAN PLATELET VOLUME (test code = MPV) 9.2 fL 7.0-9.0 H NEUTROPHIL % (test code = NT%) 75.7 % 56.0-77.0 N IMMATURE GRANULOCYTE % (test code = IG%) 1.1 % 0.0-2.0 N LYMPHOCYTE % (test code = LY%) 10.8 % 14.0-32.0 L MONOCYTE % (test code = MO%) 10.7 % 4.8-9.0 H EOSINOPHIL % (test code = EO%) 1.1 % 0.3-3.7 N BASOPHIL % (test code = BA%) 0.6 % 0.0-2.0 N NUCLEATED RBC % (test code = NRBC%) 0.0 % 0-0 N NEUTROPHIL # (test code = NT#) 10.82 x10 3/uL 2.0-7.6 H IMMATURE GRANULOCYTE # (test code = IG#) 0.16 x10 3/uL 0.00-0.03 H LYMPHOCYTE # (test code = LY#) 1.54 x10 3/uL 1.0-3.8 N MONOCYTE # (test code = MO#) 1.53 x10 3/uL 0.1-0.8 H EOSINOPHIL # (test code = EO#) 0.15 x10 3/uL 0.0-0.2 N BASOPHIL # (test code = BA#) 0.08 x10 3/uL 0.0-0.2 N NUCLEATED RBC # (test code = NRBC#) 0.00 x10 3/uL 0.0-0.1 N MANUAL DIFF REQUIRED (test code = MDIFF) NO LACTIC ACID [id number] 14:05:00* Test Item Value Reference Range Interpretation Comme nts LACTIC ACID POC (test code = LACTP) 0.7 MMOL/L 0.90-1.70 L Performed by certified mva still operator at [facility] PROTHROMBIN [id number] 13:52:00* Test Item Value Reference Range Interpretation Comme nts PROTHROMBIN TIME PATIENT (test code = PTP) 12.9 SECONDS 9.3-12.9 N INTERNATIONAL NORMAL RATIO (test code = INR) 1.1 0.8-1.2 N TARGET INR BY INDICATION Indication INR1. Prophylaxis of venous thrombosis [...] Infarction (to prevent recurrent infarct). THROMBOPLASTIN TIME [id number] 13:52:00* Test Item Value Reference Range Interpretation Comme nts THROMBOPLASTIN TIME PARTIAL (test code = PTT) 29.8 Seconds 25.0-39.5 N Therapeutic Rang e: 50.4 - 88.3 Seconds Effective 09/14/2018 - XR HAND 3 + V [id number] 13:46:00FAX: Gonzalez Gerber Martin III [phone] Echo: St: REG FAX: Mariza Gallego [phone] -- Name: MANJIT CASTELLANO [facility] : 1950 Age/S: 68/M [address] [place] [address] Unit #: [id number] Loc: [place] [address] Phys: Mariza Gallego Acct: [id number] Dis Date: Status: REG ER PHONE #: [phone] Exam Date: 09/25/2018 1319 FAX #: [phone] Reason: pain swelling hand EXAMS: CPT CODE: [id number] XR HAND 3 + [place] RT [address]1969 RIGHT HAND SERIES 09/25/2018 AT 1308 HOURS. CLINICAL HISTORY: Right hand pain and swelling. COMPARISONS: None. FINDINGS: 3 AP, lateral and oblique views of the right hand were obtained showing diffuse circumferential soft tissue swelling on a background of diffuse osteopenia and moderate to severe polyarticular osteoarthritis. No fracture, dislocation or destructive bone lesions. No bony erosions. No soft tissue calcinosis, air or radiopaque foreign body. IMPRESSION: 1. Diffuse soft tissue edema and or cellulitis involving the right hand. 2. 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 SL: CY-H at 1346 Reported and signed by: Ham Xiong M.D. CC: Gerber Martin III, MD; Mariza Gallego Technologist: RT Cony(R) Trnscrd Date/Time/By: 09/25/2018 ([id number]) : By: [email or web address] Orig Print D/T: S: 09/25/2018 (9165) PAGE 1 Signed ReportBASIC METABOLIC [id number] 13:45:00* Test Item Value Reference Range Interpretation Comme nts SODIUM (test code = NA) 136 mEq/L 134-147 N POTASSIUM (test code = K) 3.9 mEq/L 3.4-5.0 N CHLORIDE (test code = CL) 104 mEq/L 100-108 N CARBON DIOXIDE (test code = CO2) 27 mEq/L 21-33 N ANION GAP (test code = GAP) 9 0-20 N GLUCOSE (test code = GLU) 158 mg/dL 70-110 H BLOOD UREA NITROGEN (test code = BUN) 21 mg/dL 7-18 H GLOMERULAR FILTRATION RATE (test code = GFR) 95.8 80-90 H Units of measure = ml/min/1.73 m2 CREATININE (test code = CREAT) 0.8 mg/dL 0.6-1.3 N CALCIUM (test code = CA) 8.7 mg/dL 8.0-10.5 N URIC [id number] 13:45:00* Test Item Value Reference Range Interpretation Comme nts URIC ACID (test code = URIC) 4.4 mg/dL 2.6-7.2 N CBC W/AUTO [id number] 13:38:00* Test Item Value Reference Range Interpretation Comme nts WHITE BLOOD CELL (test code = WBC) 11.82 x10 3/uL 4.5-11.0 H RED BLOOD CELL (test code = RBC) 4.59 x10 6/uL 4.00-5.60 N HEMOGLOBIN (test code = HGB) 12.7 g/dL 12.5-16.9 N HEMATOCRIT (test code = HCT) 38.7 % 37.5-50.7 N MEAN CELL VOLUME (test code = MCV) 84.3 fL 81.0-99.0 N MEAN CELL HGB (test code = MCH) 27.7 pg 27.0-33.0 N MEAN CELL HGB CONCETRATION (test code = MCHC) 32.8 g/dL 33.0-37.0 L RED CELL DISTRIBUTION WIDTH CV (test code = RDW) 12.6 % 11.5-14.5 N RED CELL DISTRIBUTION WIDTH SD (test code = RDW-SD) 38.6 fL 37.0-54.0 N PLATELET COUNT (test code = PLT) 374 x10 3/uL 150-400 N MEAN PLATELET VOLUME (test code = MPV) 9.4 fL 7.0-9.0 H NEUTROPHIL % (test code = NT%) 74.1 % 56.0-77.0 N IMMATURE GRANULOCYTE % (test code = IG%) 1.5 % 0.0-2.0 N LYMPHOCYTE % (test code = LY%) 12.9 % 14.0-32.0 L MONOCYTE % (test code = MO%) 9.6 % 4.8-9.0 H EOSINOPHIL % (test code = EO%) 1.4 % 0.3-3.7 N BASOPHIL % (test code = BA%) 0.5 % 0.0-2.0 N NUCLEATED RBC % (test code = NRBC%) 0.0 % 0-0 N NEUTROPHIL # (test code = NT#) 8.75 x10 3/uL 2.0-7.6 H IMMATURE GRANULOCYTE # (test code = IG#) 0.18 x10 3/uL 0.00-0.03 H LYMPHOCYTE # (test code = LY#) 1.52 x10 3/uL 1.0-3.8 N MONOCYTE # (test code = MO#) 1.14 x10 3/uL 0.1-0.8 H EOSINOPHIL # (test code = EO#) 0.17 x10 3/uL 0.0-0.2 N BASOPHIL # (test code = BA#) 0.06 x10 3/uL 0.0-0.2 N NUCLEATED RBC # (test code = NRBC#) 0.00 x10 3/uL 0.0-0.1 N MANUAL DIFF REQUIRED (test code = MDIFF) NO
[2024-06-14] MEDS ORDERED: METHYLPREDNISOLONE 125 MG INJ ONE (10:53)
[2024-06-14] MEDS ORDERED: IPRATROPIUM BROM 0.5MG/2.5ML ONE (10:53)
[2024-06-14] MEDS ORDERED: Levofloxacin500mg IV 500 MG/100 ML BAG IV ONE (10:54)
[2024-06-14] MEDS ORDERED: NA CHLORIDE 0.9% 1,000 ML ONE ×2 (10:54)
[2024-06-14] MEDS ORDERED: LEVALBUTEROL 1.25 MG/3 ML NEB ONE (10:54)
[2024-06-14 11:08] LABS: Absolute Basophils 0.1 K/uL (0-0.5); Absolute Monocytes 1.1 K/uL (0.1-1.3); Absolute Neutrophil 15.6 K/uL (1.8-8.0); Basophils % 0.4 % (0-1.3); Hematocrit 40.5 % (39.6-49.0); Hemoglobin 13.3 g/dL (13.6-17.9); Lymphocytes % 5.8 % (15.3-44.8); MCH 27.7 pg (27.0-35.0); MCHC 32.9 g/dL (32.0-36.0); MCV 84.3 fL (80-100); MPV 8.5 fL (7.6-11.3); Monocytes % 6.1 % (3.3-12.3); Neutrophils % 87.7 % (41.7-73.7); Platelets 329 thou/uL (152-406); Red Cell Distribution Width 13.7 % (12.1-15.2)
[2024-06-14 11:18] LABS: PT Prothrombin Time 12.3 SECONDS (9.4-12.5); Protime INR 1.17
[2024-06-14 11:27] LABS: Albumin 2.5 g/dL (3.4-5.0); Albumin/Globulin Ratio 0.6 (1.1-1.8); Anion Gap 8.6 mEq/L (5.0-15.0); Bilirubin Total 0.7 mg/dL (0.2-1.0); Globulin 4.5 g/dL (2.3-3.5); Potassium 3.6 mEq/L (3.5-5.1)
[2024-06-14 11:32] LABS: SARS-CoV-2 Antigen CONTROL BLUE LINE VIS/BG OK; SARS-CoV-2 Antigen Rapid Res Negative (Negative)
--- NOTE | 2024-06-14 12:11 | RAD REPORT ---
EXAMINATION: ONE VIEW CHEST XR CLINICAL INDICATION: COUGH TECHNIQUE: Frontal chest projection is submitted. Examination is limited by patient positioning and t echnique. COMPARISON: 10/06/2018 FINDINGS: Bilateral pulmonary opacities are present, greatest in the medial left lung suspicious for bronchitis /infection or mild interstitial pulmonary edema. The heart is upper limit of normal in size. No displaced fractures identified.
[2024-06-14 13:12] LABS: Atypical Lymphocytes 2 %; Band Neutrophils 4 % (0-1); Blood Morphology Comment NOT SEEN (NOT SEEN); Differential Total Cells Count 100; Lymphocytes 9 % (15-42); Monocytes 7 % (0-10); Platelet Estimate ADEQ; Segmented Neutrophils 78 % (40-80)
--- NOTE | 2024-06-14 13:21 | ER ---
Nurse's Notes [facility] Name: Manjit Malagon Age: 74 yrs Sex: Male : 1950 Arrival Date: 06/14/2024 Time: 10:02 Bed 2 Private MD: Diagnosis: Pneumonia due to other specified bacteria-bilateral;Fever, unspecified;Severe sepsis without septic shock;Hypoxemia;Elevated white blood cell count Presentation: 06/14 10:21 Chief complaint: Patient states: Cough and shortness of breath X3 days. Pt also reports cm10 decreased appetite. Coronavirus screen: Client denies travel out of the [place] in the last 14 days. Ebola Screen: Patient denies travel to an Ebola-affected area in the 21 days before illness onset. Initial Sepsis Screen: Does the patient meet any 2 criteria? HR > 90 bpm. Does the patient have a suspected source of infection? No. Patient's initial sepsis screen is negative. Risk Assessment: Do you want to hurt yourself or someone else? Patient reports no desire to harm self or others. Onset of symptoms was June 11, 2024. 10:21 Method Of Arrival: Wheelchair cm10 10:21 Acuity: DARLYN 2 cm10 Triage Assessment: 10:23 General: Appears in no apparent distress. uncomfortable, Behavior is calm, cooperative. cm10 Neuro: No deficits noted. Level of Consciousness is awake, alert, obeys commands, Oriented to person, place, time, situation, Appropriate for age. Respiratory: No deficits noted. Reports shortness of breath cough that is Airway is patent Respiratory effort is even, unlabored, Respiratory pattern is regular, symmetrical. Historical: - Allergies: 10:23 No Known Allergies; cm10 - PMHx: 10:23 Hypertension; cm10 - Immunization history:: Adult Immunizations up to date. - Infectious Disease History:: Denies. - Social history:: Smoking status: Patient/guardian denies using tobacco. - Family history:: not pertinent. Screenin:58 [facility] ED Fall Risk Assessment (Adult) History of falling in the last 3 months, ph including since admission No falls in past 3 months (0 pts) Confusion or Disorientation No (0 pts) Intoxicated or Sedated No (0 pts) Impaired Gait No (0 pts) Mobility Assist Device Used No (0 pt) Altered Elimination No (0 pt) Score/Fall Risk Level 0 - 2 = Low Risk Oriented to surroundings, Maintained a safe environment, Hourly rounding (assess needs \T\ fall precautionary measures) done, Used ambulatory aids as needed (educated on \T\ assisted with). Abuse screen: Denies threats or abuse. Denies injuries from another. Nutritional screening: No deficits noted. Tuberculosis screening: No symptoms or risk factors identified. Assessment: 10:45 General: Appears in no apparent distress. comfortable, well groomed, Behavior is calm, ph cooperative, appropriate for age. Pain: Denies pain. Neuro: Level of Consciousness is awake, alert, obeys commands, Oriented to person, place, time, situation. Cardiovascular: Capillary refill < 3 seconds in bilateral fingers Patient's skin is warm and dry. Respiratory: Reports shortness of breath cough that is productive, Airway is patent Respiratory effort is even, unlabored, Respiratory pattern is regular, symmetrical. GI: No signs and/or symptoms were reported involving the gastrointestinal system. Derm: Skin is pink, warm \T\ dry. Musculoskeletal: Circulation, motion, and sensation intact. Range of motion: intact in all extremities. 12:00 Reassessment: Patient appears in no apparent distress at this time. Patient and/or ph family updated on plan of care and expected duration. Pain level reassessed. Patient is alert, oriented x 3, equal unlabored respirations, skin warm/dry/pink. 13:00 Reassessment: Patient appears in no apparent distress at this time. Patient and/or ph family updated on plan of care and expected duration. Pain level reassessed. Patient is alert, oriented x 3, equal unlabored respirations, skin warm/dry/pink. 15:00 Reassessment: Patient appears in no apparent distress at this time. No changes from previously documented assessment. Patient and/or family updated on plan of care and expected duration. Pain level reassessed. Patient is alert, oriented x 3, equal unlabored respirations, skin warm/dry/pink. Vital Signs: 10:21 BP 133 / 68; Pulse 122; Resp 17; Temp 98.9(O); Pulse Ox 89% on R/A; Weight 79.38 kg; cm10 Height 5 ft. 7 in. ; Pain 3/10; 11:33 BP 143 / 66; Pulse 106; Resp 24; Pulse Ox 97% on Nebulizer Mask; ph 12:52 BP 141 / 74; Pulse 103; Resp 18; Pulse Ox 94% on 2 lpm NC; ph 14:00 BP 142 / 68; Pulse 100; Resp 20; Pulse Ox 95% on 2 lpm NC; ph 15:00 BP 148 / 70; Pulse 103; Resp 20; Temp 97.8; Pulse Ox 96% on 2 lpm NC; ph 16:00 BP 139 / 72; Pulse 98; Resp 18; Temp 98; Pulse Ox 96% 2 lpm ; ph 10:21 Body Mass Index 27.41 (79.38 kg, 170.18 cm) cm10 10:21 Pain Scale: Adult cm10 Vitals: 11:33 Cardiac Rhythm Assessment Sinus tach. ph ED Course: 10:07 Patient arrived in ED. ra3 10:09 Vu Livingston MD is Attending Physician. rasta 10:23 Triage completed. cm10 10:23 Arm band placed on right wrist. Patient placed in an exam room, on a stretcher, on cm10 oxygen. 10:24 Kathya Meeks RN is Primary Nurse. ph 10:58 Initial lab(s) drawn, by ma, sent to lab. COVID swab sent to lab. Flu and/or RSV swab ph sent to lab. Strep swab sent to lab. Inserted saline lock: 20 gauge in right antecubital area, using aseptic technique. Blood collected. Flushed with 10 mL NS. 10:59 Patient has correct armband on for positive identification. Bed in low position. Call ph light in reach. Side rails up X 1. Client placed on continuous cardiac and pulse oximetry monitoring. NIBP monitoring applied. bus driver/monitor on. Door closed. Noise minimized. Warm blanket given. 11:33 No provider procedures requiring assistance completed. ph 11:44 Chest Single View In Process Unspecified. EDMS 13:19 Shon Clark MD is Hospitalizing Provider. rasta 17:00 Patient admitted, IV remains in place. ph Administered Medications: 10:27 CANCELLED (Duplicate Order): ns 0.9% 1000 ml IV at 1000 ml once; to be given as a bolus rasta over 60 minutes 11:20 Drug: Levalbuterol Inhalation 2.5 mg Inhalation once Route: Inhalation; ph 12:00 Follow up: Response: No adverse reaction ph 11:20 Drug: Ipratropium Inhalation Aerosol 0.5 mg Inhalation once Route: Inhalation; ph 12:00 Follow up: Response: No adverse reaction ph 11:25 Drug: NS 0.9% IV (30 ml/kg) 30 ml/kg IV at bolus once; Sepsis Protocol; to be given as ph a bolus over 90 minutes Route: IV; Rate: bolus; Site: right antecubital; 13:00 Follow up: Response: No adverse reaction; IV Status: Completed infusion; IV Intake: ph 2000ml 11:25 Drug: levofloxacin IVPB 500 mg 100 ml IVPB once over 60 mins Volume: 100 ml; Route: ph IVPB; Infused Over: 60 mins; Site: right antecubital; 12:25 Follow up: Response: No adverse reaction; IV Status: Completed infusion; IV Intake: ph 100ml 11:25 Drug: MethylPrednisoLONE IVP 125 mg IVP once Route: IVP; Site: right antecubital; ph 12:00 Follow up: Response: No adverse reaction ph Medication: 10:59 VIS not applicable for this client. ph Intake: 12:25 IV: 100ml; Total: 100ml. ph 13:00 IV: 2000ml; Total: 2100ml. ph Outcome: 13:20 Decision to Hospitalize by Provider. [facility] 17:00 Patient left the ED. ph 17:00 Admitted to Med/surg accompanied by tech, family with patient, via stretcher, with ph oxygen, with chart, 17:00 Condition: stable 17:00 Instructed on the need for admit, Signatures: Dispatcher [employer] Vu Burks MD MD cha Hall, Patricia RN Gosia Currie ph, RN RN Patience Rivas 3
--- NOTE | 2024-06-14 13:21 | EDPHYS ---
Physician Documentation [facility] Name: Manjit Malagon Age: 74 yrs Sex: Male : 1950 Arrival Date: 06/14/2024 Time: 10:02 Bed 2 Private MD: ED Physician Vu Livingston HPI: 06/14 13:13 This 74 yrs old Male presents to ER via Wheelchair with complaints of Cold rasta Symptoms, Decreased Appetite. 13:13 The patient has shortness of breath at rest, with light activity. Onset: The rasta symptoms/episode began/occurred 3 day(s) ago. Duration: The symptoms are continuous, and are steadily getting worse. The patient's shortness of breath is aggravated by coughing, exertion, light activity. The patient or guardian reports cough, described as moderate, difficulty breathing, flu symptoms, arthralgias, low-grade fever, myalgias. Modifying factors: The symptoms are alleviated by elevating head, remaining still, the symptoms are aggravated by activity, lying flat. fever , sob, cough. Associated signs and symptoms: The patient has no apparent associated signs or symptoms. Severity of symptoms: At their worst the symptoms were mild moderate in the emergency department the symptoms have improved moderately. Associated signs and symptoms: Pertinent positives: rhinorrhea, sore throat. Historical: - Allergies: 10:23 No Known Allergies; cm10 - PMHx: 10:23 Hypertension; cm10 - Immunization history:: Adult Immunizations up to date. - Infectious Disease History:: Denies. - Social history:: Smoking status: Patient/guardian denies using tobacco. - Family history:: not pertinent. ROS: 13:15 Constitutional: Negative for fever, chills, and weight loss, Eyes: Negative for injury, rasta pain, redness, and discharge, ENT: Negative for injury, pain, and discharge, Neck: Negative for injury, pain, and swelling, Abdomen/GI: Negative for abdominal pain, nausea, vomiting, diarrhea, and constipation, Back: Negative for injury and pain, : Negative for injury, bleeding, discharge, and swelling, MS/Extremity: Negative for injury and deformity, Skin: Negative for injury, rash, and discoloration, Psych: Negative for depression, anxiety, suicide ideation, homicidal ideation, and hallucinations, Allergy/Immunology: Negative for hives, rash, and allergies, Endocrine: Negative for neck swelling, polydipsia, polyuria, polyphagia, and marked weight changes, Hematologic/Lymphatic: Negative for swollen nodes, abnormal bleeding, and unusual bruising, 13:15 Cardiovascular: Positive for palpitations, 13:15 Respiratory: Positive for cough, shortness of breath, wheezing, inspiratory, expiratory, 13:15 Neuro: Positive for weakness, Exam: 13:15 Head/Face: Normocephalic, atraumatic. Eyes: Pupils equal round and reactive to light, rasta extra-ocular motions intact. Lids and lashes normal. Conjunctiva and sclera are non-icteric and not injected. Cornea within normal limits. Periorbital areas with no swelling, redness, or edema. ENT: Nares patent. No nasal discharge, no septal abnormalities noted. Tympanic membranes are normal and external auditory canals are clear. Oropharynx with no redness, swelling, or masses, exudates, or evidence of obstruction, uvula midline. Mucous membranes moist. Neck: Trachea midline, no thyromegaly or masses palpated, and no cervical lymphadenopathy. Supple, full range of motion without nuchal rigidity, or vertebral point tenderness. No Meningismus. Chest/axilla: Normal chest wall appearance and motion. Nontender with no deformity. No lesions are appreciated. Abdomen/GI: Soft, non-tender, with normal bowel sounds. No distension or tympany. No guarding or rebound. No evidence of tenderness throughout. Back: No spinal tenderness. No costovertebral tenderness. Full range of motion. Male : Normal genitalia with no discharge or lesions. Skin: Warm, dry with normal turgor. Normal color with no rashes, no lesions, and no evidence of cellulitis. MS/ Extremity: Pulses equal, no cyanosis. Neurovascular intact. Full, normal range of motion., bilateral aka Neuro: Awake and alert, GCS 15, oriented to person, place, time, and situation. Cranial nerves II-XII grossly intact. Motor strength 5/5 in all extremities. Sensory grossly intact. Cerebellar exam normal. Normal gait. Psych: Awake, alert, with orientation to person, place and time. Behavior, mood, and affect are within normal limits. 13:15 Constitutional: The patient appears febrile, 13:15 Cardiovascular: Rate: tachycardic, actual rate is 117 bpm, Rhythm: regular, Heart sounds: normal, Edema: is not appreciated, JVD: is not appreciated, 13:15 Respiratory: mild respiratory distress is noted, Respirations: labored breathing, is not present, Breath sounds: bronchial sounds, decreased breath sounds, that are moderate, are located in both bases, rhonchi, that are mild, are scattered, stridor, is not appreciated, + upper airway congestion. wheezing: expiratory is heard diffusely, Vital Signs: 10:21 BP 133 / 68; Pulse 122; Resp 17; Temp 98.9(O); Pulse Ox 89% on R/A; Weight 79.38 kg; cm10 Height 5 ft. 7 in. ; Pain 3/10; 11:33 BP 143 / 66; Pulse 106; Resp 24; Pulse Ox 97% on Nebulizer Mask; ph 12:52 BP 141 / 74; Pulse 103; Resp 18; Pulse Ox 94% on 2 lpm NC; ph 14:00 BP 142 / 68; Pulse 100; Resp 20; Pulse Ox 95% on 2 lpm NC; ph 15:00 BP 148 / 70; Pulse 103; Resp 20; Temp 97.8; Pulse Ox 96% on 2 lpm NC; ph 16:00 BP 139 / 72; Pulse 98; Resp 18; Temp 98; Pulse Ox 96% 2 lpm ; ph 10:21 Body Mass Index 27.41 (79.38 kg, 170.18 cm) cm10 10:21 Pain Scale: Adult cm10 MDM: 10:09 Medical Screening Exam initiated rasta 13:16 Differential diagnosis: obstructed airway, tracheal injury, bronchitis, flu, URI, viral rasta Infection, bacterial infection, URI, bronchitis, pneumonia UTI. Antibiotic administration: Levaquin given. Differential Diagnosis altered mental status, sepsis, flu. Immunization status: Pneumococcal vaccine: within last 5 years. Influenza vaccine: within last 5 years. Data reviewed: vital signs, nurses notes, lab test result(s), EKG, radiologic studies, plain films. Consideration of Admission/Observation Patient was admitted/placed on observation. Escalation of care including admission/observation considered. I considered the following discharge prescriptions or medication management in the emergency department Medications were administered in the Emergency Department. See MAR. Independent interpretation of the following test(s) in the Emergency Department EKG: See my EKG interpretation above. Test considered but Not performed: CT: no ct chest. Care significantly affected by the following chronic conditions: Hypertension. 06/14 10:11 Order name: CBC with Diff [facility] 06/14 10:11 Order name: Comprehensive Metabolic Panel [facility] 06/14 10:11 Order name: Urinalysis w/ reflexes [facility] 06/14 10:11 Order name: Flu [facility] 06/14 10:11 Order name: Strep [facility] 06/14 10:29 Order name: Blood Culture Adult (2) [facility] 06/14 10:29 Order name: Lactate w/ 2H reflex if indic. [facility] 06/14 10:29 Order name: Protime (+inr) [facility] 06/14 10:29 Order name: Ptt, Activated [facility] 06/14 10:32 Order name: Blood Culture Adult (2) ph 06/14 10:32 Order name: Lactate w/ 2H reflex if indic. ph 06/14 10:32 Order name: PT-INR 06/14 10:32 Order name: Ptt, Activated ph 06/14 11:04 Order name: Comprehensive Metabolic Panel [facility] 06/14 11:04 Order name: SARS-COV-2 Antigen Rapid [facility] 06/14 11:04 Order name: Lactate w/ 2H reflex if indic. [facility] 06/14 11:04 Order name: CBC with Automated Diff [facility] 06/14 11:04 Order name: Protime (+INR) [facility] 06/14 11:04 Order name: PTT, Activated Partial Thromb [facility] 06/14 11:04 Order name: Blood Culture [facility] 06/14 11:04 Order name: Blood Culture [facility] 06/14 11:04 Order name: Influenza Screen (A [facility] 06/14 11:04 Order name: Group A Streptococcus Rapid Sc [facility] 06/14 11:13 Order name: CBC with Automated Diff; Complete Time: 13:22 [facility] 06/14 11:15 Order name: Manual Differential [facility] 06/14 11:18 Order name: Protime (+INR); Complete Time: 13:05 [facility] 06/14 11:18 Order name: PTT, Activated Partial Thromb; Complete Time: 13:05 [facility] 06/14 11:27 Order name: Comprehensive Metabolic Panel; Complete Time: 13:05 [facility] 06/14 11:27 Order name: Lactate w/ 2H reflex if indic.; Complete Time: 13:05 [facility] 06/14 11:29 Order name: Influenza Screen (A ; Complete Time: 13:05 [facility] 06/14 11:30 Order name: Group A Streptococcus Rapid Sc; Complete Time: 13:05 [facility] 06/14 11:30 Order name: Throat Culture; Complete Time: 13:05 [facility] 06/14 11:32 Order name: SARS-COV-2 Antigen Rapid; Complete Time: 13:05 [facility] 06/14 11:34 Order name: Throat Culture [facility] 06/14 13:12 Order name: Manual Differential; Complete Time: 13:22 [facility] 06/14 10:11 Order name: Chest Pa And Lat (2 Views) XRAY [facility] 06/14 10:58 Order name: Chest Single View [facility] 06/14 12:11 Order name: RAD; Complete Time: 13:05 [facility] 06/14 10:29 Order name: Accucheck; Complete Time: 10:57 [facility] 06/14 10:29 Order name: Cardiac monitoring; Complete Time: 10:57 [facility] 06/14 10:29 Order name: EKG - Nurse/Tech; Complete Time: 11:34 [facility] 06/14 10:29 Order name: IV Saline Lock - Large Bore; Complete Time: 10:58 [facility] 06/14 10:29 Order name: Labs collected and sent; Complete Time: 10:58 [facility] 06/14 10:29 Order name: O2 Per Protocol; Complete Time: 10:35 [facility] 06/14 10:29 Order name: O2 Sat Monitoring; Complete Time: 10:35 [facility] 06/14 10:29 Order name: Vital Signs; Complete Time: 10:35 [facility] Administered Medications: 10:27 CANCELLED (Duplicate Order): ns 0.9% 1000 ml IV at 1000 ml once; to be given as a bolus [facility] over 60 minutes 11:20 Drug: Levalbuterol Inhalation 2.5 mg Inhalation once Route: Inhalation; ph 12:00 Follow up: Response: No adverse reaction ph 11:20 Drug: Ipratropium Inhalation Aerosol 0.5 mg Inhalation once Route: Inhalation; ph 12:00 Follow up: Response: No adverse reaction ph 11:25 Drug: NS 0.9% IV (30 ml/kg) 30 ml/kg IV at bolus once; Sepsis Protocol; to be given as ph a bolus over 90 minutes Route: IV; Rate: bolus; Site: right antecubital; 13:00 Follow up: Response: No adverse reaction; IV Status: Completed infusion; IV Intake: ph 2000ml 11:25 Drug: levofloxacin IVPB 500 mg 100 ml IVPB once over 60 mins Volume: 100 ml; Route: ph IVPB; Infused Over: 60 mins; Site: right antecubital; 12:25 Follow up: Response: No adverse reaction; IV Status: Completed infusion; IV Intake: ph 100ml 11:25 Drug: MethylPrednisoLONE IVP 125 mg IVP once Route: IVP; Site: right antecubital; ph 12:00 Follow up: Response: No adverse reaction ph Disposition Summary: 06/14/24 13:20 Hospitalization Ordered Notes: Hospitalization Status: Inpatient Admission rasta Provider: Shon Clark cha Location: Telemetry/MedSurg (Inpatient) rasta Condition: Fair rasta Problem: new rasta Symptoms: have improved rasta Bed/Room Type: Standard [facility] Room Assignment: 406(06/14/24 14:55) bd Diagnosis - Pneumonia due to other specified bacteria - bilateral rasta - Fever, unspecified rasta - Severe sepsis without septic shock rasta - Hypoxemia rasta - Elevated white blood cell count rasta Forms: - Medication Reconciliation Form rasta - SBAR form rasta - Leadership Thank You Letter rasta Signatures: Dispatcher [employer] EDMS Sally Santana Corey, MD MD cha Attema, Lee, CUSTOMER SUPPORT REPRESENTATIVE-C CUSTOMER SUPPORT REPRESENTATIVE-Cla1 Kathya Meeks RN RN Gosia Chadwick RN RN cm10 Corrections: (The following items were deleted from the chart) 10:27 10:11 NS 0.9% IV 1000 ml IV at 1000 ml once; to be given as a bolus over 60 minutes rasta ordered. rasta 10:30 10:30 BLOOD CULTURE*+BA.LAB.BRZ ordered. EDMS EDMS 10:30 10:30 LACTATE+C.LAB.BRZ ordered. EDMS EDMS 10:30 10:30 PROTIME (+INR)+COAG.LAB.BRZ ordered. EDMS EDMS 10:30 10:30 PTT, ACTIVATED+COAG.LAB.BRZ ordered. EDMS EDMS 13:36 10:12 SARS-COV-2 Antigen Rapid+I.LAB.BRZ ordered. EDMS EDMS 14:55 13:20 rasta bd
--- NOTE | 2024-06-14 13:56 | P.HP ---
Certification for Inpatient Patient admitted to: Inpatient With expected LOS: >2 Midnights Patient will require the following post-hospital care: None Practitioner: I am a practitioner with admitting privileges, knowledge of patient current condition, hospital course, and medical plan of care. Services: Services provided to patient in accordance with Admission requirements found in Title 42 Section 412.3 of the Code of Federal Regulations Patient History Date of Service: 06/14/24 Reason for admission: Pneumonia, sepsis History of Present Illness: 74-year-old otherwise healthy male presents to the emergency department with chief complaint of cough and shortness of breath for the last 3 days. No ill contacts, no recent illnesses or hospitalizations are reported. He does not smoke, has not smoked since the 80s. Patient was evaluated in the emergency department his labs are significant for leukocytosis with a white blood cell count of 17.8, sodium 133 BUN 20 ALT 155 AST 67 chest x-ray shows bilateral pulmonary opacities greatest in the medial left lung suspicious for bronchitis/infection or mild interstitial pulmonary edema. Suspect pneumonia/bilateral pneumonia. Flu, COVID test are negative. Patient will be admitted for further evaluation and management of sepsis, pneumonia. Allergies No Known Allergies Allergy (Unverified 07/31/17 15:23) - Past Medical/Surgical History -: None -: None Psychosocial/ Personal History: Patient lives at home with his - Family History Father -: Heart disease - Social History Smoking Status: Former smoker Alcohol use: Yes CD- Drugs: No Caffeine use: Yes Place of Residence: Home Review of Systems 10-point ROS is otherwise unremarkable Respiratory: Cough, Shortness of Breath, SOB with Excertion, Sputum Physical Examination - Physical Exam General: Alert, In no apparent distress, Oriented x3 HEENT: Atraumatic, PERRLA, EOMI Neck: Supple, 2+ carotid pulse no bruit, No LAD Respiratory: Diminished Cardiovascular: Regular rate/rhythm, Normal S1 S2 Gastrointestinal: Normal bowel sounds, No tenderness Musculoskeletal: No tenderness Integumentary: No rashes Neurological: Normal gait, Normal speech, Normal strength at 5/5 x4 extr Lymphatics: No axilla or inguinal lymphadenopathy - Studies Laboratory Data (last 24 hrs) 06/14/24 06/14/24 06/14/24 10:45 10:45 10:45 WBC 17.80 H Hgb 13.3 L Hct 40.5 Plt Count 329 PT 12.3 INR 1.17 APTT 28.0 Sodium 133 L Potassium 3.6 BUN 20 H Creatinine 1.05 Glucose 120 H Total Bilirubin 0.7 AST 61 H ALT 155 H Alkaline Phosphatase 106 Microbiology Data (last 24 hrs): 06/14/24 10:45 Throat Group A Streptococcus Rapid Screen - Final 06/14/24 10:45 Nasopharnyx Influenza Type A Antigen Screen - Final 06/14/24 10:45 Nasopharnyx Influenza Type B Antigen Screen - Final Assessment and Plan - Plan Assessment: Sepsis secondary to bilateral pneumonia Acute hypoxic respiratory failure secondary to above Hyponatremiamild Transaminitis Plan: Sepsis secondary to bilateral pneumonia Acute hypoxic respiratory failure secondary to above Blood cultures obtained in ED Lactate less than 2 Continue antibiotics Rocephin/Zithromax Daily room air saturations Supplemental oxygen as needed Await blood culture Hyponatremiamild Gentle IV fluids overnight Repeat chemistry in morning Transaminitis Mild elevations in AST/ALT Continue with IV hydration, recheck labs in the morning No abdominal pain, tenderness Denies regular drinking DVT PPX: Lovenox Code status: Full Discharge Plan: Home Plan to discharge in: 48 Hours - Advance Directives Does patient have a Living Will: No Does patient have a Durable POA for Healthcare: No - Code Status/Comfort Care Code Status Assessed: Yes (Full code) Critical Care: No Time Spent Managing Pts Care (In Minutes): 61
[2024-06-14] MEDS ORDERED: HYDROCODONE/CHLORPHEN 5 ML/OSYR PO PRN (17:23)
[2024-06-14] MEDS ORDERED: ONDANSETRON 4 MG/2 ML VIAL IV PRN (17:23)
[2024-06-14] MEDS ORDERED: ALBUTEROL 2.5 MG/3 ML NEB SOL NEB PRN (17:23)
[2024-06-14] MEDS: NA CHLORIDE 0.9% 1,000 ML IV SCH (17:59)
[2024-06-14] MEDS: ENOXAPARIN 40 MG/0.4 ML SQ SCH (17:59)
[2024-06-15 06:44] LABS: Absolute Basophils 0.1 K/uL (0-0.5); Absolute Monocytes 0.8 K/uL (0.1-1.3); Absolute Neutrophil 15.2 K/uL (1.8-8.0); Basophils % 0.3 % (0-1.3); Hemoglobin 12.5 g/dL (13.6-17.9); MCH 28.2 pg (27.0-35.0); MCHC 33.7 g/dL (32.0-36.0); MCV 83.8 fL (80-100); MPV 8.7 fL (7.6-11.3); Monocytes % 4.5 % (3.3-12.3); Neutrophils % 89.2 % (41.7-73.7); Platelets 305 thou/uL (152-406); RBC Red Blood Cell Count 4.42 M/uL (4.33-5.43)
[2024-06-15 07:12] LABS: Albumin 2.1 g/dL (3.4-5.0); Albumin/Globulin Ratio 0.5 (1.1-1.8); Anion Gap 8.2 mEq/L (5.0-15.0); Bilirubin Total 0.3 mg/dL (0.2-1.0); Potassium 4.2 mEq/L (3.5-5.1); Protein, Total 6.1 g/dL (6.4-8.2); Thyroid Stimulating Hormone 0.929 uIU/mL (0.358-3.740)
[2024-06-15] MEDS: AZITHROMYCIN IV 500 MG in NA CHLORIDE 0.9% 250 ML IVPB SCH (08:07)
[2024-06-15] MEDS: CEFTRIAXONE 1,000 MG in NA CHLORIDE 0.9% 50 ML IVPB SCH (08:07)
--- NOTE | 2024-06-15 11:42 | P.PN ---
Date of Service: 06/15/24 Subjective: Still with shortness of breath but improving Cough improved No acute events overnight ROS: 10 point ROS as noted above, otherwise negative Physical exam GEN: Alert, oriented, NAD HEENT: Normal conjunctiva, sclera anicteric CV: Regular rate and rhythm, no edema Pulm: Nonlabored respirations on nasal cannula oxygen2 L, breath sounds diminished ABD: Soft, nontender, nondistended MSK: No joint tenderness Integumentary: No rashes Neuro: Normal speech, normal affect Vitals reviewed Assessment: Sepsis secondary to bilateral pneumonia Acute hypoxic respiratory failure secondary to above Hyponatremiamild Transaminitis Plan: Sepsis secondary to bilateral pneumonia Acute hypoxic respiratory failure secondary to above Blood cultures obtained in ED Lactate less than 2 Continue antibiotics Rocephin/Zithromax Daily room air saturations Supplemental oxygen as needed Await blood culture Hyponatremiamild Improved, IVF stopped Monitor chemistry daily Transaminitis Mild elevations in AST/ALT-improved No abdominal pain, tenderness Denies regular drinking DVT PPX: Lovenox Code status: Full Discharge Plan: Home Plan to discharge in: 48 Hours Time Spent Managing Pts Care (In Minutes): 35
[2024-06-15 19:41] LABS: Specific Gravity 1.024 (1.005-1.030); Urine Bilirubin NEGATIVE (Negative); Urine Blood Negative (Negative); Urine Clarity Clear (Clear); Urine Color Light-Yellow (Yellow); Urine Glucose NEGATIVE (Negative); Urine Ketones NEGATIVE (Negative); Urine Microscopic Reflex YN NO UMIC; Urine Nitrite NEGATIVE (Negative); Urine Protein NEGATIVE (Negative); Urine Urobilinogen Normal (Normal)
[2024-06-16 06:35] LABS: Absolute Eosinophils 0.1 K/uL (0-0.5); Absolute Lymphocytes (CBC) 1.5 K/uL (0.7-4.9); Absolute Monocytes 0.8 K/uL (0.1-1.3); Absolute Neutrophil 11.9 K/uL (1.8-8.0); Basophils % 0.3 % (0-1.3); Eosinophils % 0.7 % (0-4.4); Hematocrit 39.9 % (39.6-49.0); Hemoglobin 13.3 g/dL (13.6-17.9); Lymphocytes % 10.4 % (15.3-44.8); MCH 28.1 pg (27.0-35.0); MCHC 33.4 g/dL (32.0-36.0); MCV 84.1 fL (80-100); MPV 8.3 fL (7.6-11.3); Monocytes % 5.5 % (3.3-12.3); Neutrophils % 83.1 % (41.7-73.7); Platelets 310 thou/uL (152-406); RBC Red Blood Cell Count 4.75 M/uL (4.33-5.43); Red Cell Distribution Width 14.1 % (12.1-15.2)
[2024-06-16 06:49] LABS: Albumin 2.2 g/dL (3.4-5.0); Albumin/Globulin Ratio 0.5 (1.1-1.8); Anion Gap 12.9 mEq/L (5.0-15.0); Bilirubin Total 0.4 mg/dL (0.2-1.0); Globulin 4.1 g/dL (2.3-3.5); Potassium 3.9 mEq/L (3.5-5.1); Protein, Total 6.3 g/dL (6.4-8.2)
[2024-06-16] MEDS: ACETAMINOPHEN 500 MG TAB PO PRN (07:20)
[2024-06-16] MEDS: POTASSIUM CL SA 10 MEQ TAB PO ONE (07:41)
--- NOTE | 2024-06-16 08:40 | P.DS ---
Admission Date: 06/14/24 Discharge Date: 06/16/24 Disposition: ROUTINE DISCHARGE Discharge Condition: GOOD Reason for Admission: Pneumonia, sepsis Brief History of Present Illness: 74-year-old otherwise healthy male presents to the emergency department with chief complaint of cough and shortness of breath for the last 3 days. No ill contacts, no recent illnesses or hospitalizations are reported. He does not smoke, has not smoked since the 80s. Patient was evaluated in the emergency department his labs are significant for leukocytosis with a white blood cell count of 17.8, sodium 133 BUN 20 ALT 155 AST 67 chest x-ray shows bilateral pulmonary opacities greatest in the medial left lung suspicious for bronchitis/infection or mild interstitial pulmonary edema. Suspect pneumonia/bilateral pneumonia. Flu, COVID test are negative. Patient will be admitted for further evaluation and management of sepsis, pneumonia. Hospital Course: Assessment: Sepsis secondary to bilateral pneumonia Acute hypoxic respiratory failure secondary to above Hyponatremiamild Transaminitis Patient was admitted to the hospital for community-acquired pneumonia. On admission his white blood cell count was 17.8 and he was requiring nasal cannula oxygen. He has been treated with IV antibiotics Rocephin/Zithromax and had clinical improvement. He is currently breathing well on room air in no distress, white blood cell count improving and stable for discharge with outpatient follow-up. Prescriptions for cefdinir, Zithromax sent to pharmacy [facility] in [place] as well as an as needed cough medicine. Please follow-up with your primary care doctor in 1 to 2 weeks. Vital Signs/Physical Exam: Temp Pulse Resp BP Pulse Ox 97.4 F 80 18 147/59 H 93 06/16/24 04:00 06/16/24 04:00 06/16/24 04:00 06/16/24 04:00 06/16/24 04:00 General: Alert, In no apparent distress, Oriented x3 HEENT: Atraumatic, PERRLA Neck: Supple, JVD not distended Respiratory: Clear to auscultation bilaterally, Normal air movement Cardiovascular: Regular rate/rhythm, Normal S1 S2 Gastrointestinal: Normal bowel sounds, No tenderness Musculoskeletal: No tenderness Integumentary: No rashes Neurological: Normal speech, Normal affect Laboratory Data at Discharge: WBC 14.30 thou/uL (4.3-10.9) H 06/16/24 06:13 Hgb 13.3 g/dL (13.6-17.9) L 06/16/24 06:13 Hct 39.9 % (39.6-49.0) 06/16/24 06:13 Plt Count 310 thou/uL (152-406) 06/16/24 06:13 PT 12.3 SECONDS (9.4-12.5) 06/14/24 10:45 INR 1.17 06/14/24 10:45 APTT 28.0 SECONDS (24.3-36.9) 06/14/24 10:45 Sodium 135 mEq/L (136-145) L 06/16/24 06:13 Potassium 3.9 mEq/L (3.5-5.1) 06/16/24 06:13 BUN 19 mg/dL (7-18) H 06/16/24 06:13 Creatinine 0.91 mg/dL (0.70-1.30) 06/16/24 06:13 Glucose 93 mg/dL (74-106) 06/16/24 06:13 Total Bilirubin 0.4 mg/dL (0.2-1.0) 06/16/24 06:13 AST 33 U/L (15-37) 06/16/24 06:13 ALT 128 U/L (16-61) H 06/16/24 06:13 Alkaline Phosphatase 84 U/L (45-117) 06/16/24 06:13 Home Medications: Azithromycin Tab [Zithromax*] 250 mg PO DAILY 5 Days #5 tab 06/16/24 Benzonatate [Tessalon Perle] 100 mg PO TID PRN #25 cap 06/16/24 Cefdinir [Cefdinir*] 300 mg PO BID 5 Days #10 cap 06/16/24 New Medications: Cefdinir [Cefdinir*] 300 mg PO BID 5 Days #10 cap Benzonatate [Tessalon Perle] 100 mg PO TID PRN #25 cap PRN Reason: Cough Azithromycin Tab [Zithromax*] 250 mg PO DAILY 5 Days #5 tab Physician Discharge Instructions: Patient was admitted to the hospital for community-acquired pneumonia. On admission his white blood cell count was 17.8 and he was requiring nasal cannula oxygen. He has been treated with IV antibiotics Rocephin/Zithromax and had clinical improvement. He is currently breathing well on room air in no distress, white blood cell count improving and stable for discharge with outpatient follow-up. Prescriptions for cefdinir, Zithromax sent to pharmacy [facility] in [place] as well as an as needed cough medicine. Please follow-up with your primary care doctor in 1 to 2 weeks. Diet: Regular Activity: Ad ly Followup: Osiel Piper DO [Primary Care Provider] - 1-2 Weeks Time spent managing pt's care (in minutes): 36
--- NOTE | 2024-06-16 11:58 | EKG ---
Test Date: 2024-06-14 Test Time: 11:18:36 Book Author: PH MEASUREMENT RESULTS: Intervals: Rate: 105 MO: 136 QRSD: 76 QT: 346 QTc: 457 [place]: P: 66 MO: 136 QRS: 2 T: 34 INTERPRETIVE STATEMENTS: Sinus tachycardia Septal infarct, age undetermined Abnormal ECG No previous ECG available for comparison Electronically Signed On 06-16-24 11:55:59 [employer]ESS[employer] HELPER by Jhonny Schuler
[2024-06-17 01:31] VITALS: BP 147/59; TEMP 97.4; O2SAT 93; BMI 27.3
== END 2024-06-16 09:42 | disposition home or self-care (01) | DRG 871 ==
LOC: ER 10:02 → ERHOLD 13:41 → 4TH 16:28
PROVIDERS: ADMIT Hospitalist; ATTEND Hospitalist
DX: A41.9 Sepsis, unspecified organism (principal); J18.9 Pneumonia, unspecified organism; J96.01 Acute respiratory failure with hypoxia; E87.1 Hypo-osmolality and hyponatremia; R65.20 Severe sepsis without septic shock; I10 Essential (primary) hypertension; R74.01 Elevation of levels of liver transaminase levels; Z11.52 Encounter for screening for COVID-19; Z87.891 Personal history of nicotine dependence
CPT/HCPCS: 36415; 71045; 80053; 81003; 83605; 84439; 84443; 85025; 85610; 85730; 87040; 87070; 87081; 87804; 87811; 93005; 96365; 96366; 96368; 96375; 99285; J0696; J1650; J2919; J7030; J7050; J7613; J7614; J7644